=== PATIENT | male | born 1955 | race Caucasian/White ===

== ENCOUNTER 2017-06-27 09:57 | Inpatient (IN) | payer BC ==
[2017-06-27] MEDS ORDERED: Sodium Chloride 0.9% 10 ML Syringe FLUSH PRN (10:20)
[2017-06-27] MEDS ORDERED: methylPREDNISolone Sodium Succinate 125 MG/2 ML SDV IVPUSH ONE (10:21)
[2017-06-27] MEDS ORDERED: Albuterol/Ipratropium 3.0-0.5 MG/3 ML Neb Soln NEB ONE ×2 (10:21→11:40)
--- NOTE | 2017-06-27 10:51 | EDM.PDOC ---
ED HPI GENERAL MEDICAL PROBLEM - General Chief Complaint: Respiratory Problem Stated Complaint: SOB Time Seen by Provider: 06/27/17 10:15 Source of Information: Reports: Patient, Provider History Limitations: Reports: No Limitations - History of Present Illness INITIAL COMMENTS - FREE TEXT/NARRATIVE: The patient presents with a cough, chills and low oxygen saturations. He went to the walk in clinic and his sats were 84%. He was 88% on room air here. This has been going on for a few days. He has a history of asthma. He is on advair. He does not think he has been wheezing. He is coughing up first yellow sputum but now white. He has no measured temp at home. He does not smoke. He has no chest pain. Onset: Gradual Duration: Day(s): Severity: Moderate Improves with: Reports: None Worsens with: Reports: None Associated Symptoms: Reports: Cough, cough w sputum, Fever/Chills, Shortness of Breath. Denies: Chest Pain, Headaches, Nausea/Vomiting - Related Data Allergies Allergy/AdvReac Type Severity Reaction Status Date / Time No Known Allergies Allergy Verified 06/27/17 10:05 Home Meds: Home Meds Diltiazem [Tiazac] 180 mg PO DAILY 06/27/17 [History] FLUoxetine [PROzac] 40 mg PO DAILY 06/27/17 [History] Metoprolol? 1 tab PO DAILY 06/27/17 [History] Omeprazole [priLOSEC OTC] 20 mg PO DAILY 06/27/17 [History] Valsartan-Hctz? 06/27/17 [History] Past Medical History Cardiovascular History: Reports: Hypertension Gastrointestinal History: Reports: GERD Psychiatric History: Reports: Anxiety Social & Family History - Recreational Drug Use Recreational Drug Use: No ED ROS GENERAL - Review of Systems Review Of Systems: See Below Constitutional: Reports: Chills. Denies: Fever HEENT: Reports: No Symptoms Respiratory: Reports: Shortness of Breath, Cough, Sputum Cardiovascular: Reports: No Symptoms Endocrine: Reports: No Symptoms GI/Abdominal: Reports: No Symptoms : Reports: No Symptoms Musculoskeletal: Reports: No Symptoms ED EXAM, GENERAL - Physical Exam Exam: See Below Exam Limited By: No Limitations General Appearance: Alert, No Apparent Distress Ears: Normal External Exam Nose: Normal Inspection Head: Atraumatic, Normocephalic Neck: Normal Inspection Respiratory/Chest: No Respiratory Distress, Decreased Breath Sounds, Rhonchi Cardiovascular: Regular Rate, Rhythm, No Edema, No Murmur GI/Abdominal: Soft, Non-Tender, No Organomegaly, No Mass Back Exam: Normal Inspection Extremities: Normal Inspection Course - Vital Signs Last Recorded V/S: Last Vital Signs Temp 98.8 F 06/27/17 10:06 Pulse 78 06/27/17 10:06 Resp 18 06/27/17 10:06 BP 152/94 H 06/27/17 10:06 Pulse Ox 95 06/27/17 11:40 - Orders/Labs/Meds Orders: Active Orders 24 hr Category Date Time Status Cardiac Monitoring [RC] . DIRECTED Care 06/27/17 10:20 Active Oxygen Therapy [RC] PRN Care 06/27/17 10:20 Active Peripheral IV Care [RC] . DIRECTED Care 06/27/17 10:21 Active RT Aerosol Therapy [RC] ASDIRECTED Care 06/27/17 10:21 Active RT Aerosol Therapy [RC] ASDIRECTED Care 06/27/17 11:40 Active CULTURE BLOOD [BC] Stat Lab 06/27/17 12:10 Received CULTURE BLOOD [BC] Stat Lab 06/27/17 12:15 Received Sodium Chloride 0.9% [Normal Saline] 1,000 ml Med 06/27/17 12:30 Active IV ASDIRECTED cefTRIAXone [Rocephin] 2 gm Med 06/27/17 12:19 Active Sodium Chloride 0.9% [Normal Saline] 100 ml IV ONETIME Blood Culture x2 Reflex Set [OM.PC] Stat Oth 06/27/17 11:51 Ordered Peripheral IV Insertion Adult [OM.PC] Stat Oth 06/27/17 10:20 Ordered Medication Orders Ceftriaxone Sodium 2 gm/ (Sodium Chloride) 100 mls @ 100 mls/hr IV ONETIME ONE Stop: 06/27/17 13:18 Last Admin: 06/27/17 12:38 Dose: 100 mls/hr Sodium Chloride (Normal Saline) 1,000 mls @ 150 mls/hr IV ASDIRECTED THERESA Last Admin: 06/27/17 12:36 Dose: 150 mls/hr Labs: Laboratory Tests 06/27/17 06/27/17 Range/Units 10:24 10:24 WBC 8.88 (4.23-9.07) K/mm3 RBC 4.70 (4.63-6.08) M/mm3 Hgb 15.2 (13.7-17.5) gm/L Hct 44.1 (40.1-51.0) % MCV 93.8 H (79.0-92.2) fl MCH 32.3 H (25.7-32.2) pg MCHC 34.5 (32.2-35.5) g/dl RDW Std Deviation 43.0 (35.1-43.9) fL Plt Count 237 (163-337) K/mm3 MPV 9.4 (9.4-12.3) fl Neut % (Auto) 75.6 H (34.0-67.9) % Lymph % (Auto) 16.3 L (21.8-53.1) % [place] % (Auto) 6.1 (5.3-12.2) % Eos % (Auto) 1.7 (0.8-7.0) Baso % (Auto) 0.1 (0.1-1.2) % Neut # (Auto) 6.71 H (1.78-5.38) K/mm3 Lymph # (Auto) 1.45 (1.32-3.57) K/mm3 [place] # (Auto) 0.54 (0.30-0.82) K/mm3 Eos # (Auto) 0.15 (0.04-0.54) K/mm3 Baso # (Auto) 0.01 (0.01-0.08) K/mm3 Sodium 137 (136-145) mEq/L Potassium 2.9 L (3.5-5.1) mEq/L Chloride 100 (98-107) mEq/L Carbon Dioxide 32 (21-32) mEq/L Anion Gap 7.9 (5-15) BUN 9 (7-18) mg/dL Creatinine 1.1 (0.7-1.3) mg/dL Est Cr Clr Drug Dosing 73.74 mL/min Estimated GFR (MDRD) > 60 (>60) mL/min BUN/Creatinine Ratio 8.2 L (14-18) Glucose 105 (74-106) mg/dL Calcium 8.7 (8.5-10.1) mg/dL Total Bilirubin 0.8 (0.2-1.0) mg/dL AST 17 (15-37) U/L ALT 29 (16-63) U/L Alkaline Phosphatase 92 (46-116) U/L Total Protein 7.0 (6.4-8.2) g/dl Albumin 2.7 L (3.4-5.0) g/dl Globulin 4.3 gm/dL Albumin/Globulin Ratio 0.6 L (1-2) Meds: Medications Generic Name Dose Route Start Last Admin Trade Name Freq PRN Reason Stop Dose Admin Ceftriaxone Sodium 2 gm/ 100 mls @ 100 mls/hr 06/27/17 12:19 06/27/17 12:38 Sodium Chloride IV 06/27/17 13:18 100 mls/hr ONETIME ONE Administration Sodium Chloride 1,000 mls @ 150 mls/hr 06/27/17 12:30 06/27/17 12:36 Normal Saline IV 150 mls/hr ASDIRECTED THERESA Administration Discontinued Medications Generic Name Dose Route Start Last Admin Trade Name Freq PRN Reason Stop Dose Admin Albuterol/Ipratropium 3 ml 06/27/17 10:21 06/27/17 10:32 Duoneb 3.0-0.5 Mg/3 Ml NEB 06/27/17 10:22 3 ml ONETIME ONE Administration Albuterol/Ipratropium 3 ml 06/27/17 11:40 06/27/17 12:09 Duoneb 3.0-0.5 Mg/3 Ml NEB 06/27/17 11:41 3 ml ONETIME ONE Administration Ceftriaxone Sodium 2 gm/ 100 mls @ 100 mls/hr 06/27/17 11:51 Sodium Chloride IV 06/27/17 12:50 ONETIME ONE Methylprednisolone Sodium Succinate 125 mg 06/27/17 10:21 06/27/17 10:28 Solu-Medrol IVPUSH 06/27/17 10:22 125 mg ONETIME ONE Administration Sodium Chloride 10 ml 06/27/17 10:20 06/27/17 10:26 Saline Flush FLUSH 10 ml ASDIRECTED PRN Administration Keep Vein Open - Re-Assessments/Exams Free Text/Narrative Re-Assessment/Exam: 06/27/17 10:51 I ordered an IV saline lock, CXR, oxygen, labs, duoneb, and solu-medrol 125mg IV. 06/27/17 12:40 His CXR shows patchy areas of increased density throughout both lungs most likely representing multifocal pneumonia. Please correlate if patient has infectious symptoms. He does. His CBC looks good though. My nurse tried to get him off of the oxygen but his oxygen saturations went down to 88%. She put the oxygen back on and I ordered a duoneb, blood cultures and rocephin 2 grams IV. After the treatment my nurse turned his oxygen down to 1L from 3L and his oxygen saturations dropped to 88%. I feel he needs to be admitted. I called Dr Hampton and she agreed to the admission. Departure - Departure Time of Disposition: 12:50 Disposition: Admitted As Inpatient 68 Condition: Fair Clinical Impression: Hypoxia Pneumonia Qualifiers: Pneumonia type: due to unspecified organism Laterality: bilateral Lung location : unspecified part of lung Qualified Code(s): J18.9 - Pneumonia, unspecified organism Asthma Qualifiers: Asthma severity: moderate Asthma persistence: unspecified Asthma complication type: with acute exacerbation Qualified Code(s): J45.901 - Unspecified asthma with (acute) exacerbation - Discharge Information Referrals: Juan Tariq MD [Primary Care Provider] - Forms: ED Department Discharge - My Orders Last 24 Hours: My Active Orders 06/27/17 10:20 Cardiac Monitoring [RC] . DIRECTED Oxygen Therapy [RC] PRN Peripheral IV Insertion Adult [OM.PC] Stat 06/27/17 10:21 Peripheral IV Care [RC] . DIRECTED RT Aerosol Therapy [RC] ASDIRECTED 06/27/17 11:40 RT Aerosol Therapy [RC] ASDIRECTED 06/27/17 11:51 Blood Culture x2 Reflex Set [OM.PC] Stat 06/27/17 12:10 CULTURE BLOOD [BC] Stat 06/27/17 12:15 CULTURE BLOOD [BC] Stat 06/27/17 12:19 cefTRIAXone [Rocephin] 2 gm Sodium Chloride 0.9% [Normal Saline] 100 ml IV ONETIME 06/27/17 12:30 Sodium Chloride 0.9% [Normal Saline] 1,000 ml IV ASDIRECTED - Assessment/Plan Last 24 Hours: My Active Orders 06/27/17 10:20 Cardiac Monitoring [RC] . DIRECTED Oxygen Therapy [RC] PRN Peripheral IV Insertion Adult [OM.PC] Stat 06/27/17 10:21 Peripheral IV Care [RC] . DIRECTED RT Aerosol Therapy [RC] ASDIRECTED 06/27/17 11:40 RT Aerosol Therapy [RC] ASDIRECTED 06/27/17 11:51 Blood Culture x2 Reflex Set [OM.PC] Stat 06/27/17 12:10 CULTURE BLOOD [BC] Stat 06/27/17 12:15 CULTURE BLOOD [BC] Stat 06/27/17 12:19 cefTRIAXone [Rocephin] 2 gm Sodium Chloride 0.9% [Normal Saline] 100 ml IV ONETIME 06/27/17 12:30 Sodium Chloride 0.9% [Normal Saline] 1,000 ml IV ASDIRECTED
--- NOTE | 2017-06-27 11:05 | CR ---
Chest: Two views of the chest are obtained. Comparison: Prior chest x-ray of 12/21/08. Patchy areas of increased density are seen throughout both lungs. This is an interval change from prior chest x-ray. Heart size and mediastinum are normal. Small hiatal hernia is seen. Bony structures appear within normal limits for the patient's age. Impression: 1. Patchy areas of increased density throughout both lungs most likely representing multifocal pneumonia. Please correlate if patient has infectious symptoms. 2. Other incidental finding as noted above. Diagnostic code #3
[2017-06-27] MEDS ORDERED: cefTRIAXone 2 GM in Sodium Chloride 0.9% 100 ML IV ONE ×2 (11:51→12:19)
[2017-06-27] MEDS ORDERED: Sodium Chloride 0.9% 1,000 ML IV SCH (12:30)
--- NOTE | 2017-06-27 15:23 | PCM.HP ---
H&P History of Present Illness - General Date of Service: 06/27/17 Admit Problem/Dx: Admission Diagnosis/Problem Admission Diagnosis/Problem Pneumonia Source of Information: Patient, Provider History Limitations: Reports: No Limitations - History of Present Illness Initial Comments - Free Text/Narative: The patient is a 62 year old male who was seen at the [facility] in clinic for cough with associated yellowish sputum. He experienced shortness of breath as well as fever with chills for several days. The patient was sent to the ED after being evaluated by a healthcare provider at the [facility]. Chest X ray shows bilateral infiltrates. He is hypoxic on room air at 88%. Currently he is on NC at 95%. He has a history of asthma, and denies tobacco. He however drinks 6-8 beers nightly. Onset of Symptoms: Reports: Gradual Symptom Onset Date: 06/24/17 Duration of Symptoms: Reports: Day(s):, Getting Worse Location: Reports: Chest, Generalized Severity: Moderate Improves with: Reports: Medication Worsens with: Reports: Breathing Associated Symptoms: Reports: cough w sputum, Loss of Appetite, Malaise, Shortness of Breath - Related Data Allergies/Adverse Reactions: Allergies Allergy/AdvReac Type Severity Reaction Status Date / Time No Known Allergies Allergy Verified 06/27/17 16:10 Home Medications: Home Meds Albuterol [Ventolin HFA] 2 puff INH Q4H PRN 06/27/17 [History] Diltiazem [Tiazac] 180 mg PO BEDTIME 06/27/17 [History] FLUoxetine [PROzac] 80 mg PO DAILY 06/27/17 [History] Fluticasone/Salmeterol [Advair 250-50] 1 puff INH BID 06/27/17 [History] Metoprolol Succinate [Toprol XL 50mg] 50 mg PO DAILY 06/27/17 [History] Omeprazole [priLOSEC OTC] 20 mg PO BEDTIME 06/27/17 [History] Valsartan/Hydrochlorothiazide [Valsartan-Hctz 320-25 mg Tab] 1 tab PO DAILY 06/11 [History] Past Medical History Cardiovascular History: Reports: Hypertension Gastrointestinal History: Reports: GERD Psychiatric History: Reports: Anxiety Social & Family History - Recreational Drug Use Recreational Drug Use: No H&P Review of Systems - Review of Systems: Review Of Systems: See Below General: Reports: Fever, Chills, Malaise, Weakness HEENT: Reports: No Symptoms Pulmonary: Reports: Shortness of Breath, Wheezing, Cough, Sputum Cardiovascular: Reports: No Symptoms Gastrointestinal: Reports: No Symptoms Genitourinary: Reports: No Symptoms Musculoskeletal: Reports: No Symptoms Skin: Reports: No Symptoms Psychiatric: Reports: No Symptoms Neurological: Reports: No Symptoms Hematologic/Lymphatic: Reports: No Symptoms Immunologic: Reports: No Symptoms Exam - Exam Exam: See Below - Vital Signs Vital Signs: Last Vital Signs Temp 36.7 C 06/27/17 14:45 Pulse 88 06/27/17 14:45 Resp 22 H 06/27/17 14:45 BP 141/85 H 06/27/17 14:45 Pulse Ox 92 L 06/27/17 14:45 Weight: 104.326 kg - Exam Quality Assessment: Supplemental Oxygen General: Alert, Oriented, Cooperative HEENT: Conjunctiva Clear, Nares Patent, Normal Nasal Septum, Pupils Equal, Pupils Reactive, PERRLA Neck: Supple, Trachea Midline Lungs: Normal Respiratory Effort, Decreased Breath Sounds, Wheezing Cardiovascular: Regular Rate, Tachycardia GI/Abdominal Exam: Normal Bowel Sounds, Soft, Non-Tender, No Distention (Male) Exam: Deferred Rectal (Males) Exam: Deferred Back Exam: Normal Inspection Extremities: Normal Inspection, Non-Tender Skin: Warm Neurological: Cranial Nerves Intact, Normal Speech Neuro Extensive - Mental Status: Alert, Oriented x3, Normal Mood/Affect, Normal Cognition, Memory Intact Neuro Extensive - Motor, Sensory, Reflexes: CN II-XII Intact Psychiatric: Alert, Normal Affect, Normal Mood - Patient Data Lab Results Last 24 hrs: Laboratory Results - last 24 hr 06/27/17 06/27/17 Range/Units 10:24 10:24 WBC 8.88 (4.23-9.07) K/mm3 RBC 4.70 (4.63-6.08) M/mm3 Hgb 15.2 (13.7-17.5) gm/L Hct 44.1 (40.1-51.0) % MCV 93.8 H (79.0-92.2) fl MCH 32.3 H (25.7-32.2) pg MCHC 34.5 (32.2-35.5) g/dl RDW Std Deviation 43.0 (35.1-43.9) fL Plt Count 237 (163-337) K/mm3 MPV 9.4 (9.4-12.3) fl Neut % (Auto) 75.6 H (34.0-67.9) % Lymph % (Auto) 16.3 L (21.8-53.1) % [place] % (Auto) 6.1 (5.3-12.2) % Eos % (Auto) 1.7 (0.8-7.0) Baso % (Auto) 0.1 (0.1-1.2) % Neut # (Auto) 6.71 H (1.78-5.38) K/mm3 Lymph # (Auto) 1.45 (1.32-3.57) K/mm3 [place] # (Auto) 0.54 (0.30-0.82) K/mm3 Eos # (Auto) 0.15 (0.04-0.54) K/mm3 Baso # (Auto) 0.01 (0.01-0.08) K/mm3 Sodium 137 (136-145) mEq/L Potassium 2.9 L (3.5-5.1) mEq/L Chloride 100 (98-107) mEq/L Carbon Dioxide 32 (21-32) mEq/L Anion Gap 7.9 (5-15) BUN 9 (7-18) mg/dL Creatinine 1.1 (0.7-1.3) mg/dL Est Cr Clr Drug Dosing 73.74 mL/min Estimated GFR (MDRD) > 60 (>60) mL/min BUN/Creatinine Ratio 8.2 L (14-18) Glucose 105 (74-106) mg/dL Calcium 8.7 (8.5-10.1) mg/dL Total Bilirubin 0.8 (0.2-1.0) mg/dL AST 17 (15-37) U/L ALT 29 (16-63) U/L Alkaline Phosphatase 92 (46-116) U/L Total Protein 7.0 (6.4-8.2) g/dl Albumin 2.7 L (3.4-5.0) g/dl Globulin 4.3 gm/dL Albumin/Globulin Ratio 0.6 L (1-2) Result Diagrams: 06/27/17 10:24 06/27/17 10:24 - Problem List (1) Anxiety SNOMED Code(s): 62025657 ICD Code: F41.9 - ANXIETY DISORDER, UNSPECIFIED Status: Acute Current Visit: Yes (2) Alcohol abuse SNOMED Code(s): 36748820 ICD Code: F10.10 - ALCOHOL ABUSE, UNCOMPLICATED Status: Acute Current Visit: Yes (3) Hypertension SNOMED Code(s): 43186744 ICD Code: I10 - ESSENTIAL (PRIMARY) HYPERTENSION Status: Acute Current Visit: Yes (4) GERD (gastroesophageal reflux disease) SNOMED Code(s): 259348566 ICD Code: K21.9 - GASTRO-ESOPHAGEAL REFLUX DISEASE WITHOUT ESOPHAGITIS Status: Acute Current Visit: Yes (5) Asthma SNOMED Code(s): 083032634 ICD Code: J45.909 - UNSPECIFIED ASTHMA, UNCOMPLICATED Status: Acute Current Visit: No Qualifiers: Asthma severity: moderate Asthma persistence: unspecified Asthma complication type: with acute exacerbation Qualified Code(s): J45.901 - Unspecified asthma with (acute) exacerbation (6) Hypoxia SNOMED Code(s): 844674760 ICD Code: R09.02 - HYPOXEMIA Status: Acute Current Visit: No (7) Pneumonia SNOMED Code(s): 151668499 ICD Code: J18.9 - PNEUMONIA, UNSPECIFIED ORGANISM Status: Acute Current Visit: No Qualifiers: Pneumonia type: due to unspecified organism Laterality: bilateral Lung location: unspecified part of lung Qualified Code(s): J18.9 - Pneumonia, unspecified organism Problem List Initiated/Reviewed/Updated: Yes Orders Last 24hrs: Active Orders 24 hr Category Date Time Status Patient Status [ADT] Routine ADT 06/27/17 14:16 Active Cardiac Monitoring [RC] . DIRECTED Care 06/27/17 10:20 Active Oxygen Therapy [RC] PRN Care 06/27/17 10:20 Active Peripheral IV Care [RC] . DIRECTED Care 06/27/17 10:21 Active RT Aerosol Therapy [RC] ASDIRECTED Care 06/27/17 10:21 Active RT Aerosol Therapy [RC] ASDIRECTED Care 06/27/17 11:40 Active CULTURE BLOOD [BC] Stat Lab 06/27/17 12:10 Received CULTURE BLOOD [BC] Stat Lab 06/27/17 12:15 Received Sodium Chloride 0.9% [Normal Saline] 1,000 ml Med 06/27/17 12:30 Active IV ASDIRECTED Sodium Chloride 0.9% [Saline Flush] Med 06/27/17 10:20 Active 10 ml FLUSH ASDIRECTED PRN Blood Culture x2 Reflex Set [OM.PC] Stat Oth 06/27/17 11:51 Ordered Peripheral IV Insertion Adult [OM.PC] Stat Oth 06/27/17 10:20 Ordered Medication Orders Sodium Chloride (Normal Saline) 1,000 mls @ 150 mls/hr IV ASDIRECTED THERESA Last Admin: 06/27/17 12:36 Dose: 150 mls/hr Sodium Chloride (Saline Flush) 10 ml FLUSH ASDIRECTED PRN PRN Reason: Keep Vein Open Last Admin: 06/27/17 10:26 Dose: 10 ml Assessment/Plan Comment:: Impression: CAP with hypoxia History of Asthma History of chronic ethanol abuse History of anxiety Hypertension Plan: Droplet isolation Infectious work up Empiric ATB for CAP Nebs scheduled/prn CIWA ETOH protocol SZ precaution Aspiration precaution DVT/GI prophylaxis
[2017-06-27] MEDS ORDERED: Pneumococcal Polyvalent-23 Vaccine 0.5 ML SDV IM ONE (15:27)
[2017-06-27] MEDS ORDERED: Albuterol 0.083% 2.5 MG/3 ML Neb Soln NEB PRN (16:34)
[2017-06-27] MEDS ORDERED: Benzonatate 100 MG Cap PO PRN (16:39)
[2017-06-27] MEDS ORDERED: LORazepam 2 MG/ML SDV IVPUSH PRN (16:43)
[2017-06-27] MEDS ORDERED: Albuterol/Ipratropium 3.0-0.5 MG/3 ML Neb Soln ONE (16:48)
[2017-06-27] MEDS: Diltiazem 180 MG Cap.CD PO SCH (16:52)
[2017-06-27] MEDS ORDERED: Omeprazole 20 MG Cap.CR PO SCH (17:00)
[2017-06-27] MEDS ORDERED: Azithromycin 500 MG in Sodium Chloride 0.9% 250 ML IV SCH (17:00)
[2017-06-27] MEDS ORDERED: Magnesium Sulfate/Water 2 GM in Premix Bag 1 BAG IV ONE ×2 (17:24→18:45)
[2017-06-27] MEDS: Pantoprazole 40 MG Tab.CR PO SCH (18:09)
[2017-06-27] MEDS: Azithromycin 500 MG in Sodium Chloride 0.9% 250 ML IV SCH (18:10)
[2017-06-27] MEDS: methylPREDNISolone Sodium Succinate 125 MG/2 ML SDV IVPUSH SCH (18:15)
[2017-06-27] MEDS: Sodium Chloride 0.9% 1,000 ML IV SCH (19:52)
[2017-06-27] MEDS: Formoterol/Mometasone 200-5 MCG 8.8 GM Inhaler IH SCH (20:46)
[2017-06-27] MEDS: Albuterol/Ipratropium 3.0-0.5 MG/3 ML Neb Soln NEB SCH (20:46)
[2017-06-27] MEDS: Potassium Chloride 20 MEQ Tab.ER PO SCH (21:42)
[2017-06-27] MEDS: Temazepam 15 MG Cap PO PRN (21:43)
[2017-06-28] MEDS: Sodium Chloride 0.9% 1,000 ML IV SCH ×2 (03:18→10:10)
[2017-06-28] MEDS: methylPREDNISolone Sodium Succinate 125 MG/2 ML SDV IVPUSH SCH ×3 (03:18→18:01)
[2017-06-28] MEDS: Albuterol/Ipratropium 3.0-0.5 MG/3 ML Neb Soln NEB SCH ×4 (06:19→20:53)
[2017-06-28] MEDS: Potassium Chloride 20 MEQ Tab.ER PO SCH ×2 (08:39→21:07)
[2017-06-28] MEDS: FLUoxetine 20 MG Cap PO SCH (08:40)
[2017-06-28] MEDS: Metoprolol Succinate 50 MG Tab.ER PO SCH (08:40)
[2017-06-28] MEDS: Saccharomyces Boulardii (Probiotic) 250 MG Cap PO SCH (08:42)
[2017-06-28] MEDS ORDERED: FLUoxetine 20 MG Cap PO SCH (09:00)
[2017-06-28] MEDS: Formoterol/Mometasone 200-5 MCG 8.8 GM Inhaler IH SCH ×2 (09:31→20:52)
[2017-06-28] MEDS ORDERED: Azithromycin 500 MG AdvVial IV SCH (13:00)
--- NOTE | 2017-06-28 15:37 | PCM.PN ---
- General Info Date of Service: 06/28/17 Functional Status: Reports: Pain Controlled, Tolerating Diet, Ambulating, Urinating - Review of Systems General: Reports: No Symptoms HEENT: Reports: No Symptoms Pulmonary: Reports: No Symptoms Cardiovascular: Reports: No Symptoms Gastrointestinal: Reports: No Symptoms Genitourinary: Reports: No Symptoms Musculoskeletal: Reports: No Symptoms Skin: Reports: No Symptoms Neurological: Reports: No Symptoms Psychiatric: Reports: No Symptoms - Patient Data Vitals - Most Recent: Last Vital Signs Temp 36.8 C 06/28/17 03:22 Pulse 97 06/28/17 08:43 Resp 16 06/28/17 08:43 BP 140/74 06/28/17 08:43 Pulse Ox 93 L 06/28/17 15:16 Weight - Most Recent: 105.007 kg I&O - Last 24 Hours: Intake & Output 06/28/17 06/28/17 06/28/17 06:59 14:59 22:59 Intake Total 2881 250 Output Total 850 Balance 2031 250 Lab Results Last 24 Hours: Laboratory Results - last 24 hr 06/27/17 06/28/17 06/28/17 Range/Units 10:24 06:00 06:00 WBC 12.52 H (4.23-9.07) K/mm3 RBC 4.54 L (4.63-6.08) M/mm3 Hgb 14.6 (13.7-17.5) gm/L Hct 42.8 (40.1-51.0) % MCV 94.3 H (79.0-92.2) fl MCH 32.2 (25.7-32.2) pg MCHC 34.1 (32.2-35.5) g/dl RDW Std Deviation 43.6 (35.1-43.9) fL Plt Count 260 (163-337) K/mm3 MPV 9.9 (9.4-12.3) fl Neut % (Auto) 91.6 H (34.0-67.9) % Lymph % (Auto) 5.6 L (21.8-53.1) % [place] % (Auto) 2.6 L (5.3-12.2) % Eos % (Auto) 0 L (0.8-7.0) Baso % (Auto) 0.0 L (0.1-1.2) % Neut # (Auto) 11.46 H (1.78-5.38) K/mm3 Lymph # (Auto) 0.70 L (1.32-3.57) K/mm3 [place] # (Auto) 0.33 (0.30-0.82) K/mm3 Eos # (Auto) 0.00 L (0.04-0.54) K/mm3 Baso # (Auto) 0.00 L (0.01-0.08) K/mm3 Manual Slide Review Abnormal smear Sodium 143 (136-145) mEq/L Potassium 3.1 L (3.5-5.1) mEq/L Chloride 104 (98-107) mEq/L Carbon Dioxide 28 (21-32) mEq/L Anion Gap 14.1 (5-15) BUN 13 (7-18) mg/dL Creatinine 1.1 (0.7-1.3) mg/dL Est Cr Clr Drug Dosing 73.74 mL/min Estimated GFR (MDRD) > 60 (>60) mL/min BUN/Creatinine Ratio 11.8 L (14-18) Glucose 158 H (74-106) mg/dL Lactic Acid (0.4-2.0) mmol/L Calcium 8.6 (8.5-10.1) mg/dL Magnesium 1.7 L 2.1 (1.8-2.4) mg/dl C-Reactive Protein 16.8 H* (<1.0) mg/dL Mycoplasma pneumon IgM Negative (NEGATIVE) 06/28/17 Range/Units 06:00 WBC (4.23-9.07) K/mm3 RBC (4.63-6.08) M/mm3 Hgb (13.7-17.5) gm/L Hct (40.1-51.0) % MCV (79.0-92.2) fl MCH (25.7-32.2) pg MCHC (32.2-35.5) g/dl RDW Std Deviation (35.1-43.9) fL Plt Count (163-337) K/mm3 MPV (9.4-12.3) fl Neut % (Auto) (34.0-67.9) % Lymph % (Auto) (21.8-53.1) % [place] % (Auto) (5.3-12.2) % Eos % (Auto) (0.8-7.0) Baso % (Auto) (0.1-1.2) % Neut # (Auto) (1.78-5.38) K/mm3 Lymph # (Auto) (1.32-3.57) K/mm3 [place] # (Auto) (0.30-0.82) K/mm3 Eos # (Auto) (0.04-0.54) K/mm3 Baso # (Auto) (0.01-0.08) K/mm3 Manual Slide Review Sodium (136-145) mEq/L Potassium (3.5-5.1) mEq/L Chloride (98-107) mEq/L Carbon Dioxide (21-32) mEq/L Anion Gap (5-15) BUN (7-18) mg/dL Creatinine (0.7-1.3) mg/dL Est Cr Clr Drug Dosing mL/min Estimated GFR (MDRD) (>60) mL/min BUN/Creatinine Ratio (14-18) Glucose (74-106) mg/dL Lactic Acid 2.1 H (0.4-2.0) mmol/L Calcium (8.5-10.1) mg/dL Magnesium (1.8-2.4) mg/dl C-Reactive Protein (<1.0) mg/dL Mycoplasma pneumon IgM (NEGATIVE) Rex Results Last 24 Hours: Microbiology 06/27/17 12:15 Aerobic Blood Culture - Preliminary Blood - Venous - Lab Draw NO GROWTH AFTER 1 DAY Anaerobic Blood Culture - Preliminary NO GROWTH AFTER 1 DAY 06/27/17 12:10 Aerobic Blood Culture - Preliminary Blood - Venous NO GROWTH AFTER 1 DAY Anaerobic Blood Culture - Preliminary NO GROWTH AFTER 1 DAY 06/28/17 06:36 Gram Stain - Final Sputum - Expectorated Med Orders - Current: Current Medications Albuterol (Proventil Neb Soln) 2.5 mg NEB Q4HRRT PRN PRN Reason: sob Last Admin: 06/27/17 16:54 Dose: 2.5 mg Albuterol/Ipratropium (Duoneb 3.0-0.5 Mg/3 Ml) 3 ml NEB QIDRT [facility] Last Admin: 06/28/17 15:16 Dose: 3 ml Benzonatate (Tessalon Perles) 200 mg PO TID PRN PRN Reason: Cough Diltiazem HCl (Cardizem Cd) 180 mg PO DAILY@1700 [facility] Last Admin: 06/27/17 16:52 Dose: 180 mg Fluoxetine HCl (Prozac) 80 mg PO DAILY [facility] Last Admin: 06/28/17 08:40 Dose: 80 mg Ceftriaxone Sodium 2 gm/ (Dextrose/Water) 100 mls @ 100 mls/hr IV Q24H [facility] Last Admin: 06/28/17 11:28 Dose: 100 mls/hr Azithromycin 500 mg/ Sodium (Chloride) 250 mls @ 250 mls/hr IV Q24H [facility] Last Admin: 06/27/17 18:10 Dose: 250 mls/hr Sodium Chloride (Normal Saline) 1,000 mls @ 150 mls/hr IV ASDIRECTED [facility] Last Admin: 06/28/17 10:10 Dose: 150 mls/hr Lorazepam (Ativan) 1 mg IVPUSH Q4H PRN PRN Reason: Anxiety Methylprednisolone Sodium Succinate (Solu-Medrol) 125 mg IVPUSH Q8H [facility] Last Admin: 06/28/17 10:08 Dose: 125 mg Metoprolol Succinate (Toprol Xl) 50 mg PO DAILY [facility] Last Admin: 06/28/17 08:40 Dose: 50 mg Mometasone Furoate/Formoterol Fumar (Dulera 200-5 Mcg) 2 puff IH BID [facility] Last Admin: 06/28/17 09:31 Dose: 2 puff Pantoprazole Sodium (Protonix) 40 mg PO DAILY@1700 [facility] Last Admin: 06/27/17 18:09 Dose: 40 mg Potassium Chloride (Klor-Con M20) 40 meq PO BID [facility] Stop: 06/29/17 09:01 Last Admin: 06/28/17 08:39 Dose: 40 meq Saccharomyces Boulardii (Florastor) 250 mg PO DAILY [facility] Last Admin: 06/28/17 08:42 Dose: 250 mg Sodium Chloride (Saline Flush) 10 ml FLUSH ASDIRECTED PRN PRN Reason: Keep Vein Open Last Admin: 06/27/17 10:26 Dose: 10 ml Temazepam (Restoril) 15 mg PO BEDTIME PRN PRN Reason: Insomnia Last Admin: 06/27/17 21:43 Dose: 15 mg Discontinued Medications Albuterol/Ipratropium (Duoneb 3.0-0.5 Mg/3 Ml) 3 ml NEB ONETIME ONE Stop: 06/27/17 10:22 Last Admin: 06/27/17 10:32 Dose: 3 ml Albuterol/Ipratropium (Duoneb 3.0-0.5 Mg/3 Ml) 3 ml NEB ONETIME ONE Stop: 06/27/17 11:41 Last Admin: 06/27/17 12:09 Dose: 3 ml Albuterol/Ipratropium (Duoneb 3.0-0.5 Mg/3 Ml) Confirm Administered Dose 3 ml .ROUTE .STK-MED ONE Stop: 06/27/17 16:49 Last Admin: 06/27/17 17:01 Dose: Not Given Azithromycin (Zithromax) 500 mg IV Q24H [facility] Fluoxetine HCl (Prozac) 40 mg PO DAILY [facility] Ceftriaxone Sodium 2 gm/ (Sodium Chloride) 100 mls @ 100 mls/hr IV ONETIME ONE Stop: 06/27/17 12:50 Last Admin: 06/27/17 15:26 Dose: Not Given Ceftriaxone Sodium 2 gm/ (Sodium Chloride) 100 mls @ 100 mls/hr IV ONETIME ONE Stop: 06/27/17 13:18 Last Admin: 06/27/17 12:38 Dose: 100 mls/hr Sodium Chloride (Normal Saline) 1,000 mls @ 150 mls/hr IV ASDIRECTED [facility] Last Admin: 06/27/17 12:36 Dose: 150 mls/hr Azithromycin 500 mg/ Sodium (Chloride) 250 mls @ 250 mls/hr IV Q24H [facility] Magnesium Sulfate 2 gm/ Premix 50 mls @ 25 mls/hr IV ONETIME ONE Stop: 06/27/17 19:23 Last Admin: 06/27/17 18:35 Dose: Not Given Magnesium Sulfate 2 gm/ Premix 50 mls @ 25 mls/hr IV ONETIME ONE Stop: 06/27/17 20:44 Last Admin: 06/27/17 19:54 Dose: 25 mls/hr Methylprednisolone Sodium Succinate (Solu-Medrol) 125 mg IVPUSH ONETIME ONE Stop: 06/27/17 10:22 Last Admin: 06/27/17 10:28 Dose: 125 mg Omeprazole (Omeprazole) 20 mg PO DAILY@1700 [facility] Pneumococcal Polyvalent Vaccine (Pneumovax 23) 0.5 ml IM .ONCE ONE Stop: 06/27/17 15:28 - Exam Quality Assessment: Supplemental Oxygen, DVT Prophylaxis General: Alert, Oriented, Cooperative, No Acute Distress HEENT: Pupils Equal, Pupils Reactive, EOMI Neck: Trachea Midline, No JVD Lungs: Normal Respiratory Effort Cardiovascular: Regular Rate, Regular Rhythm GI/Abdominal Exam: Normal Bowel Sounds, Soft, Non-Tender, No Organomegaly, No Distention (Male) Exam: Deferred Back Exam: Normal Inspection Extremities: Normal Inspection, Normal Capillary Refill Skin: Warm Neurological: No New Focal Deficit Psy/Mental Status: Alert, Normal Affect, Normal Mood - Problem List & Annotations (1) Anxiety SNOMED Code(s): 50820549 Code(s): F41.9 - ANXIETY DISORDER, UNSPECIFIED Status: Acute Current Visit: Yes (2) Alcohol abuse SNOMED Code(s): 98148994 Code(s): F10.10 - ALCOHOL ABUSE, UNCOMPLICATED Status: Acute Current Visit: Yes (3) Hypertension SNOMED Code(s): 95721524 Code(s): I10 - ESSENTIAL (PRIMARY) HYPERTENSION Status: Acute Current Visit: Yes (4) GERD (gastroesophageal reflux disease) SNOMED Code(s): 513227105 Code(s): K21.9 - GASTRO-ESOPHAGEAL REFLUX DISEASE WITHOUT ESOPHAGITIS Status: Acute Current Visit: Yes (5) Asthma SNOMED Code(s): 845399241 Code(s): J45.909 - UNSPECIFIED ASTHMA, UNCOMPLICATED Status: Acute Current Visit: No Qualifiers: Asthma severity: moderate Asthma persistence: unspecified Asthma complication type: with acute exacerbation Qualified Code(s): J45.901 - Unspecified asthma with (acute) exacerbation (6) Hypoxia SNOMED Code(s): 284187964 Code(s): R09.02 - HYPOXEMIA Status: Acute Current Visit: No (7) Pneumonia SNOMED Code(s): 871040494 Code(s): J18.9 - PNEUMONIA, UNSPECIFIED ORGANISM Status: Acute Current Visit: No Qualifiers: Pneumonia type: due to unspecified organism Laterality: bilateral Lung location: unspecified part of lung Qualified Code(s): J18.9 - Pneumonia, unspecified organism - Problem List Review Problem List Initiated/Reviewed/Updated: Yes - My Orders Last 24 Hours: My Active Orders 06/27/17 15:31 CIWAA Assessment [RC] Q4HR Vital Signs [RC] 03,09,15,21 06/27/17 16:33 RT Aerosol Therapy [RC] ASDIRECTED 06/27/17 16:34 Albuterol [Proventil Neb Soln] 2.5 mg NEB Q4HRRT PRN 06/27/17 16:39 Benzonatate [Tessalon Perles] 200 mg PO TID PRN 06/27/17 16:43 LORazepam [Ativan] 1 mg IVPUSH Q4H PRN 06/27/17 16:45 Temazepam [Restoril] 15 mg PO BEDTIME PRN 06/27/17 17:00 Azithromycin [Zithromax] 500 mg Sodium Chloride 0.9% [Normal Saline] 250 ml IV Q24H Diltiazem [Cardizem CD] 180 mg PO DAILY@1700 Pantoprazole [ProTONIX] 40 mg PO DAILY@1700 06/27/17 18:20 RESPIRATORY PANEL BY PCR [MREF] Routine STREP PNEUMONIAE ANTIGEN [MREF] Routine 06/27/17 18:30 methylPREDNISolone Sod Succ [Solu-MEDROL] 125 mg IVPUSH Q8H 06/27/17 19:56 Code Status [Resuscitation Status] Routine 06/27/17 21:00 Albuterol/Ipratropium [DuoNeb 3.0-0.5 MG/3 ML] 3 ml NEB QIDRT Mometasone/Formoterol [Dulera 200-5 MCG] 2 puff IH BID Potassium Chloride [Klor-Con M20] 40 meq PO BID 06/28/17 06:36 CULTURE SPUTUM + SMEAR [RM] Routine 06/28/17 09:00 FLUoxetine [PROzac] 80 mg PO DAILY Metoprolol Succinate [Toprol XL] 50 mg PO DAILY Saccharomyces Boulardii [Florastor] 250 mg PO DAILY 06/28/17 12:00 cefTRIAXone [Rocephin] 2 gm Dextrose 5% in Water 100 ml IV Q24H 06/28/17 13:56 CARLOS Hose [Antiembolic Hose] [OM.PC] Routine 06/28/17 Breakfast Heart Healthy Diet [DIET] 06/29/17 05:00 BMP [BASIC METABOLIC PANEL,BMP] [CHEM] DAILY CBC WITH AUTO DIFF [HEME] DAILY CRP [C-REACTIVE PROTEIN] [CHEM] DAILY GLYCOSYLATED HEMOGLOBIN,HGBA1C [CHEM] Routine LACTIC ACID [CHEM] DAILY MAGNESIUM [CHEM] DAILY 06/29/17 09:00 CXR [Chest 2V] [CR] Routine 06/30/17 05:00 BMP [BASIC METABOLIC PANEL,BMP] [CHEM] DAILY CBC WITH AUTO DIFF [HEME] DAILY CRP [C-REACTIVE PROTEIN] [CHEM] DAILY LACTIC ACID [CHEM] DAILY MAGNESIUM [CHEM] DAILY 06/30/17 10:00 CXR [Chest 2V] [CR] Routine 07/01/17 05:00 BMP [BASIC METABOLIC PANEL,BMP] [CHEM] DAILY CBC WITH AUTO DIFF [HEME] DAILY CRP [C-REACTIVE PROTEIN] [CHEM] DAILY LACTIC ACID [CHEM] DAILY MAGNESIUM [CHEM] DAILY - Plan Plan:: Impression: CAP with hypoxia History of Asthma History of chronic ethanol abuse History of anxiety Hypertension Plan: Wean O2 as tolerated. Droplet isolation Infectious work up Empiric ATB for CAP Nebs scheduled/prn CIWA ETOH protocol SZ precaution Aspiration precaution DVT/GI prophylaxis
[2017-06-28] MEDS: Diltiazem 180 MG Cap.CD PO SCH (18:01)
[2017-06-28] MEDS: Pantoprazole 40 MG Tab.CR PO SCH (18:01)
[2017-06-28] MEDS: Azithromycin 500 MG in Sodium Chloride 0.9% 250 ML IV SCH (18:01)
[2017-06-28] MEDS: Temazepam 15 MG Cap PO PRN (21:07)
[2017-06-29] MEDS: methylPREDNISolone Sodium Succinate 125 MG/2 ML SDV IVPUSH SCH (03:28)
[2017-06-29] MEDS: Albuterol/Ipratropium 3.0-0.5 MG/3 ML Neb Soln NEB SCH ×4 (06:50→20:34)
[2017-06-29] MEDS ORDERED: Cephalexin 500 MG Cap PO SCH (09:30)
[2017-06-29] MEDS: Formoterol/Mometasone 200-5 MCG 8.8 GM Inhaler IH SCH ×2 (09:55→20:34)
[2017-06-29] MEDS: Potassium Chloride 20 MEQ Tab.ER PO SCH (11:52)
[2017-06-29] MEDS: FLUoxetine 20 MG Cap PO SCH (11:52)
[2017-06-29] MEDS: Metoprolol Succinate 50 MG Tab.ER PO SCH (11:52)
[2017-06-29] MEDS: Saccharomyces Boulardii (Probiotic) 250 MG Cap PO SCH (11:52)
[2017-06-29] MEDS: methylPREDNISolone Sodium Succinate 40 MG/1 ML SDV IVPUSH SCH ×2 (11:53→21:33)
--- NOTE | 2017-06-29 14:43 | PCM.PN ---
- General Info Date of Service: 06/29/17 Subjective Update: Multiple complaints from 2 hour late medications, wrong dose of Prozac and unable to take a shower all occuring yesterday. He had wanted to be transferred but is willing to stay. The patient ambulated and has required 1l/ min of O2, the goal is DC tomorrow. Resp care to check O2 needs, and if needed DC on home O2 for 1 week. Solumedrol has been decreased, he will need prednisone taper at DC. Functional Status: Reports: Tolerating Diet, Ambulating, Urinating - Review of Systems General: Reports: No Symptoms HEENT: Reports: No Symptoms Pulmonary: Reports: No Symptoms Cardiovascular: Reports: No Symptoms Gastrointestinal: Reports: No Symptoms Genitourinary: Reports: No Symptoms Musculoskeletal: Reports: No Symptoms Skin: Reports: No Symptoms Neurological: Reports: No Symptoms Psychiatric: Reports: No Symptoms - Patient Data Vitals - Most Recent: Last Vital Signs Temp 36.7 C 06/29/17 10:50 Pulse 85 06/29/17 12:07 Resp 20 06/29/17 10:50 BP 143/72 H 06/29/17 11:52 Pulse Ox 95 06/29/17 12:07 Weight - Most Recent: 105.007 kg I&O - Last 24 Hours: Intake & Output 06/28/17 06/29/17 06/29/17 22:59 06:59 14:59 Intake Total 2993 400 Output Total 400 850 Balance 2593 -450 Lab Results Last 24 Hours: Laboratory Results - last 24 hr 06/29/17 06/29/17 06/29/17 Range/Units 05:55 05:55 05:55 WBC 14.45 H (4.23-9.07) K/mm3 RBC 4.35 L (4.63-6.08) M/mm3 Hgb 14.1 (13.7-17.5) gm/L Hct 41.7 (40.1-51.0) % MCV 95.9 H (79.0-92.2) fl MCH 32.4 H (25.7-32.2) pg MCHC 33.8 (32.2-35.5) g/dl RDW Std Deviation 44.9 H (35.1-43.9) fL Plt Count 278 (163-337) K/mm3 MPV 9.9 (9.4-12.3) fl Neut % (Auto) 92.7 H (34.0-67.9) % Lymph % (Auto) 4.1 L (21.8-53.1) % [place] % (Auto) 2.8 L (5.3-12.2) % Eos % (Auto) 0 L (0.8-7.0) Baso % (Auto) 0.1 (0.1-1.2) % Neut # (Auto) 13.41 H (1.78-5.38) K/mm3 Lymph # (Auto) 0.59 L (1.32-3.57) K/mm3 [place] # (Auto) 0.40 (0.30-0.82) K/mm3 Eos # (Auto) 0.00 L (0.04-0.54) K/mm3 Baso # (Auto) 0.01 (0.01-0.08) K/mm3 Manual Slide Review Abnormal smear Sodium 141 (136-145) mEq/L Potassium 3.7 (3.5-5.1) mEq/L Chloride 107 (98-107) mEq/L Carbon Dioxide 26 (21-32) mEq/L Anion Gap 11.7 (5-15) BUN 16 (7-18) mg/dL Creatinine 0.9 (0.7-1.3) mg/dL Est Cr Clr Drug Dosing 90.12 mL/min Estimated GFR (MDRD) > 60 (>60) mL/min BUN/Creatinine Ratio 17.8 (14-18) Glucose 165 H (74-106) mg/dL Hemoglobin A1c (4.50-6.20) % Lactic Acid 1.8 (0.4-2.0) mmol/L Calcium 8.5 (8.5-10.1) mg/dL Magnesium 2.2 (1.8-2.4) mg/dl C-Reactive Protein 5.6 H* (<1.0) mg/dL 06/29/17 Range/Units 05:55 WBC (4.23-9.07) K/mm3 RBC (4.63-6.08) M/mm3 Hgb (13.7-17.5) gm/L Hct (40.1-51.0) % MCV (79.0-92.2) fl MCH (25.7-32.2) pg MCHC (32.2-35.5) g/dl RDW Std Deviation (35.1-43.9) fL Plt Count (163-337) K/mm3 MPV (9.4-12.3) fl Neut % (Auto) (34.0-67.9) % Lymph % (Auto) (21.8-53.1) % [place] % (Auto) (5.3-12.2) % Eos % (Auto) (0.8-7.0) Baso % (Auto) (0.1-1.2) % Neut # (Auto) (1.78-5.38) K/mm3 Lymph # (Auto) (1.32-3.57) K/mm3 [place] # (Auto) (0.30-0.82) K/mm3 Eos # (Auto) (0.04-0.54) K/mm3 Baso # (Auto) (0.01-0.08) K/mm3 Manual Slide Review Sodium (136-145) mEq/L Potassium (3.5-5.1) mEq/L Chloride (98-107) mEq/L Carbon Dioxide (21-32) mEq/L Anion Gap (5-15) BUN (7-18) mg/dL Creatinine (0.7-1.3) mg/dL Est Cr Clr Drug Dosing mL/min Estimated GFR (MDRD) (>60) mL/min BUN/Creatinine Ratio (14-18) Glucose (74-106) mg/dL Hemoglobin A1c 5.40 (4.50-6.20) % Lactic Acid (0.4-2.0) mmol/L Calcium (8.5-10.1) mg/dL Magnesium (1.8-2.4) mg/dl C-Reactive Protein (<1.0) mg/dL Rex Results Last 24 Hours: Microbiology 06/28/17 06:36 Gram Stain - Final Sputum - Expectorated Sputum Culture - Preliminary 06/27/17 12:15 Aerobic Blood Culture - Preliminary Blood - Venous - Lab Draw NO GROWTH AFTER 2 DAYS Anaerobic Blood Culture - Preliminary NO GROWTH AFTER 2 DAYS 06/27/17 12:10 Aerobic Blood Culture - Preliminary Blood - Venous NO GROWTH AFTER 2 DAYS Anaerobic Blood Culture - Preliminary NO GROWTH AFTER 2 DAYS Med Orders - Current: Current Medications Albuterol (Proventil Neb Soln) 2.5 mg NEB Q4HRRT PRN PRN Reason: sob Last Admin: 06/27/17 16:54 Dose: 2.5 mg Albuterol/Ipratropium (Duoneb 3.0-0.5 Mg/3 Ml) 3 ml NEB QIDRT [facility] Last Admin: 06/29/17 09:56 Dose: 3 ml Azithromycin (Zithromax) 250 mg PO Q24H [facility] Benzonatate (Tessalon Perles) 200 mg PO TID PRN PRN Reason: Cough Diltiazem HCl (Cardizem Cd) 180 mg PO DAILY@1700 [facility] Last Admin: 06/28/17 18:01 Dose: 180 mg Fluoxetine HCl (Prozac) 80 mg PO DAILY [facility] Last Admin: 06/29/17 11:52 Dose: 40 mg Ceftriaxone Sodium 2 gm/ (Dextrose/Water) 100 mls @ 100 mls/hr IV Q24H [facility] Last Admin: 06/29/17 12:33 Dose: 100 mls/hr Lorazepam (Ativan) 1 mg IVPUSH Q4H PRN PRN Reason: Anxiety Methylprednisolone Sodium Succinate (Solu-Medrol) 80 mg IVPUSH Q12H [facility] Last Admin: 06/29/17 11:53 Dose: 80 mg Metoprolol Succinate (Toprol Xl) 50 mg PO DAILY [facility] Last Admin: 06/29/17 11:52 Dose: 50 mg Mometasone Furoate/Formoterol Fumar (Dulera 200-5 Mcg) 2 puff IH BID [facility] Last Admin: 06/29/17 09:55 Dose: 2 puff Pantoprazole Sodium (Protonix) 40 mg PO DAILY@1700 [facility] Last Admin: 06/28/17 18:01 Dose: 40 mg Saccharomyces Boulardii (Florastor) 250 mg PO DAILY [facility] Last Admin: 06/29/17 11:52 Dose: 250 mg Sodium Chloride (Saline Flush) 10 ml FLUSH ASDIRECTED PRN PRN Reason: Keep Vein Open Last Admin: 06/27/17 10:26 Dose: 10 ml Temazepam (Restoril) 15 mg PO BEDTIME PRN PRN Reason: Insomnia Last Admin: 06/28/17 21:07 Dose: 15 mg Discontinued Medications Albuterol/Ipratropium (Duoneb 3.0-0.5 Mg/3 Ml) 3 ml NEB ONETIME ONE Stop: 06/27/17 10:22 Last Admin: 06/27/17 10:32 Dose: 3 ml Albuterol/Ipratropium (Duoneb 3.0-0.5 Mg/3 Ml) 3 ml NEB ONETIME ONE Stop: 06/27/17 11:41 Last Admin: 06/27/17 12:09 Dose: 3 ml Albuterol/Ipratropium (Duoneb 3.0-0.5 Mg/3 Ml) Confirm Administered Dose 3 ml .ROUTE .STK-MED ONE Stop: 06/27/17 16:49 Last Admin: 06/27/17 17:01 Dose: Not Given Azithromycin (Zithromax) 500 mg IV Q24H [facility] Cephalexin (Keflex) 500 mg PO Q12H [facility] Fluoxetine HCl (Prozac) 40 mg PO DAILY [facility] Ceftriaxone Sodium 2 gm/ (Sodium Chloride) 100 mls @ 100 mls/hr IV ONETIME ONE Stop: 06/27/17 12:50 Last Admin: 06/27/17 15:26 Dose: Not Given Ceftriaxone Sodium 2 gm/ (Sodium Chloride) 100 mls @ 100 mls/hr IV ONETIME ONE Stop: 06/27/17 13:18 Last Admin: 06/27/17 12:38 Dose: 100 mls/hr Sodium Chloride (Normal Saline) 1,000 mls @ 150 mls/hr IV ASDIRECTED [facility] Last Admin: 06/27/17 12:36 Dose: 150 mls/hr Ceftriaxone Sodium 2 gm/ (Dextrose/Water) 100 mls @ 100 mls/hr IV Q24H [facility] Last Admin: 06/28/17 11:28 Dose: 100 mls/hr Azithromycin 500 mg/ Sodium (Chloride) 250 mls @ 250 mls/hr IV Q24H [facility] Azithromycin 500 mg/ Sodium (Chloride) 250 mls @ 250 mls/hr IV Q24H [facility] Last Admin: 06/28/17 18:01 Dose: 250 mls/hr Magnesium Sulfate 2 gm/ Premix 50 mls @ 25 mls/hr IV ONETIME ONE Stop: 06/27/17 19:23 Last Admin: 06/27/17 18:35 Dose: Not Given Magnesium Sulfate 2 gm/ Premix 50 mls @ 25 mls/hr IV ONETIME ONE Stop: 06/27/17 20:44 Last Admin: 06/27/17 19:54 Dose: 25 mls/hr Sodium Chloride (Normal Saline) 1,000 mls @ 150 mls/hr IV ASDIRECTED [facility] Last Admin: 06/28/17 10:10 Dose: 150 mls/hr Methylprednisolone Sodium Succinate (Solu-Medrol) 125 mg IVPUSH ONETIME ONE Stop: 06/27/17 10:22 Last Admin: 06/27/17 10:28 Dose: 125 mg Methylprednisolone Sodium Succinate (Solu-Medrol) 125 mg IVPUSH Q8H [facility] Last Admin: 06/29/17 03:28 Dose: 125 mg Omeprazole (Omeprazole) 20 mg PO DAILY@1700 [facility] Pneumococcal Polyvalent Vaccine (Pneumovax 23) 0.5 ml IM .ONCE ONE Stop: 06/27/17 15:28 Potassium Chloride (Klor-Con M20) 40 meq PO BID [facility] Stop: 06/29/17 09:01 Last Admin: 06/29/17 11:52 Dose: 40 meq - Exam Quality Assessment: Supplemental Oxygen, DVT Prophylaxis General: Alert, Oriented, Cooperative, No Acute Distress HEENT: Pupils Equal, Pupils Reactive, EOMI Neck: Trachea Midline, No JVD Lungs: Normal Respiratory Effort, Decreased Breath Sounds Cardiovascular: Regular Rate, Regular Rhythm GI/Abdominal Exam: Normal Bowel Sounds, Soft, Non-Tender, No Organomegaly, No Distention (Male) Exam: Deferred Extremities: Normal Inspection, Normal Capillary Refill Skin: Warm Neurological: No New Focal Deficit Psy/Mental Status: Alert, Normal Affect, Normal Mood - Problem List & Annotations (1) Anxiety SNOMED Code(s): 97173656 Code(s): F41.9 - ANXIETY DISORDER, UNSPECIFIED Status: Acute Current Visit: Yes (2) Alcohol abuse SNOMED Code(s): 02446605 Code(s): F10.10 - ALCOHOL ABUSE, UNCOMPLICATED Status: Acute Current Visit: Yes (3) Hypertension SNOMED Code(s): 63510670 Code(s): I10 - ESSENTIAL (PRIMARY) HYPERTENSION Status: Acute Current Visit: Yes (4) GERD (gastroesophageal reflux disease) SNOMED Code(s): 648863960 Code(s): K21.9 - GASTRO-ESOPHAGEAL REFLUX DISEASE WITHOUT ESOPHAGITIS Status: Acute Current Visit: Yes (5) Asthma SNOMED Code(s): 215672222 Code(s): J45.909 - UNSPECIFIED ASTHMA, UNCOMPLICATED Status: Acute Current Visit: No Qualifiers: Asthma severity: moderate Asthma persistence: unspecified Asthma complication type: with acute exacerbation Qualified Code(s): J45.901 - Unspecified asthma with (acute) exacerbation (6) Hypoxia SNOMED Code(s): 335213803 Code(s): R09.02 - HYPOXEMIA Status: Acute Current Visit: No (7) Pneumonia SNOMED Code(s): 596822545 Code(s): J18.9 - PNEUMONIA, UNSPECIFIED ORGANISM Status: Acute Current Visit: No Qualifiers: Pneumonia type: due to unspecified organism Laterality: bilateral Lung location: unspecified part of lung Qualified Code(s): J18.9 - Pneumonia, unspecified organism - Problem List Review Problem List Initiated/Reviewed/Updated: Yes - My Orders Last 24 Hours: My Active Orders 06/28/17 13:56 CARLOS Hose [Antiembolic Hose] [OM.PC] Routine 06/29/17 09:00 CXR [Chest 2V] [CR] Routine 06/29/17 10:00 methylPREDNISolone Sod Succ [Solu-MEDROL] 80 mg IVPUSH Q12H 06/29/17 12:00 cefTRIAXone [Rocephin] 2 gm Dextrose 5% in Water 100 ml IV Q24H 06/29/17 17:00 Azithromycin [Zithromax] 250 mg PO Q24H 06/30/17 05:00 BMP [BASIC METABOLIC PANEL,BMP] [CHEM] DAILY CBC WITH AUTO DIFF [HEME] DAILY CRP [C-REACTIVE PROTEIN] [CHEM] DAILY LACTIC ACID [CHEM] DAILY LIPID PANEL [CHEM] Routine MAGNESIUM [CHEM] DAILY 06/30/17 10:00 CXR [Chest 2V] [CR] Routine 07/01/17 05:00 BMP [BASIC METABOLIC PANEL,BMP] [CHEM] DAILY CBC WITH AUTO DIFF [HEME] DAILY CRP [C-REACTIVE PROTEIN] [CHEM] DAILY LACTIC ACID [CHEM] DAILY MAGNESIUM [CHEM] DAILY - Plan Plan:: Impression: CAP with hypoxia History of Asthma History of chronic ethanol abuse History of anxiety Hypertension Plan: Wean O2 as tolerated. Droplet isolation Infectious work up Empiric ATB for CAP Nebs scheduled/prn CIWA ETOH protocol SZ precaution Aspiration precaution DVT/GI prophylaxis DC expected off O2, if needed will provide prescription; will need prednisone taper; anticipated DC 06/30/17. This has been discussed with the patient after the assessment today. he will need a repeat CXR in 2 weeks as well as a PCP appt in 2 weeks.
[2017-06-29] MEDS ORDERED: Azithromycin 250 MG Tab PO SCH (17:00)
[2017-06-29] MEDS: Diltiazem 180 MG Cap.CD PO SCH (17:05)
[2017-06-29] MEDS: Pantoprazole 40 MG Tab.CR PO SCH (17:05)
[2017-06-29] MEDS ORDERED: Codeine/guaiFENesin 100-10 MG/5 ML Syrup 5 ML Cup PO PRN (21:18)
[2017-06-29] MEDS: Temazepam 15 MG Cap PO PRN (21:32)
[2017-06-30] MEDS: Albuterol/Ipratropium 3.0-0.5 MG/3 ML Neb Soln NEB SCH ×2 (06:26→09:00)
--- NOTE | 2017-06-30 06:43 | PCM.DCSUM1 ---
Discharge Summary - Hospital Course HPI Initial Comments: The patient is a 62 year old male who was seen at the walk in clinic for cough with associated yellowish sputum. He experienced shortness of breath as well as fever with chills for several days. The patient was sent to the ED after being evaluated by a healthcare provider at the walk in clinic. Chest X ray shows bilateral infiltrates. He is hypoxic on room air at 88%. Currently he is on NC at 95%. He has a history of asthma, and denies tobacco. He however drinks 6-8 beers nightly. - Discharge Data Discharge Date: 06/30/17 (Admit Date: 06/27/17) Discharge Disposition: Home, Self-Care 01 Condition: Good - Discharge Diagnosis/Problem(s) (1) Alcohol abuse SNOMED Code(s): 33030019 ICD Code: F10.10 - ALCOHOL ABUSE, UNCOMPLICATED Status: Chronic Priority : Medium Current Visit: No (2) Anxiety SNOMED Code(s): 99170514 ICD Code: F41.9 - ANXIETY DISORDER, UNSPECIFIED Status: Chronic Priority : Medium Current Visit: No (3) GERD (gastroesophageal reflux disease) SNOMED Code(s): 268010954 ICD Code: K21.9 - GASTRO-ESOPHAGEAL REFLUX DISEASE WITHOUT ESOPHAGITIS Status: Chronic Priority: Medium Current Visit: No Qualifiers: Esophagitis presence: esophagitis presence not specified Qualified Code(s) : K21.9 - Gastro-esophageal reflux disease without esophagitis (4) Hypertension SNOMED Code(s): 16332950 ICD Code: I10 - ESSENTIAL (PRIMARY) HYPERTENSION Status: Chronic Priority : Medium Current Visit: No Qualifiers: Hypertension type: unspecified Qualified Code(s): I10 - Essential (primary ) hypertension (5) Asthma SNOMED Code(s): 119859212 ICD Code: J45.909 - UNSPECIFIED ASTHMA, UNCOMPLICATED Status: Chronic Priority: Medium Current Visit: No Qualifiers: Asthma severity: moderate Asthma persistence: unspecified Asthma complication type: with acute exacerbation Qualified Code(s): J45.901 - Unspecified asthma with (acute) exacerbation (6) Hypoxia SNOMED Code(s): 709690435 ICD Code: R09.02 - HYPOXEMIA Status: Acute Priority: Medium Current Visit: Yes (7) Pneumonia SNOMED Code(s): 744281816 ICD Code: J18.9 - PNEUMONIA, UNSPECIFIED ORGANISM Status: Acute Priority : High Current Visit: Yes Qualifiers: Pneumonia type: due to unspecified organism Laterality: bilateral Lung location: unspecified part of lung Qualified Code(s): J18.9 - Pneumonia, unspecified organism (8) Hypokalemia SNOMED Code(s): 88112245 ICD Code: E87.6 - HYPOKALEMIA Status: Resolved Priority: High Current Visit: Yes (9) Hypomagnesemia SNOMED Code(s): 171596473 ICD Code: E83.42 - HYPOMAGNESEMIA Status: Resolved Priority: High Current Visit: Yes - Patient Summary/Data Labs Pending at D/C: Viral respiratory panel Strep Pneumo Recommended Follow-up Testing/Procedures: Recommend following up with Primary care provider within 10-14 days. Recommend follow-up chest x-ray at that appointment. May return to light duty work on 07/02/17 Hospital Course: Impression: CAP with hypoxia History of Asthma History of chronic ethanol abuse History of anxiety Hypertension Plan: Wean O2 as tolerated. Droplet isolation Infectious work up Empiric ATB for CAP Nebs scheduled/prn CIWA ETOH protocol SZ precaution Aspiration precaution DVT/GI prophylaxis Overall Hector did quite well. There was no leukocytosis on admission, however his WBC eventually elevated slightly- likely due to steroid. This has been trending downward the last few days. CRP has been trending downward as well. He was weaned off of O2 yesterday. He did receive Rocephin while in our care. Sputum culture was negative. He has been ambulating well. Strep pneumo and viral respiratory panel are still pending. His magnesium and potassium were low and were supplemented. He does reportedly drink daily and CIWAAs have been 0-1 while in our care. We are recommending he follow-up with his PCP in 10-14 days, sooner if needed. We are also recommending a follow-up chest X-ray at that time. He will be discharged home today on medrol dose pack and a 5 day azithromycin course. He already has an albuterol inhaler at home. He was sent home with a note to return to work on 07/02/17 on light duty. - Patient Instructions Diet: Heart Healthy Diet Activity: As Tolerated Driving: Do Not Drive (today) Showering/Bathing: May Shower Notify Provider of: Fever, Increased Pain, Nausea and/or Vomiting (Worsening shortness of breath ) - Discharge Plan Prescriptions/Med Rec: Azithromycin [Zithromax] 250 mg PO DAILY #5 tab methylPREDNISolone [Medrol] 4 mg PO ASDIRECTED #1 dosepk Home Medications: Home Meds Albuterol [Ventolin HFA] 2 puff INH Q4H PRN 06/27/17 [History] Diltiazem [Tiazac] 180 mg PO BEDTIME 06/27/17 [History] FLUoxetine [PROzac] 80 mg PO DAILY 06/27/17 [History] Fluticasone/Salmeterol [Advair 250-50] 1 puff INH BID 06/27/17 [History] Metoprolol Succinate [Toprol XL 50mg] 50 mg PO DAILY 06/27/17 [History] Omeprazole [priLOSEC OTC] 20 mg PO BEDTIME 06/27/17 [History] Valsartan/Hydrochlorothiazide [Valsartan-Hctz 320-25 mg Tab] 1 tab PO DAILY 06/11 [History] Azithromycin [Zithromax] 250 mg PO DAILY #5 tab 06/30/17 [Rx] methylPREDNISolone [Medrol] 4 mg PO ASDIRECTED #1 dosepk 06/30/17 [Rx] Patient Handouts: Hypoxemia Forms: ED Department Discharge Referrals: Juan Tariq MD [Primary Care Provider] - - Discharge Summary/Plan Comment DC Time >30 min.: Yes (45 mins) - General Info Date of Service: 06/30/17 Admission Dx/Problem (Free Text: Admission Diagnosis/Problem Admission Diagnosis/Problem Pneumonia Subjective Update: In to see [place]. He is sitting up in the chair watching TV. He is doing very well. No concerns or complaints currently. Nursing was able to wean him off O2 and he is doing well. Respiratory therapy has no concerns. He will be discharged home today. Functional Status: Reports: Pain Controlled, Tolerating Diet, Ambulating, Urinating. Denies: New Symptoms - Review of Systems General: Reports: No Symptoms. Denies: Fever, Weakness, Fatigue, Malaise HEENT: Reports: No Symptoms Pulmonary: Reports: No Symptoms, Cough (occasional), Sputum (occasional ). Denies: Shortness of Breath, Wheezing Cardiovascular: Reports: No Symptoms. Denies: Chest Pain, Lightheadedness Gastrointestinal: Reports: No Symptoms. Denies: Abdominal Pain, Constipation, Diarrhea, Nausea, Vomiting Genitourinary: Reports: No Symptoms Musculoskeletal: Reports: No Symptoms Skin: Reports: No Symptoms Neurological: Reports: No Symptoms Psychiatric: Reports: No Symptoms - Patient Data Vitals - Most Recent: Last Vital Signs Temp 97.5 F 06/30/17 03:31 Pulse 84 06/30/17 03:31 Resp 24 H 06/30/17 03:31 BP 147/90 H 06/30/17 03:31 Pulse Ox 91 L 06/30/17 06:28 Weight - Most Recent: 241 lb 6.4 oz I&O - Last 24 hours: Intake & Output 06/29/17 06/29/17 06/30/17 14:59 22:59 06:59 Intake Total 600 1420 Output Total 300 Balance 300 1420 Lab Results - Last 24 hrs: Laboratory Results - last 24 hr 06/29/17 06/29/17 06/29/17 Range/Units 05:55 05:55 05:55 WBC (4.23-9.07) K/mm3 RBC (4.63-6.08) M/mm3 Hgb (13.7-17.5) gm/L Hct (40.1-51.0) % MCV (79.0-92.2) fl MCH (25.7-32.2) pg MCHC (32.2-35.5) g/dl RDW Std Deviation (35.1-43.9) fL Plt Count (163-337) K/mm3 MPV (9.4-12.3) fl Neut % (Auto) (34.0-67.9) % Lymph % (Auto) (21.8-53.1) % [place] % (Auto) (5.3-12.2) % Eos % (Auto) (0.8-7.0) Baso % (Auto) (0.1-1.2) % Neut # (Auto) (1.78-5.38) K/mm3 Lymph # (Auto) (1.32-3.57) K/mm3 [place] # (Auto) (0.30-0.82) K/mm3 Eos # (Auto) (0.04-0.54) K/mm3 Baso # (Auto) (0.01-0.08) K/mm3 Manual Slide Review Sodium 141 (136-145) mEq/L Potassium 3.7 (3.5-5.1) mEq/L Chloride 107 (98-107) mEq/L Carbon Dioxide 26 (21-32) mEq/L Anion Gap 11.7 (5-15) BUN 16 (7-18) mg/dL Creatinine 0.9 (0.7-1.3) mg/dL Est Cr Clr Drug Dosing 90.12 mL/min Estimated GFR (MDRD) > 60 (>60) mL/min BUN/Creatinine Ratio 17.8 (14-18) Glucose 165 H (74-106) mg/dL Hemoglobin A1c 5.40 (4.50-6.20) % Lactic Acid 1.8 (0.4-2.0) mmol/L Calcium 8.5 (8.5-10.1) mg/dL Magnesium 2.2 (1.8-2.4) mg/dl C-Reactive Protein 5.6 H* (<1.0) mg/dL Triglycerides (<150) mg/dL Cholesterol (<200) mg/dL LDL Cholesterol Direct (<100) mg/dL HDL Cholesterol (40-59) mg/dL 06/30/1718 06/30/17 Range/Units 05:48 05:48 05:48 WBC 10.70 H (4.23-9.07) K/mm3 RBC 4.52 L (4.63-6.08) M/mm3 Hgb 14.6 (13.7-17.5) gm/L Hct 43.4 (40.1-51.0) % MCV 96.0 H (79.0-92.2) fl MCH 32.3 H (25.7-32.2) pg MCHC 33.6 (32.2-35.5) g/dl RDW Std Deviation 44.8 H (35.1-43.9) fL Plt Count 309 (163-337) K/mm3 MPV 10.0 (9.4-12.3) fl Neut % (Auto) 91.5 H (34.0-67.9) % Lymph % (Auto) 4.9 L (21.8-53.1) % [place] % (Auto) 3.3 L (5.3-12.2) % Eos % (Auto) 0 L (0.8-7.0) Baso % (Auto) 0.0 L (0.1-1.2) % Neut # (Auto) 9.80 H (1.78-5.38) K/mm3 Lymph # (Auto) 0.52 L (1.32-3.57) K/mm3 [place] # (Auto) 0.35 (0.30-0.82) K/mm3 Eos # (Auto) 0.00 L (0.04-0.54) K/mm3 Baso # (Auto) 0.00 L (0.01-0.08) K/mm3 Manual Slide Review Abnormal smear Sodium 142 (136-145) mEq/L Potassium 4.0 (3.5-5.1) mEq/L Chloride 108 H (98-107) mEq/L Carbon Dioxide 26 (21-32) mEq/L Anion Gap 12.0 (5-15) BUN 18 (7-18) mg/dL Creatinine 1.0 (0.7-1.3) mg/dL Est Cr Clr Drug Dosing 81.11 mL/min Estimated GFR (MDRD) > 60 (>60) mL/min BUN/Creatinine Ratio 18.0 (14-18) Glucose 172 H (74-106) mg/dL Hemoglobin A1c (4.50-6.20) % Lactic Acid 1.8 (0.4-2.0) mmol/L Calcium 8.5 (8.5-10.1) mg/dL Magnesium 2.2 (1.8-2.4) mg/dl C-Reactive Protein 2.3 H* (<1.0) mg/dL Triglycerides 65 (<150) mg/dL Cholesterol 147 (<200) mg/dL LDL Cholesterol Direct 78 (<100) mg/dL HDL Cholesterol 47.0 (40-59) mg/dL [facility] Results - Last 24 hrs: Microbiology 06/28/17 06:36 Gram Stain - Final Sputum - Expectorated Sputum Culture - Preliminary 06/27/17 12:15 Aerobic Blood Culture - Preliminary Blood - Venous - Lab Draw NO GROWTH AFTER 2 DAYS Anaerobic Blood Culture - Preliminary NO GROWTH AFTER 2 DAYS 06/27/17 12:10 Aerobic Blood Culture - Preliminary Blood - Venous NO GROWTH AFTER 2 DAYS Anaerobic Blood Culture - Preliminary NO GROWTH AFTER 2 DAYS Med Orders - Current: Current Medications Albuterol (Proventil Neb Soln) 2.5 mg NEB Q4HRRT PRN PRN Reason: sob Last Admin: 06/27/17 16:54 Dose: 2.5 mg Albuterol/Ipratropium (Duoneb 3.0-0.5 Mg/3 Ml) 3 ml NEB QIDRT [facility] Last Admin: 06/30/17 06:26 Dose: 3 ml Azithromycin (Zithromax) 250 mg PO Q24H [facility] Last Admin: 06/29/17 17:05 Dose: 250 mg Benzonatate (Tessalon Perles) 200 mg PO TID PRN PRN Reason: Cough Diltiazem HCl (Cardizem Cd) 180 mg PO DAILY@1700 [facility] Last Admin: 06/29/17 17:05 Dose: 180 mg Fluoxetine HCl (Prozac) 40 mg PO DAILY [facility] Guaifenesin/Codeine Phosphate (Robitussin Ac) 10 ml PO Q6H PRN PRN Reason: Cough Last Admin: 06/29/17 21:34 Dose: 10 ml Ceftriaxone Sodium 2 gm/ (Dextrose/Water) 100 mls @ 100 mls/hr IV Q24H [facility] Last Admin: 06/29/17 12:33 Dose: 100 mls/hr Lorazepam (Ativan) 1 mg IVPUSH Q4H PRN PRN Reason: Anxiety Methylprednisolone Sodium Succinate (Solu-Medrol) 80 mg IVPUSH Q12H [facility] Last Admin: 06/29/17 21:33 Dose: 80 mg Metoprolol Succinate (Toprol Xl) 50 mg PO DAILY [facility] Last Admin: 06/29/17 11:52 Dose: 50 mg Mometasone Furoate/Formoterol Fumar (Dulera 200-5 Mcg) 2 puff IH BID [facility] Last Admin: 06/29/17 20:34 Dose: 2 puff Pantoprazole Sodium (Protonix) 40 mg PO DAILY@1700 [facility] Last Admin: 06/29/17 17:05 Dose: 40 mg Saccharomyces Boulardii (Florastor) 250 mg PO DAILY [facility] Last Admin: 06/29/17 11:52 Dose: 250 mg Sodium Chloride (Saline Flush) 10 ml FLUSH ASDIRECTED PRN PRN Reason: Keep Vein Open Last Admin: 06/27/17 10:26 Dose: 10 ml Temazepam (Restoril) 15 mg PO BEDTIME PRN PRN Reason: Insomnia Last Admin: 06/29/17 21:32 Dose: 15 mg Discontinued Medications Albuterol/Ipratropium (Duoneb 3.0-0.5 Mg/3 Ml) 3 ml NEB ONETIME ONE Stop: 06/27/17 10:22 Last Admin: 06/27/17 10:32 Dose: 3 ml Albuterol/Ipratropium (Duoneb 3.0-0.5 Mg/3 Ml) 3 ml NEB ONETIME ONE Stop: 06/27/17 11:41 Last Admin: 06/27/17 12:09 Dose: 3 ml Albuterol/Ipratropium (Duoneb 3.0-0.5 Mg/3 Ml) Confirm Administered Dose 3 ml .ROUTE .STK-MED ONE Stop: 06/27/17 16:49 Last Admin: 06/27/17 17:01 Dose: Not Given Azithromycin (Zithromax) 500 mg IV Q24H [facility] Cephalexin (Keflex) 500 mg PO Q12H [facility] Fluoxetine HCl (Prozac) 40 mg PO DAILY [facility] Fluoxetine HCl (Prozac) 80 mg PO DAILY [facility] Last Admin: 06/29/17 11:52 Dose: 40 mg Ceftriaxone Sodium 2 gm/ (Sodium Chloride) 100 mls @ 100 mls/hr IV ONETIME ONE Stop: 06/27/17 12:50 Last Admin: 06/27/17 15:26 Dose: Not Given Ceftriaxone Sodium 2 gm/ (Sodium Chloride) 100 mls @ 100 mls/hr IV ONETIME ONE Stop: 06/27/17 13:18 Last Admin: 06/27/17 12:38 Dose: 100 mls/hr Sodium Chloride (Normal Saline) 1,000 mls @ 150 mls/hr IV ASDIRECTED [facility] Last Admin: 06/27/17 12:36 Dose: 150 mls/hr Ceftriaxone Sodium 2 gm/ (Dextrose/Water) 100 mls @ 100 mls/hr IV Q24H [facility] Last Admin: 06/28/17 11:28 Dose: 100 mls/hr Azithromycin 500 mg/ Sodium (Chloride) 250 mls @ 250 mls/hr IV Q24H [facility] Azithromycin 500 mg/ Sodium (Chloride) 250 mls @ 250 mls/hr IV Q24H [facility] Last Admin: 06/28/17 18:01 Dose: 250 mls/hr Magnesium Sulfate 2 gm/ Premix 50 mls @ 25 mls/hr IV ONETIME ONE Stop: 06/27/17 19:23 Last Admin: 06/27/17 18:35 Dose: Not Given Magnesium Sulfate 2 gm/ Premix 50 mls @ 25 mls/hr IV ONETIME ONE Stop: 06/27/17 20:44 Last Admin: 06/27/17 19:54 Dose: 25 mls/hr Sodium Chloride (Normal Saline) 1,000 mls @ 150 mls/hr IV ASDIRECTED [facility] Last Admin: 06/28/17 10:10 Dose: 150 mls/hr Methylprednisolone Sodium Succinate (Solu-Medrol) 125 mg IVPUSH ONETIME ONE Stop: 06/27/17 10:22 Last Admin: 06/27/17 10:28 Dose: 125 mg Methylprednisolone Sodium Succinate (Solu-Medrol) 125 mg IVPUSH Q8H [facility] Last Admin: 06/29/17 03:28 Dose: 125 mg Omeprazole (Omeprazole) 20 mg PO DAILY@1700 [facility] Pneumococcal Polyvalent Vaccine (Pneumovax 23) 0.5 ml IM .ONCE ONE Stop: 06/27/17 15:28 Potassium Chloride (Klor-Con M20) 40 meq PO BID [facility] Stop: 06/29/17 09:01 Last Admin: 06/29/17 11:52 Dose: 40 meq - Exam Quality Assessment: Reports: DVT Prophylaxis General: Reports: Alert, Oriented, Cooperative, No Acute Distress HEENT: Reports: Pupils Equal, Pupils Reactive, EOMI, Mucous Membr. Moist/[place] Lungs: Reports: Clear to Auscultation, Normal Respiratory Effort, Decreased Breath Sounds Cardiovascular: Reports: Regular Rate, Regular Rhythm GI/Abdominal Exam: Normal Bowel Sounds, Soft, Non-Tender, No Organomegaly, No Distention, No Abnormal Bruit, No Mass, Pelvis Stable (Male) Exam: Deferred Rectal (Males) Exam: Deferred Back Exam: Reports: Normal Inspection, Full Range of Motion Extremities: Normal Inspection, Normal Range of Motion, Non-Tender, No Pedal Edema, Normal Capillary Refill Skin: Reports: Warm, Dry, Intact Wound/Incisions: Reports: Healing Well Neurological: Reports: No New Focal Deficit Psy/Mental Status: Reports: Alert, Normal Affect, Normal Mood
--- NOTE | 2017-06-30 08:18 | CR ---
Chest: Frontal view of the chest was obtained. Comparison: No prior chest x-ray. Increased lung markings are noted. Heart size at the upper limits of normal. Tortuous thoracic aorta is seen. Bony structures are unremarkable for the patient's age. Diaphragms are flattened on the lateral view compatible with emphysematous change. Impression: 1. Patchy increased lung markings on both sides of the chest. Please correlate if patient has symptoms of bronchitis. 2. Emphysematous change. Diagnostic code #3 I agree with preliminary report from [facility], finalized at 06/29/17, 11:02 AM Central Time
[2017-06-30] MEDS: Formoterol/Mometasone 200-5 MCG 8.8 GM Inhaler IH SCH (09:00)
[2017-06-30] MEDS ORDERED: FLUoxetine 20 MG Cap PO SCH (09:00)
[2017-06-30] MEDS: Saccharomyces Boulardii (Probiotic) 250 MG Cap PO SCH (09:11)
[2017-06-30] MEDS: Metoprolol Succinate 50 MG Tab.ER PO SCH (09:12)
[2017-06-30] MEDS: methylPREDNISolone Sodium Succinate 40 MG/1 ML SDV IVPUSH SCH (09:13)
== END 2017-06-30 10:45 | disposition home or self-care (01) | DRG 139 ==
LOC: JD.ED 09:57 → MERGE 09:57 → JD.ED 11:00 → JD.MS 14:16
PROVIDERS: ADMIT Internal Medicine Cardiovascular Disease; ATTEND Internal Medicine Cardiovascular Disease
PROC: 3E0234Z Introduction of Serum, Toxoid and Vaccine into Muscle, Percutaneous Approach (ICD-10-PCS; principal; 2017-06-27)
DX: J18.9 Pneumonia, unspecified organism (principal); E83.42 Hypomagnesemia; J45.901 Unspecified asthma with (acute) exacerbation; R09.02 Hypoxemia; F10.10 Alcohol abuse, uncomplicated; F41.9 Anxiety disorder, unspecified; K21.9 Gastro-esophageal reflux disease without esophagitis; I10 Essential (primary) hypertension; E87.6 Hypokalemia; D72.829 Elevated white blood cell count, unspecified; Z79.899 Other long term (current) drug therapy; Z23 Encounter for immunization; T38.0X5A Adverse effect of glucocorticoids and synthetic analogues, initial encounter
CPT/HCPCS: 36415; 71046; 71046-26; 80048; 80053; 80061; 83036; 83605; 83735; 85025; 86140; 86738; 87040; 87070; 87077; 87205; 87486; 87581; 87633; 87798; 87899; 90732; 94640; 94664; 94761; 96361; 96365; 96375; 99284; 99285-25; A9270-GY; G0009; J0456; J0696; J2920; J2930; J3475; J7030; J7040; J7050; J7060

== ENCOUNTER 2017-07-14 05:25 | Inpatient (IN) | payer BC ==
[2017-07-14] MEDS ORDERED: Albuterol/Ipratropium 3.0-0.5 MG/3 ML Neb Soln NEB ONE (05:49)
[2017-07-14] MEDS ORDERED: Levofloxacin/Dextrose 5%-Water 750 MG in Premix Bag 1 BAG IV ONE (05:50)
[2017-07-14] MEDS ORDERED: Acetaminophen 325 MG Tab PO ONE (05:51)
--- NOTE | 2017-07-14 05:55 | EDM.PDOC ---
ED HPI GENERAL MEDICAL PROBLEM - General Chief Complaint: Respiratory Problem Stated Complaint: SOB Time Seen by Provider: 07/14/17 05:45 Source of Information: Reports: Patient History Limitations: Reports: No Limitations - History of Present Illness INITIAL COMMENTS - FREE TEXT/NARRATIVE: The patient presents with a cough, shortness of breath, fever, chills and low oxygen saturations. The patient was just discharged here on June 30 with pneumonia. He had been doing okay until a couple days ago when he started coughing. He has no chest pain. He has a history of asthma. He does not smoke. He had a pulse oximeter at home and it was around 78%. When he arrived here, his oxygen saturations were 80%. Onset: Gradual Duration: Day(s): (2) Severity: Moderate Improves with: Reports: None Worsens with: Reports: None Associated Symptoms: Reports: Cough, cough w sputum, Fever/Chills, Shortness of Breath. Denies: Chest Pain, Headaches, Nausea/Vomiting - Related Data Allergies Allergy/AdvReac Type Severity Reaction Status Date / Time No Known Allergies Allergy Verified 07/14/17 05:37 Home Meds: Home Meds Albuterol [Ventolin HFA] 2 puff INH Q4H PRN 06/27/17 [History] Diltiazem [Tiazac] 180 mg PO BEDTIME 06/27/17 [History] FLUoxetine [PROzac] 40 mg PO DAILY 06/27/17 [History] Fluticasone/Salmeterol [Advair 250-50] 1 puff INH BID 06/27/17 [History] Metoprolol Succinate [Toprol XL 50mg] 50 mg PO DAILY 06/27/17 [History] Omeprazole [priLOSEC OTC] 20 mg PO BEDTIME 06/27/17 [History] Valsartan/Hydrochlorothiazide [Valsartan-Hctz 320-25 mg Tab] 1 tab PO DAILY 06/11 [History] Past Medical History HEENT History: Reports: Hard of Hearing, Other (See Below) Other HEENT History: c/o ringing in ears and hearing loss bilaterally Cardiovascular History: Reports: Hypertension Gastrointestinal History: Reports: GERD Musculoskeletal History: Reports: None Psychiatric History: Reports: Anxiety - Past Surgical History HEENT Surgical History: Reports: None Musculoskeletal Surgical History: Reports: Other (See Below) Other Musculoskeletal Surgeries/Procedures:: right thumb amputation Social & Family History - Family History Family Medical History: Noncontributory - Tobacco Use Smoking Status *Q: Never Smoker - Caffeine Use Caffeine Use: Reports: Coffee Other Caffeine Use: drinks diet coke - Alcohol Use Days Per Week of Alcohol Use: 7 Number of Drinks Per Day: 5 Total Drinks Per Week: 35 - Recreational Drug Use Recreational Drug Use: No ED ROS GENERAL - Review of Systems Review Of Systems: See Below Constitutional: Reports: Fever, Chills, Malaise, Weakness, Fatigue HEENT: Reports: No Symptoms Respiratory: Reports: Shortness of Breath, Cough, Sputum Cardiovascular: Reports: No Symptoms Endocrine: Reports: No Symptoms GI/Abdominal: Reports: No Symptoms : Reports: No Symptoms Musculoskeletal: Reports: No Symptoms ED EXAM, GENERAL - Physical Exam Exam: See Below Exam Limited By: No Limitations General Appearance: Alert, No Apparent Distress Ears: Normal External Exam Nose: Normal Inspection Head: Atraumatic, Normocephalic Neck: Normal Inspection Respiratory/Chest: No Respiratory Distress, Decreased Breath Sounds Cardiovascular: Regular Rate, Rhythm, No Edema, No Murmur GI/Abdominal: Soft, Non-Tender, No Organomegaly, No Mass Back Exam: Normal Inspection Extremities: Normal Inspection Course - Vital Signs Last Recorded V/S: Last Vital Signs Temp 100.5 F 07/14/17 05:32 Pulse 114 H 07/14/17 06:37 Resp 26 H 07/14/17 06:37 BP 161/93 H 07/14/17 05:32 Pulse Ox 91 L 07/14/17 06:37 - Orders/Labs/Meds Orders: Active Orders 24 hr Category Date Time Status Cardiac Monitoring [RC] . DIRECTED Care 07/14/17 05:48 Active Oxygen Therapy [RC] PRN Care 07/14/17 05:48 Active Peripheral IV Care [RC] . DIRECTED Care 07/14/17 05:49 Active RT Aerosol Therapy [RC] ASDIRECTED Care 07/14/17 05:49 Active Ang Chest [CT] Stat Exams 07/14/17 06:38 Ordered Chest 2V [CR] Stat Exams 07/14/17 05:49 Taken CULTURE BLOOD [BC] Stat Lab 07/14/17 06:15 Received CULTURE BLOOD [BC] Stat Lab 07/14/17 06:25 Received Sodium Chloride 0.9% [Normal Saline] 1,000 ml Med 07/14/17 06:00 Active IV ASDIRECTED Sodium Chloride 0.9% [Saline Flush] Med 07/14/17 05:48 Active 10 ml FLUSH ASDIRECTED PRN Blood Culture x2 Reflex Set [OM.PC] Stat Ot 07/14/17 05:49 Ordered Peripheral IV Insertion Adult [OM.PC] Stat Ot 07/14/17 05:48 Ordered Medication Orders Sodium Chloride (Normal Saline) 1,000 mls @ 125 mls/hr IV ASDIRECTED THERESA Last Admin: 07/14/17 06:11 Dose: 125 mls/hr Sodium Chloride (Saline Flush) 10 ml FLUSH ASDIRECTED PRN PRN Reason: Keep Vein Open Last Admin: 07/14/17 06:11 Dose: 10 ml Labs: Laboratory Tests 07/14/17 07/14/17 07/14/17 Range/Units 05:39 05:39 05:39 WBC 15.70 H (4.23-9.07) K/mm3 RBC 4.98 (4.63-6.08) M/mm3 Hgb 16.0 (13.7-17.5) gm/L Hct 45.7 (40.1-51.0) % MCV 91.8 (79.0-92.2) fl MCH 32.1 (25.7-32.2) pg MCHC 35.0 (32.2-35.5) g/dl RDW Std Deviation 41.9 (35.1-43.9) fL Plt Count 332 (163-337) K/mm3 MPV 9.9 (9.4-12.3) fl Neut % (Auto) 81.1 H (34.0-67.9) % Lymph % (Auto) 12.2 L (21.8-53.1) % [place] % (Auto) 5.9 (5.3-12.2) % Eos % (Auto) 0.4 L (0.8-7.0) Baso % (Auto) 0.1 (0.1-1.2) % Neut # (Auto) 12.74 H (1.78-5.38) K/mm3 Lymph # (Auto) 1.92 (1.32-3.57) K/mm3 [place] # (Auto) 0.93 H (0.30-0.82) K/mm3 Eos # (Auto) 0.06 (0.04-0.54) K/mm3 Baso # (Auto) 0.01 (0.01-0.08) K/mm3 Sodium 136 (136-145) mEq/L Potassium 3.7 (3.5-5.1) mEq/L Chloride 98 (98-107) mEq/L Carbon Dioxide 27 (21-32) mEq/L Anion Gap 14.7 (5-15) BUN 16 (7-18) mg/dL Creatinine 1.3 (0.7-1.3) mg/dL Est Cr Clr Drug Dosing 62.39 mL/min Estimated GFR (MDRD) 56 (>60) mL/min BUN/Creatinine Ratio 12.3 L (14-18) Glucose 112 H (74-106) mg/dL Lactic Acid 1.4 (0.4-2.0) mmol/L Calcium 8.5 (8.5-10.1) mg/dL Total Bilirubin 0.8 (0.2-1.0) mg/dL AST 22 (15-37) U/L ALT 36 (16-63) U/L Alkaline Phosphatase 101 (46-116) U/L Total Protein 6.8 (6.4-8.2) g/dl Albumin 2.9 L (3.4-5.0) g/dl Globulin 3.9 gm/dL Albumin/Globulin Ratio 0.7 L (1-2) Meds: Medications Generic Name Dose Route Start Last Admin Trade Name Freq PRN Reason Stop Dose Admin Sodium Chloride 1,000 mls @ 125 mls/hr 07/14/17 06:00 07/14/17 06:11 Normal Saline IV 125 mls/hr ASDIRECTED THERESA Administration Sodium Chloride 10 ml 07/14/17 05:48 07/14/17 06:11 Saline Flush FLUSH 10 ml ASDIRECTED PRN Administration Keep Vein Open Discontinued Medications Generic Name Dose Route Start Last Admin Trade Name Freq PRN Reason Stop Dose Admin Acetaminophen 975 mg 07/14/17 05:51 07/14/17 06:11 Tylenol PO 07/14/17 05:52 975 mg NOW ONE Administration Albuterol/Ipratropium 3 ml 07/14/17 05:49 07/14/17 06:03 Duoneb 3.0-0.5 Mg/3 Ml NEB 07/14/17 05:50 3 ml ONETIME ONE Administration Levofloxacin/Dextrose 750 mg/ 150 mls @ 100 mls/hr 07/14/17 05:50 07/14/17 06 :33 Premix IV 07/14/17 07:19 100 mls/hr ONETIME ONE Administration - Re-Assessments/Exams Free Text/Narrative Re-Assessment/Exam: 07/14/17 05:54 I ordered oxygen, IV NS 125mL/hr, labs, CXR, blood cultures, duoneb and levaquin 750mg IV. 07/14/17 07:05 His WBC is elevated at 15.7. His CMP looks good. His lactic acid was normal at 1.4. His CXR looks like the last time when he was admitted. I will get a CT of his chest. 07/14/17 07:25 CT is delayed. I feel he needs to be admitted. I called Dr Styles and he agreed to the admission. Departure - Departure Time of Disposition: 07:25 Disposition: Admitted As Inpatient 68 Condition: Fair Clinical Impression: Hypoxia Pneumonia Qualifiers: Pneumonia type: due to unspecified organism Laterality: bilateral Lung location : unspecified part of lung Qualified Code(s): J18.9 - Pneumonia, unspecified organism Asthma Qualifiers: Asthma severity: moderate Asthma persistence: unspecified Asthma complication type: with acute exacerbation Qualified Code(s): J45.901 - Unspecified asthma with (acute) exacerbation - Discharge Information Referrals: Cr Campos Jr, MD [Primary Care Provider] - Forms: ED Department Discharge - My Orders Last 24 Hours: My Active Orders 07/14/17 05:48 Cardiac Monitoring [RC] . DIRECTED Oxygen Therapy [RC] PRN Sodium Chloride 0.9% [Saline Flush] 10 ml FLUSH ASDIRECTED PRN Peripheral IV Insertion Adult [OM.PC] Stat 07/14/17 05:49 Peripheral IV Care [RC] . DIRECTED RT Aerosol Therapy [RC] ASDIRECTED Chest 2V [CR] Stat Blood Culture x2 Reflex Set [OM.PC] Stat 07/14/17 06:00 Sodium Chloride 0.9% [Normal Saline] 1,000 ml IV ASDIRECTED 07/14/17 06:15 CULTURE BLOOD [BC] Stat 07/14/17 06:25 CULTURE BLOOD [BC] Stat 07/14/17 06:38 Ang Chest [CT] Stat - Assessment/Plan Last 24 Hours: My Active Orders 07/14/17 05:48 Cardiac Monitoring [RC] . DIRECTED Oxygen Therapy [RC] PRN Sodium Chloride 0.9% [Saline Flush] 10 ml FLUSH ASDIRECTED PRN Peripheral IV Insertion Adult [OM.PC] Stat 07/14/17 05:49 Peripheral IV Care [RC] . DIRECTED RT Aerosol Therapy [RC] ASDIRECTED Chest 2V [CR] Stat Blood Culture x2 Reflex Set [OM.PC] Stat 07/14/17 06:00 Sodium Chloride 0.9% [Normal Saline] 1,000 ml IV ASDIRECTED 07/14/17 06:15 CULTURE BLOOD [BC] Stat 07/14/17 06:25 CULTURE BLOOD [BC] Stat 07/14/17 06:38 Ang Chest [CT] Stat
[2017-07-14] MEDS ORDERED: Sodium Chloride 0.9% 1,000 ML IV SCH ×2 (06:00→11:45)
[2017-07-14] MEDS: Sodium Chloride 0.9% 10 ML Syringe FLUSH PRN ×2 (06:11→08:02)
[2017-07-14] MEDS ORDERED: Iopamidol 755 Mg/ML 100 ML Bottle IVPUSH ONE (07:39)
[2017-07-14] MEDS ORDERED: Iopamidol 755 MG/ML 50 ML Bottle IVPUSH ONE (07:39)
[2017-07-14] MEDS ORDERED: Sodium Chloride 0.9% 250 ML IV SCH (07:45)
--- NOTE | 2017-07-14 07:52 | PCM.HP ---
H&P History of Present Illness - General Date of Service: 07/14/17 Admit Problem/Dx: pneumonia Source of Information: Patient, Old Records, Provider, RN, RN Notes Reviewed History Limitations: Reports: No Limitations - History of Present Illness Initial Comments - Free Text/Narative: Hector Leslie is a 62 yo male who presents to our ED today (07/14/17) with cough, fever, SOB, chills, and low oxygen saturations. He was recently hospitalized 06/27-06/30 with pneumonia. At that time he was treated with Rocephin, azithromycin, and IV steroids. His sputum culture was negative and he was sent home with a medrol Dosepak and 5 day azithromycin course. He had been doing ok and the began to cough a few days prior. He does have a history of asthma. Denies chest pain and does not smoke. Oxygen saturations at home were around 78 % and upon arrival they were 80%. He does report he did follow-up with his PCP after his last discharge and a CRX was obtained however nothing was changed with his plan of care. In the ED temperature 100.5. Pulse 114. Respirations 26. Blood pressure 161/ 93. Pulse ox 91%. Labs are obtained: CBC is elevated at 15.7. Hemoglobin 16.0. Hematocrit 45.7. He is normocytic. Platelets 332,000. Neutrophils are elevated at 81.1%. Sodium 136. Potassium 3.7. Chloride 98. Carbon dioxide 27. Anion gap is on the high end of normal at 14.7. BUN is 16. Creatinine 1.3. EGFR is 56. Glucose 112. Lactic acid 1.4. Calcium 8.5. Bilirubin 0.8. Liver enzymes looked good with AST at 22, ALT at 36. Alkaline phosphatase 101. Total protein 6.8. Albumin is low at 2.9. He was started onIV [id number] mg and Levaquin. He was also given 975 mg Tylenol and a DuoNeb. Blood cultures were obtained. His chest x-ray was obtained and looked very similar to last time he was admitted. This is pending radiologist read. ChestCTA was obtained and interpreted by Dr. Gil as "1. Patchy areas of parenchymal density throughout both sides of the chest. Findings most likely represent multifocal pneumonia. 2. No findings of pulmonary embolism. 3. Moderately large hiatal hernia." Sputum culture is ordered. He carries a history of: HTN, GERD, Anxiety. He was never a smoker. He is subsequently admitted to the medical floor on telemetry. He is a full code. His PCP is Dr. Campos. Lower Back Pain Score (Numeric/FACES): 2 - Related Data Allergies/Adverse Reactions: Allergies Allergy/AdvReac Type Severity Reaction Status Date / Time No Known Allergies Allergy Verified 07/14/17 09:02 Home Medications: Home Meds Albuterol [Ventolin HFA] 2 puff INH Q4H PRN 06/27/17 [History] Diltiazem [Tiazac] 180 mg PO BEDTIME 06/27/17 [History] FLUoxetine [PROzac] 80 mg PO DAILY 06/27/17 [History] Fluticasone/Salmeterol [Advair 250-50] 1 puff INH BID 06/27/17 [History] Metoprolol Succinate [Toprol XL 50mg] 50 mg PO DAILY 06/27/17 [History] Omeprazole [priLOSEC OTC] 20 mg PO BEDTIME 06/27/17 [History] Valsartan/Hydrochlorothiazide [Valsartan-Hctz 320-25 mg Tab] 1 tab PO DAILY 06/11 [History] Past Medical History HEENT History: Reports: Hard of Hearing, Other (See Below) Other HEENT History: c/o ringing in ears and hearing loss bilaterally Cardiovascular History: Reports: Hypertension Gastrointestinal History: Reports: GERD Musculoskeletal History: Reports: None Psychiatric History: Reports: Anxiety - Past Surgical History HEENT Surgical History: Reports: None Musculoskeletal Surgical History: Reports: Other (See Below) Other Musculoskeletal Surgeries/Procedures:: right thumb amputation Social & Family History - Family History Family Medical History: Noncontributory - Tobacco Use Smoking Status *Q: Never Smoker - Caffeine Use Caffeine Use: Reports: Coffee Other Caffeine Use: drinks diet coke - Alcohol Use Days Per Week of Alcohol Use: 7 Number of Drinks Per Day: 5 Total Drinks Per Week: 35 - Recreational Drug Use Recreational Drug Use: No H&P Review of Systems - Review of Systems: Review Of Systems: See Below General: Reports: Fever, Chills, Malaise, Weakness, Fatigue. Denies: Decreased Appetite HEENT: Reports: No Symptoms. Denies: Ear Pain, Eye Pain, Post Nasal Drip, Visual Changes Pulmonary: Reports: Shortness of Breath, Cough, Sputum. Denies: Wheezing, Pleuritic Chest Pain Cardiovascular: Reports: Dyspnea on Exertion. Denies: Chest Pain, Palpitations , Orthopnea, Edema, Lightheadedness Gastrointestinal: Reports: No Symptoms. Denies: Abdominal Pain, Constipation, Diarrhea, Nausea, Vomiting Genitourinary: Reports: No Symptoms Musculoskeletal: Reports: Back Pain (from coughing ). Denies: Joint Pain Skin: Reports: No Symptoms Psychiatric: Reports: No Symptoms Neurological: Reports: No Symptoms Hematologic/Lymphatic: Reports: No Symptoms Immunologic: Reports: No Symptoms Exam - Exam Exam: See Below - Vital Signs Vital Signs: Last Vital Signs Temp 100.5 F 07/14/17 05:32 Pulse 114 H 07/14/17 06:37 Resp 26 H 07/14/17 06:37 BP 161/93 H 07/14/17 05:32 Pulse Ox 91 L 07/14/17 06:37 Weight: 231 lb - Exam Quality Assessment: Supplemental Oxygen General: Alert, Oriented, Cooperative. No: Mild Distress HEENT: Conjunctiva Clear, EACs Clear, EOMI, Hearing Intact, Mucosa Moist & [place] , Nares Patent, Posterior Pharynx Clear, PERRLA Neck: Supple, Trachea Midline, Full Range of Motion. No: JVD Lungs: Clear to Auscultation, Normal Respiratory Effort, Decreased Breath Sounds. No: Crackles, Rhonchi, Wheezing Cardiovascular: Regular Rate, Regular Rhythm GI/Abdominal Exam: Normal Bowel Sounds, Soft, Non-Tender, No Organomegaly, No Distention, No Abnormal Bruit, No Mass, Pelvis Stable (Male) Exam: Deferred Rectal (Males) Exam: Deferred Back Exam: Normal Inspection, Full Range of Motion Extremities: Normal Inspection, Normal Range of Motion, Non-Tender, Normal Capillary Refill, Pedal Edema (1+) Peripheral Pulses: 1+: Posterior Tibial (L), Posterior Tibial (R), Dorsalis Pedis (L), Dorsalis Pedis (R), 2+: Radial (L), Radial (R) Skin: Warm, Dry, Intact Neurological: Cranial Nerves Intact (grossly ) Neuro Extensive - Mental Status: Alert, Oriented x3, Normal Mood/Affect, Normal Cognition, Memory Intact Neuro Extensive - Motor, Sensory, Reflexes: CN II-XII Intact (Grossly ) Psychiatric: Alert, Normal Affect, Normal Mood - Patient Data Lab Results Last 24 hrs: Laboratory Results - last 24 hr 07/14/17 07/14/17 07/14/17 Range/Units 05:39 05:39 05:39 WBC 15.70 H (4.23-9.07) K/mm3 RBC 4.98 (4.63-6.08) M/mm3 Hgb 16.0 (13.7-17.5) gm/L Hct 45.7 (40.1-51.0) % MCV 91.8 (79.0-92.2) fl MCH 32.1 (25.7-32.2) pg MCHC 35.0 (32.2-35.5) g/dl RDW Std Deviation 41.9 (35.1-43.9) fL Plt Count 332 (163-337) K/mm3 MPV 9.9 (9.4-12.3) fl Neut % (Auto) 81.1 H (34.0-67.9) % Lymph % (Auto) 12.2 L (21.8-53.1) % [place] % (Auto) 5.9 (5.3-12.2) % Eos % (Auto) 0.4 L (0.8-7.0) Baso % (Auto) 0.1 (0.1-1.2) % Neut # (Auto) 12.74 H (1.78-5.38) K/mm3 Lymph # (Auto) 1.92 (1.32-3.57) K/mm3 [place] # (Auto) 0.93 H (0.30-0.82) K/mm3 Eos # (Auto) 0.06 (0.04-0.54) K/mm3 Baso # (Auto) 0.01 (0.01-0.08) K/mm3 Sodium 136 (136-145) mEq/L Potassium 3.7 (3.5-5.1) mEq/L Chloride 98 (98-107) mEq/L Carbon Dioxide 27 (21-32) mEq/L Anion Gap 14.7 (5-15) BUN 16 (7-18) mg/dL Creatinine 1.3 (0.7-1.3) mg/dL Est Cr Clr Drug Dosing 62.39 mL/min Estimated GFR (MDRD) 56 (>60) mL/min BUN/Creatinine Ratio 12.3 L (14-18) Glucose 112 H (74-106) mg/dL Lactic Acid 1.4 (0.4-2.0) mmol/L Calcium 8.5 (8.5-10.1) mg/dL Total Bilirubin 0.8 (0.2-1.0) mg/dL AST 22 (15-37) U/L ALT 36 (16-63) U/L Alkaline Phosphatase 101 (46-116) U/L Total Protein 6.8 (6.4-8.2) g/dl Albumin 2.9 L (3.4-5.0) g/dl Globulin 3.9 gm/dL Albumin/Globulin Ratio 0.7 L (1-2) Result Diagrams: 07/14/17 05:39 07/14/17 05:39 - Problem List (1) Hypoxia SNOMED Code(s): 433950949 ICD Code: R09.02 - HYPOXEMIA Status: Acute Priority: High Current Visit : Yes (2) Pneumonia SNOMED Code(s): 823992295 ICD Code: J18.9 - PNEUMONIA, UNSPECIFIED ORGANISM Status: Acute Priority : High Current Visit: Yes Qualifiers: Pneumonia type: due to unspecified organism Laterality: bilateral Lung location: unspecified part of lung Qualified Code(s): J18.9 - Pneumonia, unspecified organism (3) Asthma SNOMED Code(s): 830344679 ICD Code: J45.909 - UNSPECIFIED ASTHMA, UNCOMPLICATED Status: Chronic Priority: High Current Visit: Yes Qualifiers: Asthma severity: moderate Asthma persistence: unspecified Asthma complication type: with acute exacerbation Qualified Code(s): J45.901 - Unspecified asthma with (acute) exacerbation (4) Alcohol abuse SNOMED Code(s): 56687765 ICD Code: F10.10 - ALCOHOL ABUSE, UNCOMPLICATED Status: Chronic Priority : Medium Current Visit: No (5) Anxiety SNOMED Code(s): 58375908 ICD Code: F41.9 - ANXIETY DISORDER, UNSPECIFIED Status: Chronic Priority : Medium Current Visit: No (6) GERD (gastroesophageal reflux disease) SNOMED Code(s): 573250352 ICD Code: K21.9 - GASTRO-ESOPHAGEAL REFLUX DISEASE WITHOUT ESOPHAGITIS Status: Chronic Priority: Medium Current Visit: No Qualifiers: Esophagitis presence: esophagitis presence not specified Qualified Code(s) : K21.9 - Gastro-esophageal reflux disease without esophagitis (7) Hypertension SNOMED Code(s): 83410823 ICD Code: I10 - ESSENTIAL (PRIMARY) HYPERTENSION Status: Chronic Priority : Medium Current Visit: No Qualifiers: Hypertension type: unspecified Qualified Code(s): I10 - Essential (primary ) hypertension Problem List Initiated/Reviewed/Updated: Yes Orders Last 24hrs: Active Orders 24 hr Category Date Time Status Cardiac Monitoring [RC] . DIRECTED Care 07/14/17 05:48 Active Oxygen Therapy [RC] PRN Care 07/14/17 05:48 Active Peripheral IV Care [RC] . DIRECTED Care 07/14/17 05:49 Active RT Aerosol Therapy [RC] ASDIRECTED Care 07/14/17 05:49 Active Ang Chest [CT] Stat Exams 07/14/17 06:38 Ordered Chest 2V [CR] Stat Exams 07/14/17 05:49 Taken CULTURE BLOOD [BC] Stat Lab 07/14/17 06:15 Received CULTURE BLOOD [BC] Stat Lab 07/14/17 06:25 Received CULTURE SPUTUM + SMEAR [RM] Stat Lab 07/14/17 07:30 Ordered Sodium Chloride 0.9% [Normal Saline] 1,000 ml Med 07/14/17 06:00 Active IV ASDIRECTED Sodium Chloride 0.9% [Normal Saline] 250 ml Med 07/14/17 07:45 Active IV ASDIRECTED Sodium Chloride 0.9% [Saline Flush] Med 07/14/17 05:48 Active 10 ml FLUSH ASDIRECTED PRN Blood Culture x2 Reflex Set [OM.PC] Stat Oth 07/14/17 05:49 Ordered Peripheral IV Insertion Adult [OM.PC] Stat Oth 07/14/17 05:48 Ordered Medication Orders Sodium Chloride (Normal Saline) 1,000 mls @ 125 mls/hr IV ASDIRECTED THERESA Last Admin: 07/14/17 06:11 Dose: 125 mls/hr Sodium Chloride (Normal Saline) 250 mls @ 80 mls/hr IV ASDIRECTED THERESA Sodium Chloride (Saline Flush) 10 ml FLUSH ASDIRECTED PRN PRN Reason: Keep Vein Open Last Admin: 07/14/17 06:11 Dose: 10 ml Assessment/Plan Comment:: I/P: Acute: PNA -Hospitalized 06/28-06/30 for pneumonia -Sputum culture negative at that time, Negative respiratory viral panel -Discharged home on medrol dosepak and 5 day course of azithrmoycin -Reports fever, weakness, productive cough, SOB, low oxygen saturations -Oxygen saturations 78% at home and 80% in ED -CXR shows bilateral diffuse parenchymal densities -CTA on 07/14/17: 1. Patchy areas of rectal density throughout both sides of the chest. Findings most likely epresent multifocal pneumonia. 2. No findings of pulmonary embolism. 3. Moderately large hiatal hernia -Sputum culture -Strep pneumo and viral respiratory panel pending -Mycoplasma negative -CRP ordered -WBC 15.7 -Lactic acid 1.4 -Levaquin 750 mg IV given in ED - continue Q24 -Start azithromycin -IS/Acapella/RT/Duonebs -Ambulate -O2 as needed -Repeat CXR in 24-48 hours -Blood cultures pending [place] exacerbation -Acute on chronic -2/2 above -See orders above -Not wheezing - will hold off steroid for now Chronic: ETOH use -Reports 5 drinks per day 7 days a week -CIWA protocol -Ativan for seizures and seizure precautions -Last visit CIWAs were 0-1 throughout stay -Liver enzymes WNL -No need for SW/CM/Psych/LAC at this time HTN GERD Anxiety Plan: Admit to medical floor on telemetry Home medications as ordered Other orders as above Routine AM labs DVT prophylaxis: Lovenox GI prophylaxis: Home PPI PT/OT Code status: Full code; PCP: Dr. Campos
--- NOTE | 2017-07-14 08:28 | CT ---
CT chest Technique: Multiple axial sections were obtained from above the lung apices inferiorly through the lung bases. Intravenous contrast was utilized. Study has been performed as a pulmonary angiogram protocol. Comparison: No prior chest CT exam, previous chest x-ray performed earlier on same day (5:44 AM). Pulmonary arteries are fairly well-opacified. No filling defects are seen to indicate pulmonary embolism. Mediastinum and shows scattered lymph nodes which are felt to be within normal limits. No pericardial thickening is seen. Moderately large hiatal hernia is seen. Patchy areas of increased density are seen within the left upper lung as well as within both lung bases and within the lingula and right middle lobe. Bone window settings were reviewed which shows no discrete osseous abnormality. Impression: 1. Patchy areas of parenchymal density throughout both sides of the chest. Findings most likely represent multifocal pneumonia. 2. No findings of pulmonary embolism. 3. Moderately large hiatal hernia. Diagnostic code #3
[2017-07-14] MEDS ORDERED: Acetaminophen 325 MG Tab PO PRN (10:13)
[2017-07-14] MEDS ORDERED: Bisacodyl 5 MG Tab PO PRN (10:13)
[2017-07-14] MEDS ORDERED: Ondansetron 4 MG Tab.DIS PO PRN (10:13)
[2017-07-14] MEDS ORDERED: Ondansetron 4 MG/2 ML SDV IV PRN (10:13)
[2017-07-14] MEDS ORDERED: Acetaminophen/HYDROcodone 325-5 MG Tab PO PRN (10:13)
[2017-07-14] MEDS ORDERED: Docusate Sodium 100 MG Cap PO PRN (10:13)
[2017-07-14] MEDS ORDERED: Albuterol 0.083% 2.5 MG/3 ML Neb Soln NEB PRN (10:13)
[2017-07-14] MEDS ORDERED: Polyethylene Glycol 3350 Powder 17 GM Packet PO PRN (10:13)
[2017-07-14] MEDS ORDERED: Azithromycin 500 MG AdvVial IV SCH (10:15)
[2017-07-14] MEDS ORDERED: hydrALAZINE 20 MG/ML SDV IVPUSH PRN (10:18)
[2017-07-14] MEDS ORDERED: guaiFENesin/Dextromethorphan 100-10 MG/5 ML Soln 5 ML Cup PO PRN (10:18)
[2017-07-14] MEDS ORDERED: Metoprolol Tartrate 5 MG/5 ML SDV IVPUSH PRN (10:18)
[2017-07-14] MEDS ORDERED: LORazepam 2 MG/ML SDV IVPUSH PRN ×3 (10:23→10:27)
[2017-07-14] MEDS: Azithromycin 500 MG in Sodium Chloride 0.9% 250 ML IV SCH (11:49)
--- NOTE | 2017-07-14 12:06 | CR ---
Chest: Two views of the chest are obtained. Comparison: Prior chest x-ray 06/29/17. Patchy areas of increased densities are scattered within both lungs. Findings have slightly worsened from previous exam. Hiatal hernia is noted. Heart size is normal. Upper mediastinum is normal. Bony structures are unremarkable. Diaphragms are slightly flattened on the lateral view raising the possibility of emphysematous change. Impression: 1. Increased density of both sides of the chest which has worsened from previous chest x-ray. Findings presumably due to multifocal pneumonia. 2. Other incidental findings as noted above. Diagnostic code #3
[2017-07-14] MEDS: Albuterol/Ipratropium 3.0-0.5 MG/3 ML Neb Soln NEB SCH ×2 (14:51→20:51)
[2017-07-14] MEDS: Formoterol/Mometasone 200-5 MCG 8.8 GM Inhaler IH SCH (20:51)
[2017-07-14] MEDS: Temazepam 15 MG Cap PO PRN (21:27)
[2017-07-14] MEDS: Diltiazem 180 MG Cap.CD PO SCH (21:27)
[2017-07-14] MEDS: Pantoprazole 40 MG Tab.CR PO SCH (21:27)
[2017-07-15] MEDS: Albuterol/Ipratropium 3.0-0.5 MG/3 ML Neb Soln NEB SCH ×4 (05:01→20:25)
[2017-07-15] MEDS: Levofloxacin/Dextrose 5%-Water 750 MG in Premix Bag 1 BAG IV SCH (06:48)
--- NOTE | 2017-07-15 07:49 | PCM.PN ---
- General Info Date of Service: 07/15/17 Admission Dx/Problem (Free Text): pneumonia Subjective Update: In to see Hector. He is still on 1L via [place]. Attempted to remove oxygen while he showered and saturations dropped into the 80's. Sputum culture is pending. He has been ambulating. No concerns from him. Nursing has no concerns. Hopeful for discharge . Functional Status: Reports: Pain Controlled, Tolerating Diet, Ambulating, Urinating, Incentive Spirometry, Other (acapella ). Denies: New Symptoms - Review of Systems General: Reports: Weakness (improving ), Malaise (improving ). Denies: Fever, Fatigue HEENT: Reports: No Symptoms. Denies: Ear Pain, Eye Pain, Headaches, Sore Throat Pulmonary: Reports: No Symptoms. Denies: Shortness of Breath, Cough, Sputum, Wheezing Cardiovascular: Reports: Dyspnea on Exertion. Denies: Chest Pain, Palpitations , Edema, Lightheadedness Gastrointestinal: Reports: No Symptoms. Denies: Abdominal Pain, Constipation, Diarrhea, Nausea, Vomiting Genitourinary: Reports: No Symptoms Musculoskeletal: Reports: No Symptoms Skin: Reports: No Symptoms Neurological: Reports: No Symptoms Psychiatric: Reports: No Symptoms - Patient Data Vitals - Most Recent: Last Vital Signs Temp 98.2 F 07/15/17 03:15 Pulse 69 07/15/17 03:15 Resp 20 07/15/17 03:15 BP 107/70 07/15/17 03:15 Pulse Ox 95 07/15/17 04:15 Weight - Most Recent: 231 lb 4.8 oz I&O - Last 24 Hours: Intake & Output 07/14/17 07/15/17 07/15/17 22:59 06:59 14:59 Intake Total 1483 Output Total 350 Balance 1133 Lab Results Last 24 Hours: Laboratory Results - last 24 hr 07/14/17 07/14/17 07/15/17 Range/Units 05:39 06:15 05:55 WBC 6.39 (4.23-9.07) K/mm3 RBC 4.44 L (4.63-6.08) M/mm3 Hgb 14.1 (13.7-17.5) gm/L Hct 41.8 (40.1-51.0) % MCV 94.1 H (79.0-92.2) fl MCH 31.8 (25.7-32.2) pg MCHC 33.7 (32.2-35.5) g/dl RDW Std Deviation 43.4 (35.1-43.9) fL Plt Count 251 (163-337) K/mm3 MPV 9.7 (9.4-12.3) fl Neut % (Auto) 70.8 H (34.0-67.9) % Lymph % (Auto) 19.9 L (21.8-53.1) % [place] % (Auto) 7.7 (5.3-12.2) % Eos % (Auto) 1.1 (0.8-7.0) Baso % (Auto) 0.2 (0.1-1.2) % Neut # (Auto) 4.53 (1.78-5.38) K/mm3 Lymph # (Auto) 1.27 L (1.32-3.57) K/mm3 [place] # (Auto) 0.49 (0.30-0.82) K/mm3 Eos # (Auto) 0.07 (0.04-0.54) K/mm3 Baso # (Auto) 0.01 (0.01-0.08) K/mm3 Sodium (136-145) mEq/L Potassium (3.5-5.1) mEq/L Chloride (98-107) mEq/L Carbon Dioxide (21-32) mEq/L Anion Gap (5-15) BUN (7-18) mg/dL Creatinine (0.7-1.3) mg/dL Est Cr Clr Drug Dosing mL/min Estimated GFR (MDRD) (>60) mL/min BUN/Creatinine Ratio (14-18) Glucose (74-106) mg/dL Calcium (8.5-10.1) mg/dL Magnesium (1.8-2.4) mg/dl C-Reactive Protein 3.8 H* (<1.0) mg/dL Mycoplasma pneumon IgM Negative (NEGATIVE) 07/15/17 Range/Units 05:55 WBC (4.23-9.07) K/mm3 RBC (4.63-6.08) M/mm3 Hgb (13.7-17.5) gm/L Hct (40.1-51.0) % MCV (79.0-92.2) fl MCH (25.7-32.2) pg MCHC (32.2-35.5) g/dl RDW Std Deviation (35.1-43.9) fL Plt Count (163-337) K/mm3 MPV (9.4-12.3) fl Neut % (Auto) (34.0-67.9) % Lymph % (Auto) (21.8-53.1) % [place] % (Auto) (5.3-12.2) % Eos % (Auto) (0.8-7.0) Baso % (Auto) (0.1-1.2) % Neut # (Auto) (1.78-5.38) K/mm3 Lymph # (Auto) (1.32-3.57) K/mm3 [place] # (Auto) (0.30-0.82) K/mm3 Eos # (Auto) (0.04-0.54) K/mm3 Baso # (Auto) (0.01-0.08) K/mm3 Sodium 139 (136-145) mEq/L Potassium 3.0 L (3.5-5.1) mEq/L Chloride 104 (98-107) mEq/L Carbon Dioxide 27 (21-32) mEq/L Anion Gap 11.0 (5-15) BUN 10 (7-18) mg/dL Creatinine 1.0 (0.7-1.3) mg/dL Est Cr Clr Drug Dosing 81.11 mL/min Estimated GFR (MDRD) > 60 (>60) mL/min BUN/Creatinine Ratio 10.0 L (14-18) Glucose 148 H (74-106) mg/dL Calcium 8.2 L (8.5-10.1) mg/dL Magnesium 1.7 L (1.8-2.4) mg/dl C-Reactive Protein 14.3 H* (<1.0) mg/dL Mycoplasma pneumon IgM (NEGATIVE) Rex Results Last 24 Hours: Microbiology 07/14/17 06:25 Aerobic Blood Culture - Preliminary Blood - Venous - Lab Draw NO GROWTH AFTER 1 DAY Anaerobic Blood Culture - Preliminary NO GROWTH AFTER 1 DAY 07/14/17 06:15 Aerobic Blood Culture - Preliminary Blood - Venous NO GROWTH AFTER 1 DAY Anaerobic Blood Culture - Preliminary NO GROWTH AFTER 1 DAY 07/14/17 12:40 Respiratory Virus Panel (PCR) - Final Nasopharyngeal Swab - Nare, Unspecified 07/14/17 12:42 Gram Stain - Final Sputum - Expectorated 07/14/17 08:50 Gram Stain - Final Sputum - Expectorated Sputum Culture - Final Med Orders - Current: Current Medications Acetaminophen (Tylenol) 650 mg PO Q4H PRN PRN Reason: Pain (Mild 1-3)/fever Hydrocodone Bitart/Acetaminophen ([place] 325-5 Mg) 1 tab PO Q4H PRN PRN Reason: Pain (moderate 4-6) Albuterol (Proventil Neb Soln) 2.5 mg NEB Q2H PRN PRN Reason: Shortness Of Breath/wheezing Albuterol/Ipratropium (Duoneb 3.0-0.5 Mg/3 Ml) 3 ml NEB Q6HRRT [facility] Last Admin: 07/15/17 05:01 Dose: Not Given Bisacodyl (Dulcolax) 5 mg PO DAILY PRN PRN Reason: Constipation Diltiazem HCl (Cardizem Cd) 180 mg PO BEDTIME [facility] Last Admin: 07/14/17 21:27 Dose: 180 mg Docusate Sodium (Colace) 100 mg PO BID PRN PRN Reason: Constipation Enoxaparin Sodium (Lovenox) 40 mg SUBCUT DAILY [facility] Fluoxetine HCl (Prozac) 80 mg PO DAILY [facility] Guaifenesin/Phenylephrine HCl (Robitussin Dm) 10 ml PO QID PRN PRN Reason: cough Hydralazine HCl (Apresoline) 10 mg IVPUSH Q6H PRN PRN Reason: Hypertension Hydrochlorothiazide (Hydrochlorothiazide) 25 mg PO DAILY [facility] Levofloxacin/Dextrose 750 mg/ (Premix) 150 mls @ 100 mls/hr IV Q24H [facility] Last Admin: 07/15/17 06:48 Dose: 100 mls/hr Azithromycin 500 mg/ Sodium (Chloride) 250 mls @ 250 mls/hr IV Q24H [facility] Last Admin: 07/14/17 11:49 Dose: 250 mls/hr Lorazepam (Ativan) 0 mg IVPUSH Q4H PRN; Protocol PRN Reason: withdrawl Lorazepam (Ativan) 2 mg IVPUSH Q4H PRN PRN Reason: Seizures Losartan Potassium (Cozaar) 100 mg PO DAILY [facility] Losartan Potassium (Cozaar) 50 mg PO DAILY [facility] Magnesium Sulfate (Pharmacy To Dose - Magnesium Replacement) 0 dose .XX ASDIRECTED PRN PRN Reason: RX TO WATCH MAG LEVELS Metoprolol Succinate (Toprol Xl) 50 mg PO DAILY [facility] Metoprolol Tartrate (Lopressor) 5 mg IVPUSH Q4H PRN PRN Reason: Tachycardia Mometasone Furoate/Formoterol Fumar (Dulera 200-5 Mcg) 2 puff IH BID [facility] Last Admin: 07/14/17 20:51 Dose: 2 puff Ondansetron HCl (Zofran) 4 mg IV Q6H PRN PRN Reason: Nausea/Vomiting Ondansetron HCl (Zofran Odt) 4 mg PO Q6H PRN PRN Reason: nausea, able to take PO Pantoprazole Sodium (Protonix) 40 mg PO BEDTIME [facility] Last Admin: 07/14/17 21:27 Dose: 40 mg Polyethylene Glycol (Miralax) 17 gm PO DAILY PRN PRN Reason: Constipation Potassium Chloride (Pharmacy To Dose - Potassium Replacement) 0 dose .XX ASDIRECTED PRN PRN Reason: RX TO WATCH K LEVELS Saccharomyces Boulardii (Florastor) 250 mg PO DAILY [facility] Senna/Docusate Sodium (Senna Plus) 1 tab PO BID PRN PRN Reason: Constipation Sodium Chloride (Saline Flush) 10 ml FLUSH ASDIRECTED PRN PRN Reason: Keep Vein Open Last Admin: 07/14/17 08:02 Dose: 10 ml Temazepam (Restoril) 15 mg PO BEDTIME PRN PRN Reason: Sleep Last Admin: 07/14/17 21:27 Dose: 15 mg Discontinued Medications Acetaminophen (Tylenol) 975 mg PO NOW ONE Stop: 07/14/17 05:52 Last Admin: 07/14/17 06:11 Dose: 975 mg Albuterol/Ipratropium (Duoneb 3.0-0.5 Mg/3 Ml) 3 ml NEB ONETIME ONE Stop: 07/14/17 05:50 Last Admin: 07/14/17 06:03 Dose: 3 ml Azithromycin (Zithromax) 500 mg IV Q24H [facility] Levofloxacin/Dextrose 750 mg/ (Premix) 150 mls @ 100 mls/hr IV ONETIME ONE Stop: 07/14/17 07:19 Last Admin: 07/14/17 06:33 Dose: 100 mls/hr Sodium Chloride (Normal Saline) 1,000 mls @ 125 mls/hr IV ASDIRECTED [facility] Last Admin: 07/14/17 06:11 Dose: 125 mls/hr Sodium Chloride (Normal Saline) 250 mls @ 80 mls/hr IV ASDIRECTED [facility] Last Admin: 07/14/17 08:02 Dose: 80 mls/hr Sodium Chloride (Normal Saline) 1,000 mls @ 100 mls/hr IV ASDIRECTED [facility] Stop: 07/14/17 21:44 Last Admin: 07/14/17 17:03 Dose: 100 mls/hr Iopamidol (Isovue-370 (76%)) 100 ml IVPUSH ONETIME ONE Stop: 07/14/17 07:40 Last Admin: 07/14/17 08:02 Dose: 100 ml Iopamidol (Isovue-370 (76%)) 50 ml IVPUSH ONETIME ONE Stop: 07/14/17 07:40 Last Admin: 07/14/17 08:02 Dose: 50 ml Lorazepam (Ativan) 0 mg IVPUSH Q4H PRN; Protocol PRN Reason: withdrawl - Exam Quality Assessment: Supplemental Oxygen, DVT Prophylaxis General: Alert, Oriented, Cooperative, No Acute Distress HEENT: Pupils Equal, Pupils Reactive, EOMI, Mucous Membr. Moist/[place] Neck: Supple, Trachea Midline, No JVD Lungs: Clear to Auscultation, Normal Respiratory Effort, Decreased Breath Sounds. No: Crackles, Rales, Rhonchi, Wheezing Cardiovascular: Regular Rate, Regular Rhythm GI/Abdominal Exam: Normal Bowel Sounds, Soft, Non-Tender, No Organomegaly, No Distention, No Abnormal Bruit, No Mass, Pelvis Stable (Male) Exam: Deferred Back Exam: Normal Inspection, Full Range of Motion Extremities: Normal Inspection, Normal Range of Motion, Non-Tender, No Pedal Edema, Normal Capillary Refill Peripheral Pulses: 2+: Radial (L), Radial (R), Posterior Tibial (L), Posterior Tibial (R), Dorsalis Pedis (L), Dorsalis Pedis (R) Skin: Warm, Dry, Intact Neurological: No New Focal Deficit Psy/Mental Status: Alert, Normal Affect, Normal Mood - Problem List & Annotations (1) Hypoxia SNOMED Code(s): 290167427 Code(s): R09.02 - HYPOXEMIA Status: Acute Priority: High Current Visit : Yes (2) Pneumonia SNOMED Code(s): 495854657 Code(s): J18.9 - PNEUMONIA, UNSPECIFIED ORGANISM Status: Acute Priority: High Current Visit: Yes Qualifiers: Pneumonia type: due to unspecified organism Laterality: bilateral Lung location: unspecified part of lung Qualified Code(s): J18.9 - Pneumonia, unspecified organism (3) Asthma SNOMED Code(s): 869485130 Code(s): J45.909 - UNSPECIFIED ASTHMA, UNCOMPLICATED Status: Chronic Priority: High Current Visit: Yes Qualifiers: Asthma severity: moderate Asthma persistence: unspecified Asthma complication type: with acute exacerbation Qualified Code(s): J45.901 - Unspecified asthma with (acute) exacerbation (4) Alcohol abuse SNOMED Code(s): 26896987 Code(s): F10.10 - ALCOHOL ABUSE, UNCOMPLICATED Status: Chronic Priority: Medium Current Visit: No (5) Anxiety SNOMED Code(s): 91763465 Code(s): F41.9 - ANXIETY DISORDER, UNSPECIFIED Status: Chronic Priority: Medium Current Visit: No (6) GERD (gastroesophageal reflux disease) SNOMED Code(s): 433198053 Code(s): K21.9 - GASTRO-ESOPHAGEAL REFLUX DISEASE WITHOUT ESOPHAGITIS Status: Chronic Priority: Medium Current Visit: No Qualifiers: Esophagitis presence: esophagitis presence not specified Qualified Code(s) : K21.9 - Gastro-esophageal reflux disease without esophagitis (7) Hypertension SNOMED Code(s): 17315634 Code(s): I10 - ESSENTIAL (PRIMARY) HYPERTENSION Status: Chronic Priority : Medium Current Visit: No Qualifiers: Hypertension type: unspecified Qualified Code(s): I10 - Essential (primary ) hypertension (8) Hypokalemia SNOMED Code(s): 13113273 Code(s): E87.6 - HYPOKALEMIA Status: Acute Priority: High Current Visit : Yes (9) Hypomagnesemia SNOMED Code(s): 496916016 Code(s): E83.42 - HYPOMAGNESEMIA Status: Acute Priority: High Current Visit: Yes - Problem List Review Problem List Initiated/Reviewed/Updated: Yes - My Orders Last 24 Hours: My Active Orders 07/14/17 10:13 Cardiac Monitoring [RC] CONTINUOUS Height and Weight [RC] 04 Intake and Output [RC] 04,16 Pulse Oximetry [RC] PRN Up With Assistance [RC] ASDIRECTED VTE/DVT Education [RC] BID Vital Signs [RC] Q4HR OT Evaluation and Treatment [CONS] Routine PT Evaluation and Treatment [CONS] Routine Respiratory Care Assess and Treatment [CONS] Routine Acetaminophen [Tylenol] 650 mg PO Q4H PRN Acetaminophen/HYDROcodone [[place] 325-5 MG] 1 tab PO Q4H PRN Albuterol [Proventil Neb Soln] 2.5 mg NEB Q2H PRN Bisacodyl [Dulcolax] 5 mg PO DAILY PRN Docusate Sodium [Colace] 100 mg PO BID PRN Docusate Sodium/Sennosides [Senna Plus] 1 tab PO BID PRN Ondansetron [Zofran ODT] 4 mg PO Q6H PRN Ondansetron [Zofran] 4 mg IV Q6H PRN Polyethylene Glycol 3350 [MiraLAX] 17 gm PO DAILY PRN Resuscitation Status Routine 07/14/17 10:18 Dextromethorphan/guaiFENesin [Robitussin DM] 10 ml PO QID PRN Metoprolol Tartrate [Lopressor] 5 mg IVPUSH Q4H PRN hydrALAZINE [Apresoline] 10 mg IVPUSH Q6H PRN 07/14/17 10:20 CIWAA Assessment [RC] Q4HR RT Incentive Spirometry [RC] ASDIRECTED 07/14/17 10:21 Acapella [RT Chest Physiotherapy] [RC] ASDIRECTED 07/14/17 10:23 LORazepam [Ativan] See Protocol IVPUSH Q4H PRN Precautions [COMM] Routine 07/14/17 10:27 LORazepam [Ativan] 2 mg IVPUSH Q4H PRN 07/14/17 10:30 Magnesium Rep Pharmacy to Dose [Pharmacy to Dose - Magnesium Replacement] 0 dose .XX ASDIRECTED PRN Potassium Rep Pharmacy to Dose [Pharmacy to Dose - Potassium Replacement] 0 dose .XX ASDIRECTED PRN 07/14/17 11:00 Azithromycin [Zithromax] 500 mg Sodium Chloride 0.9% [Normal Saline] 250 ml IV Q24H 07/14/17 11:22 Isolation [COMM] Routine 07/14/17 11:38 Ambulate [RC] ASDIRECTED 07/14/17 12:13 Patient Status [ADT] Routine 07/14/17 12:42 CULTURE SPUTUM + SMEAR [RM] Routine 07/14/17 15:00 Albuterol/Ipratropium [DuoNeb 3.0-0.5 MG/3 ML] 3 ml NEB Q6HRRT 07/14/17 16:02 STREP PNEUMONIAE ANTIGEN [MREF] Routine 07/14/17 21:00 Diltiazem [Cardizem CD] 180 mg PO BEDTIME Mometasone/Formoterol [Dulera 200-5 MCG] 2 puff IH BID Pantoprazole [ProTONIX] 40 mg PO BEDTIME 07/14/17 Lunch Heart Healthy Diet [DIET] 07/15/17 06:00 Levofloxacin/Dextrose 5%-Water [Levaquin in D5W 750 MG/150 ML] 750 mg Premix Bag 1 bag IV Q24H 07/15/17 09:00 Enoxaparin [Lovenox] 40 mg SUBCUT DAILY FLUoxetine [PROzac] 80 mg PO DAILY Hydrochlorothiazide 25 mg PO DAILY Losartan [Cozaar] 100 mg PO DAILY Losartan [Cozaar] 50 mg PO DAILY Metoprolol Succinate [Toprol XL] 50 mg PO DAILY Saccharomyces Boulardii [Florastor] 250 mg PO DAILY 07/16/17 05:11 BASIC METABOLIC PANEL,BMP [CHEM] AM CBC WITH AUTO DIFF [HEME] AM CRP [C-REACTIVE PROTEIN] [CHEM] AM MAGNESIUM [CHEM] AM 07/16/17 08:00 Chest 2V [CR] Routine 07/17/17 05:11 BASIC METABOLIC PANEL,BMP [CHEM] AM CBC WITH AUTO DIFF [HEME] AM CRP [C-REACTIVE PROTEIN] [CHEM] AM MAGNESIUM [CHEM] AM 07/18/17 05:11 BASIC METABOLIC PANEL,BMP [CHEM] AM CBC WITH AUTO DIFF [HEME] AM CRP [C-REACTIVE PROTEIN] [CHEM] AM MAGNESIUM [CHEM] AM - Plan Plan:: I/P: Acute: PNA -Hospitalized 06/28-06/30 for pneumonia -Sputum culture negative at that time, Negative respiratory viral panel -Discharged home on medrol dosepak and 5 day course of azithrmoycin -Reports fever, weakness, productive cough, SOB, low oxygen saturations -Oxygen saturations 78% at home and 80% in ED -CXR shows bilateral diffuse parenchymal densities -CTA on 07/14/17: 1. Patchy areas of rectal density throughout both sides of the chest. Findings most likely represent multifocal pneumonia. 2. No findings of pulmonary embolism. 3. Moderately large hiatal hernia -Sputum culture - pending -Strep pneumo - pending -Mycoplasma and viral respiratory panel negative -CRP 3.8-->14.3 -WBC 15.7-->6.39 -Lactic acid 1.4 -Levaquin 750 mg IV given in ED - continue Q24 -Start azithromycin -IS/Acapella/RT/Duonebs -Ambulate -O2 as needed -Repeat CXR tomorrow -Blood cultures negative after day 1 [place] exacerbation -Acute on chronic -2/2 above -See orders above -Not wheezing - will hold off steroid for now Chronic: ETOH use -Reports 5 drinks per day 7 days a week -CIWA protocol - have been 0-1 thus far -Ativan for seizures and seizure precautions -Last visit CIWAs were 0-1 throughout stay -Liver enzymes WNL -No need for SW/CM/Psych/LAC at this time HTN GERD Anxiety Plan: Admit to medical floor on telemetry Home medications as ordered Other orders as above Routine AM labs DVT prophylaxis: Lovenox GI prophylaxis: Home PPI PT/OT Code status: Full code; PCP: Dr. Campos
[2017-07-15] MEDS: Formoterol/Mometasone 200-5 MCG 8.8 GM Inhaler IH SCH ×2 (08:11→20:24)
--- NOTE | 2017-07-15 08:15 | PCM.PN ---
- General Info Date of Service: 07/15/17 Admission Dx/Problem (Free Text): pneumonia - Patient Data Vitals - Most Recent: Last Vital Signs Temp 97.7 F 07/15/17 08:07 Pulse 80 07/15/17 08:07 Resp 16 07/15/17 08:07 BP 145/88 H 07/15/17 08:07 Pulse Ox 93 L 07/15/17 08:11 Weight - Most Recent: 231 lb 4.8 oz I&O - Last 24 Hours: Intake & Output 07/14/17 07/15/17 07/15/17 22:59 06:59 14:59 Intake Total 1483 Output Total 350 Balance 1133 Lab Results Last 24 Hours: Laboratory Results - last 24 hr 07/14/17 07/14/17 07/15/17 Range/Units 05:39 06:15 05:55 WBC 6.39 (4.23-9.07) K/mm3 RBC 4.44 L (4.63-6.08) M/mm3 Hgb 14.1 (13.7-17.5) gm/L Hct 41.8 (40.1-51.0) % MCV 94.1 H (79.0-92.2) fl MCH 31.8 (25.7-32.2) pg MCHC 33.7 (32.2-35.5) g/dl RDW Std Deviation 43.4 (35.1-43.9) fL Plt Count 251 (163-337) K/mm3 MPV 9.7 (9.4-12.3) fl Neut % (Auto) 70.8 H (34.0-67.9) % Lymph % (Auto) 19.9 L (21.8-53.1) % [place] % (Auto) 7.7 (5.3-12.2) % Eos % (Auto) 1.1 (0.8-7.0) Baso % (Auto) 0.2 (0.1-1.2) % Neut # (Auto) 4.53 (1.78-5.38) K/mm3 Lymph # (Auto) 1.27 L (1.32-3.57) K/mm3 [place] # (Auto) 0.49 (0.30-0.82) K/mm3 Eos # (Auto) 0.07 (0.04-0.54) K/mm3 Baso # (Auto) 0.01 (0.01-0.08) K/mm3 Sodium (136-145) mEq/L Potassium (3.5-5.1) mEq/L Chloride (98-107) mEq/L Carbon Dioxide (21-32) mEq/L Anion Gap (5-15) BUN (7-18) mg/dL Creatinine (0.7-1.3) mg/dL Est Cr Clr Drug Dosing mL/min Estimated GFR (MDRD) (>60) mL/min BUN/Creatinine Ratio (14-18) Glucose (74-106) mg/dL Calcium (8.5-10.1) mg/dL Magnesium (1.8-2.4) mg/dl C-Reactive Protein 3.8 H* (<1.0) mg/dL Mycoplasma pneumon IgM Negative (NEGATIVE) 07/15/17 Range/Units 05:55 WBC (4.23-9.07) K/mm3 RBC (4.63-6.08) M/mm3 Hgb (13.7-17.5) gm/L Hct (40.1-51.0) % MCV (79.0-92.2) fl MCH (25.7-32.2) pg MCHC (32.2-35.5) g/dl RDW Std Deviation (35.1-43.9) fL Plt Count (163-337) K/mm3 MPV (9.4-12.3) fl Neut % (Auto) (34.0-67.9) % Lymph % (Auto) (21.8-53.1) % [place] % (Auto) (5.3-12.2) % Eos % (Auto) (0.8-7.0) Baso % (Auto) (0.1-1.2) % Neut # (Auto) (1.78-5.38) K/mm3 Lymph # (Auto) (1.32-3.57) K/mm3 [place] # (Auto) (0.30-0.82) K/mm3 Eos # (Auto) (0.04-0.54) K/mm3 Baso # (Auto) (0.01-0.08) K/mm3 Sodium 139 (136-145) mEq/L Potassium 3.0 L (3.5-5.1) mEq/L Chloride 104 (98-107) mEq/L Carbon Dioxide 27 (21-32) mEq/L Anion Gap 11.0 (5-15) BUN 10 (7-18) mg/dL Creatinine 1.0 (0.7-1.3) mg/dL Est Cr Clr Drug Dosing 81.11 mL/min Estimated GFR (MDRD) > 60 (>60) mL/min BUN/Creatinine Ratio 10.0 L (14-18) Glucose 148 H (74-106) mg/dL Calcium 8.2 L (8.5-10.1) mg/dL Magnesium 1.7 L (1.8-2.4) mg/dl C-Reactive Protein 14.3 H* (<1.0) mg/dL Mycoplasma pneumon IgM (NEGATIVE) Rex Results Last 24 Hours: Microbiology 07/14/17 06:25 Aerobic Blood Culture - Preliminary Blood - Venous - Lab Draw NO GROWTH AFTER 1 DAY Anaerobic Blood Culture - Preliminary NO GROWTH AFTER 1 DAY 07/14/17 06:15 Aerobic Blood Culture - Preliminary Blood - Venous NO GROWTH AFTER 1 DAY Anaerobic Blood Culture - Preliminary NO GROWTH AFTER 1 DAY 07/14/17 12:40 Respiratory Virus Panel (PCR) - Final Nasopharyngeal Swab - Nare, Unspecified 07/14/17 12:42 Gram Stain - Final Sputum - Expectorated 07/14/17 08:50 Gram Stain - Final Sputum - Expectorated Sputum Culture - Final Med Orders - Current: Current Medications Acetaminophen (Tylenol) 650 mg PO Q4H PRN PRN Reason: Pain (Mild 1-3)/fever Hydrocodone Bitart/Acetaminophen ([place] 325-5 Mg) 1 tab PO Q4H PRN PRN Reason: Pain (moderate 4-6) Albuterol (Proventil Neb Soln) 2.5 mg NEB Q2H PRN PRN Reason: Shortness Of Breath/wheezing Albuterol/Ipratropium (Duoneb 3.0-0.5 Mg/3 Ml) 3 ml NEB Q6HRRT [facility] Last Admin: 07/15/17 08:11 Dose: 3 ml Bisacodyl (Dulcolax) 5 mg PO DAILY PRN PRN Reason: Constipation Diltiazem HCl (Cardizem Cd) 180 mg PO BEDTIME [facility] Last Admin: 07/14/17 21:27 Dose: 180 mg Docusate Sodium (Colace) 100 mg PO BID PRN PRN Reason: Constipation Enoxaparin Sodium (Lovenox) 40 mg SUBCUT DAILY [facility] Fluoxetine HCl (Prozac) 80 mg PO DAILY [facility] Guaifenesin/Phenylephrine HCl (Robitussin Dm) 10 ml PO QID PRN PRN Reason: cough Hydralazine HCl (Apresoline) 10 mg IVPUSH Q6H PRN PRN Reason: Hypertension Hydrochlorothiazide (Hydrochlorothiazide) 25 mg PO DAILY [facility] Levofloxacin/Dextrose 750 mg/ (Premix) 150 mls @ 100 mls/hr IV Q24H [facility] Last Admin: 07/15/17 06:48 Dose: 100 mls/hr Azithromycin 500 mg/ Sodium (Chloride) 250 mls @ 250 mls/hr IV Q24H [facility] Last Admin: 07/14/17 11:49 Dose: 250 mls/hr Lorazepam (Ativan) 0 mg IVPUSH Q4H PRN; Protocol PRN Reason: withdrawl Lorazepam (Ativan) 2 mg IVPUSH Q4H PRN PRN Reason: Seizures Losartan Potassium (Cozaar) 100 mg PO DAILY [facility] Losartan Potassium (Cozaar) 50 mg PO DAILY [facility] Magnesium Sulfate (Pharmacy To Dose - Magnesium Replacement) 0 dose .XX ASDIRECTED PRN PRN Reason: RX TO WATCH MAG LEVELS Metoprolol Succinate (Toprol Xl) 50 mg PO DAILY [facility] Metoprolol Tartrate (Lopressor) 5 mg IVPUSH Q4H PRN PRN Reason: Tachycardia Mometasone Furoate/Formoterol Fumar (Dulera 200-5 Mcg) 2 puff IH BID [facility] Last Admin: 07/15/17 08:11 Dose: 2 puff Ondansetron HCl (Zofran) 4 mg IV Q6H PRN PRN Reason: Nausea/Vomiting Ondansetron HCl (Zofran Odt) 4 mg PO Q6H PRN PRN Reason: nausea, able to take PO Pantoprazole Sodium (Protonix) 40 mg PO BEDTIME [facility] Last Admin: 07/14/17 21:27 Dose: 40 mg Polyethylene Glycol (Miralax) 17 gm PO DAILY PRN PRN Reason: Constipation Potassium Chloride (Pharmacy To Dose - Potassium Replacement) 0 dose .XX ASDIRECTED PRN PRN Reason: RX TO WATCH K LEVELS Saccharomyces Boulardii (Florastor) 250 mg PO DAILY [facility] Senna/Docusate Sodium (Senna Plus) 1 tab PO BID PRN PRN Reason: Constipation Sodium Chloride (Saline Flush) 10 ml FLUSH ASDIRECTED PRN PRN Reason: Keep Vein Open Last Admin: 07/14/17 08:02 Dose: 10 ml Temazepam (Restoril) 15 mg PO BEDTIME PRN PRN Reason: Sleep Last Admin: 07/14/17 21:27 Dose: 15 mg Discontinued Medications Acetaminophen (Tylenol) 975 mg PO NOW ONE Stop: 07/14/17 05:52 Last Admin: 07/14/17 06:11 Dose: 975 mg Albuterol/Ipratropium (Duoneb 3.0-0.5 Mg/3 Ml) 3 ml NEB ONETIME ONE Stop: 07/14/17 05:50 Last Admin: 07/14/17 06:03 Dose: 3 ml Azithromycin (Zithromax) 500 mg IV Q24H [facility] Levofloxacin/Dextrose 750 mg/ (Premix) 150 mls @ 100 mls/hr IV ONETIME ONE Stop: 07/14/17 07:19 Last Admin: 07/14/17 06:33 Dose: 100 mls/hr Sodium Chloride (Normal Saline) 1,000 mls @ 125 mls/hr IV ASDIRECTED [facility] Last Admin: 07/14/17 06:11 Dose: 125 mls/hr Sodium Chloride (Normal Saline) 250 mls @ 80 mls/hr IV ASDIRECTED [facility] Last Admin: 07/14/17 08:02 Dose: 80 mls/hr Sodium Chloride (Normal Saline) 1,000 mls @ 100 mls/hr IV ASDIRECTED [facility] Stop: 07/14/17 21:44 Last Admin: 07/14/17 17:03 Dose: 100 mls/hr Iopamidol (Isovue-370 (76%)) 100 ml IVPUSH ONETIME ONE Stop: 07/14/17 07:40 Last Admin: 07/14/17 08:02 Dose: 100 ml Iopamidol (Isovue-370 (76%)) 50 ml IVPUSH ONETIME ONE Stop: 07/14/17 07:40 Last Admin: 07/14/17 08:02 Dose: 50 ml Lorazepam (Ativan) 0 mg IVPUSH Q4H PRN; Protocol PRN Reason: withdrawl - Problem List & Annotations (1) Hypoxia SNOMED Code(s): 406096574 Code(s): R09.02 - HYPOXEMIA Status: Acute Priority: High Current Visit : Yes (2) Pneumonia SNOMED Code(s): 950898137 Code(s): J18.9 - PNEUMONIA, UNSPECIFIED ORGANISM Status: Acute Priority: High Current Visit: Yes Qualifiers: Pneumonia type: due to unspecified organism Laterality: bilateral Lung location: unspecified part of lung Qualified Code(s): J18.9 - Pneumonia, unspecified organism (3) Asthma SNOMED Code(s): 296443761 Code(s): J45.909 - UNSPECIFIED ASTHMA, UNCOMPLICATED Status: Chronic Priority: High Current Visit: Yes Qualifiers: Asthma severity: moderate Asthma persistence: unspecified Asthma complication type: with acute exacerbation Qualified Code(s): J45.901 - Unspecified asthma with (acute) exacerbation (4) Alcohol abuse SNOMED Code(s): 58280953 Code(s): F10.10 - ALCOHOL ABUSE, UNCOMPLICATED Status: Chronic Priority: Medium Current Visit: No (5) Anxiety SNOMED Code(s): 75591566 Code(s): F41.9 - ANXIETY DISORDER, UNSPECIFIED Status: Chronic Priority: Medium Current Visit: No (6) GERD (gastroesophageal reflux disease) SNOMED Code(s): 226114522 Code(s): K21.9 - GASTRO-ESOPHAGEAL REFLUX DISEASE WITHOUT ESOPHAGITIS Status: Chronic Priority: Medium Current Visit: No Qualifiers: Esophagitis presence: esophagitis presence not specified Qualified Code(s) : K21.9 - Gastro-esophageal reflux disease without esophagitis (7) Hypertension SNOMED Code(s): 06776909 Code(s): I10 - ESSENTIAL (PRIMARY) HYPERTENSION Status: Chronic Priority : Medium Current Visit: No Qualifiers: Hypertension type: unspecified Qualified Code(s): I10 - Essential (primary ) hypertension (8) Hypokalemia SNOMED Code(s): 31570833 Code(s): E87.6 - HYPOKALEMIA Status: Acute Priority: High Current Visit : Yes (9) Hypomagnesemia SNOMED Code(s): 466196093 Code(s): E83.42 - HYPOMAGNESEMIA Status: Acute Priority: High Current Visit: Yes - My Orders Last 24 Hours: My Active Orders 07/14/17 10:13 Cardiac Monitoring [RC] CONTINUOUS Height and Weight [RC] 04 Intake and Output [RC] 04,16 Pulse Oximetry [RC] PRN Up With Assistance [RC] ASDIRECTED VTE/DVT Education [RC] BID Vital Signs [RC] Q4HR OT Evaluation and Treatment [CONS] Routine PT Evaluation and Treatment [CONS] Routine Respiratory Care Assess and Treatment [CONS] Routine Acetaminophen [Tylenol] 650 mg PO Q4H PRN Acetaminophen/HYDROcodone [[place] 325-5 MG] 1 tab PO Q4H PRN Albuterol [Proventil Neb Soln] 2.5 mg NEB Q2H PRN Bisacodyl [Dulcolax] 5 mg PO DAILY PRN Docusate Sodium [Colace] 100 mg PO BID PRN Docusate Sodium/Sennosides [Senna Plus] 1 tab PO BID PRN Ondansetron [Zofran ODT] 4 mg PO Q6H PRN Ondansetron [Zofran] 4 mg IV Q6H PRN Polyethylene Glycol 3350 [MiraLAX] 17 gm PO DAILY PRN Resuscitation Status Routine 07/14/17 10:18 Dextromethorphan/guaiFENesin [Robitussin DM] 10 ml PO QID PRN Metoprolol Tartrate [Lopressor] 5 mg IVPUSH Q4H PRN hydrALAZINE [Apresoline] 10 mg IVPUSH Q6H PRN 07/14/17 10:20 CIWAA Assessment [RC] Q4HR RT Incentive Spirometry [RC] ASDIRECTED 07/14/17 10:21 Acapella [RT Chest Physiotherapy] [RC] ASDIRECTED 07/14/17 10:23 LORazepam [Ativan] See Protocol IVPUSH Q4H PRN Precautions [COMM] Routine 07/14/17 10:27 LORazepam [Ativan] 2 mg IVPUSH Q4H PRN 07/14/17 10:30 Magnesium Rep Pharmacy to Dose [Pharmacy to Dose - Magnesium Replacement] 0 dose .XX ASDIRECTED PRN Potassium Rep Pharmacy to Dose [Pharmacy to Dose - Potassium Replacement] 0 dose .XX ASDIRECTED PRN 07/14/17 11:00 Azithromycin [Zithromax] 500 mg Sodium Chloride 0.9% [Normal Saline] 250 ml IV Q24H 07/14/17 11:22 Isolation [COMM] Routine 07/14/17 11:38 Ambulate [RC] ASDIRECTED 07/14/17 12:13 Patient Status [ADT] Routine 07/14/17 12:42 CULTURE SPUTUM + SMEAR [RM] Routine 07/14/17 15:00 Albuterol/Ipratropium [DuoNeb 3.0-0.5 MG/3 ML] 3 ml NEB Q6HRRT 07/14/17 16:02 STREP PNEUMONIAE ANTIGEN [MREF] Routine 07/14/17 21:00 Diltiazem [Cardizem CD] 180 mg PO BEDTIME Mometasone/Formoterol [Dulera 200-5 MCG] 2 puff IH BID Pantoprazole [ProTONIX] 40 mg PO BEDTIME 07/14/17 Lunch Heart Healthy Diet [DIET] 07/15/17 06:00 Levofloxacin/Dextrose 5%-Water [Levaquin in D5W 750 MG/150 ML] 750 mg Premix Bag 1 bag IV Q24H 07/15/17 09:00 Enoxaparin [Lovenox] 40 mg SUBCUT DAILY FLUoxetine [PROzac] 80 mg PO DAILY Hydrochlorothiazide 25 mg PO DAILY Losartan [Cozaar] 100 mg PO DAILY Losartan [Cozaar] 50 mg PO DAILY Metoprolol Succinate [Toprol XL] 50 mg PO DAILY Saccharomyces Boulardii [Florastor] 250 mg PO DAILY 07/16/17 05:11 BASIC METABOLIC PANEL,BMP [CHEM] AM CBC WITH AUTO DIFF [HEME] AM CRP [C-REACTIVE PROTEIN] [CHEM] AM MAGNESIUM [CHEM] AM 07/16/17 08:00 Chest 2V [CR] Routine 07/17/17 05:11 BASIC METABOLIC PANEL,BMP [CHEM] AM CBC WITH AUTO DIFF [HEME] AM CRP [C-REACTIVE PROTEIN] [CHEM] AM MAGNESIUM [CHEM] AM 07/18/17 05:11 BASIC METABOLIC PANEL,BMP [CHEM] AM CBC WITH AUTO DIFF [HEME] AM CRP [C-REACTIVE PROTEIN] [CHEM] AM MAGNESIUM [CHEM] AM - Plan Plan:: I/P: Acute: PNA -Hospitalized 06/28-06/30 for pneumonia -Sputum culture negative at that time, Negative respiratory viral panel -Discharged home on medrol dosepak and 5 day course of azithrmoycin -Reports fever, weakness, productive cough, SOB, low oxygen saturations -Oxygen saturations 78% at home and 80% in ED -CXR shows bilateral diffuse parenchymal densities -CTA on 07/14/17: 1. Patchy areas of rectal density throughout both sides of the chest. Findings most likely epresent multifocal pneumonia. 2. No findings of pulmonary embolism. 3. Moderately large hiatal hernia -Sputum culture -Strep pneumo and viral respiratory panel pending -Mycoplasma negative -CRP ordered -WBC 15.7 -Lactic acid 1.4 -Levaquin 750 mg IV given in ED - continue Q24 -Start azithromycin -IS/Acapella/RT/Duonebs -Ambulate -O2 as needed -Repeat CXR in 24-48 hours -Blood cultures pending [place] exacerbation -Acute on chronic -2/ above -See orders above -Not wheezing - will hold off steroid for now Chronic: ETOH use -Reports 5 drinks per day 7 days a week -CIWA protocol -Ativan for seizures and seizure precautions -Last visit CIWAs were 0-1 throughout stay -Liver enzymes WNL -No need for SW/CM/Psych/LAC at this time HTN GERD Anxiety Plan: Admit to medical floor on telemetry Home medications as ordered Other orders as above Routine AM labs DVT prophylaxis: Lovenox GI prophylaxis: Home PPI PT/OT Code status: Full code; PCP: Dr. Campos
[2017-07-15] MEDS ORDERED: Magnesium Oxide 400 MG Tab PO ONE (09:00)
[2017-07-15] MEDS: Losartan 25 MG Tab PO SCH (09:22)
[2017-07-15] MEDS: Saccharomyces Boulardii (Probiotic) 250 MG Cap PO SCH (09:22)
[2017-07-15] MEDS: Potassium Chloride 20 MEQ Tab.ER PO SCH ×2 (09:23→13:55)
[2017-07-15] MEDS: FLUoxetine 20 MG Cap PO SCH (09:23)
[2017-07-15] MEDS: Metoprolol Succinate 50 MG Tab.ER PO SCH (09:23)
[2017-07-15] MEDS: Hydrochlorothiazide 25 MG Tab PO SCH (09:24)
[2017-07-15] MEDS: Enoxaparin 40 MG/0.4 ML Syringe SUBCUT SCH (09:24)
[2017-07-15] MEDS: Losartan 100 MG Tab PO SCH (09:24)
[2017-07-15] MEDS: Azithromycin 500 MG in Sodium Chloride 0.9% 250 ML IV SCH (11:50)
[2017-07-15] MEDS: Pantoprazole 40 MG Tab.CR PO SCH (21:56)
[2017-07-15] MEDS: Diltiazem 180 MG Cap.CD PO SCH (21:56)
[2017-07-15] MEDS: Temazepam 15 MG Cap PO PRN (21:59)
[2017-07-16] MEDS: Albuterol/Ipratropium 3.0-0.5 MG/3 ML Neb Soln NEB SCH ×4 (03:10→20:01)
[2017-07-16] MEDS: Levofloxacin/Dextrose 5%-Water 750 MG in Premix Bag 1 BAG IV SCH (05:10)
--- NOTE | 2017-07-16 07:40 | PCM.PN ---
- General Info Date of Service: 07/16/17 Admission Dx/Problem (Free Text): pneumonia Subjective Update: In to see [place]. He is getting ready to eat. He has no complaints or concerns. He reports he feels about the same. His CXR was stable this AM. Nursing has been attempting to wean him off O2. No sputum culture results back yet. Functional Status: Reports: Pain Controlled, Tolerating Diet, Ambulating, Urinating, New Symptoms, Incentive Spirometry, Other (acapella ) - Review of Systems General: Reports: Weakness (improving ). Denies: Fever, Fatigue, Malaise, Chills HEENT: Reports: No Symptoms Pulmonary: Reports: Shortness of Breath (improving ), Cough. Denies: Pleuritic Chest Pain, Sputum, Wheezing Cardiovascular: Reports: Dyspnea on Exertion. Denies: Chest Pain, Palpitations , Edema, Lightheadedness Gastrointestinal: Denies: Abdominal Pain, Constipation, Diarrhea, Nausea, Vomiting Genitourinary: Reports: No Symptoms Musculoskeletal: Reports: No Symptoms Skin: Reports: No Symptoms Neurological: Reports: No Symptoms Psychiatric: Reports: No Symptoms - Patient Data Vitals - Most Recent: Last Vital Signs Temp 98.6 F 07/16/17 00:23 Pulse 86 07/16/17 00:23 Resp 19 07/16/17 00:23 BP 137/94 H 07/16/17 00:23 Pulse Ox 93 L 07/16/17 03:10 Weight - Most Recent: 231 lb 4.8 oz I&O - Last 24 Hours: Intake & Output 07/15/17 07/16/17 07/16/17 22:59 06:59 14:59 Intake Total 1320 Output Total 2000 Balance -680 Lab Results Last 24 Hours: Laboratory Results - last 24 hr 07/16/17 07/16/17 Range/Units 05:25 05:25 WBC 5.27 (4.23-9.07) K/mm3 RBC 4.26 L (4.63-6.08) M/mm3 Hgb 13.6 L (13.7-17.5) gm/L Hct 40.6 (40.1-51.0) % MCV 95.3 H (79.0-92.2) fl MCH 31.9 (25.7-32.2) pg MCHC 33.5 (32.2-35.5) g/dl RDW Std Deviation 43.4 (35.1-43.9) fL Plt Count 258 (163-337) K/mm3 MPV 10.0 (9.4-12.3) fl Neut % (Auto) 68.1 H (34.0-67.9) % Lymph % (Auto) 20.3 L (21.8-53.1) % [place] % (Auto) 10.1 (5.3-12.2) % Eos % (Auto) 1.3 (0.8-7.0) Baso % (Auto) 0.2 (0.1-1.2) % Neut # (Auto) 3.59 (1.78-5.38) K/mm3 Lymph # (Auto) 1.07 L (1.32-3.57) K/mm3 [place] # (Auto) 0.53 (0.30-0.82) K/mm3 Eos # (Auto) 0.07 (0.04-0.54) K/mm3 Baso # (Auto) 0.01 (0.01-0.08) K/mm3 Sodium 139 (136-145) mEq/L Potassium 3.2 L (3.5-5.1) mEq/L Chloride 104 (98-107) mEq/L Carbon Dioxide 27 (21-32) mEq/L Anion Gap 11.2 (5-15) BUN 7 (7-18) mg/dL Creatinine 0.9 (0.7-1.3) mg/dL Est Cr Clr Drug Dosing 90.12 mL/min Estimated GFR (MDRD) > 60 (>60) mL/min BUN/Creatinine Ratio 7.8 L (14-18) Glucose 107 H (74-106) mg/dL Calcium 8.6 (8.5-10.1) mg/dL Magnesium 1.6 L (1.8-2.4) mg/dl C-Reactive Protein 7.2 H* (<1.0) mg/dL Rex Results Last 24 Hours: Microbiology 07/14/17 06:25 Aerobic Blood Culture - Preliminary Blood - Venous - Lab Draw NO GROWTH AFTER 2 DAYS Anaerobic Blood Culture - Preliminary NO GROWTH AFTER 2 DAYS 07/14/17 06:15 Aerobic Blood Culture - Preliminary Blood - Venous NO GROWTH AFTER 2 DAYS Anaerobic Blood Culture - Preliminary NO GROWTH AFTER 2 DAYS 07/14/17 16:02 Streptococcus pneumoniae Antigen (M - Final Urine 07/14/17 12:42 Gram Stain - Final Sputum - Expectorated Sputum Culture - Preliminary 07/14/17 12:40 Respiratory Virus Panel (PCR) - Final Nasopharyngeal Swab - Nare, Unspecified Med Orders - Current: Current Medications Acetaminophen (Tylenol) 650 mg PO Q4H PRN PRN Reason: Pain (Mild 1-3)/fever Hydrocodone Bitart/Acetaminophen ([place] 325-5 Mg) 1 tab PO Q4H PRN PRN Reason: Pain (moderate 4-6) Albuterol (Proventil Neb Soln) 2.5 mg NEB Q2H PRN PRN Reason: Shortness Of Breath/wheezing Albuterol/Ipratropium (Duoneb 3.0-0.5 Mg/3 Ml) 3 ml NEB Q6HRRT [facility] [place] Last Admin: 07/16/17 03:10 Dose: 3 ml Bisacodyl (Dulcolax) 5 mg PO DAILY PRN PRN Reason: Constipation Diltiazem HCl (Cardizem Cd) 180 mg PO BEDTIME [facility] [place] Last Admin: 07/15/17 21:56 Dose: 180 mg Docusate Sodium (Colace) 100 mg PO BID PRN PRN Reason: Constipation Enoxaparin Sodium (Lovenox) 40 mg SUBCUT DAILY [facility] [place] Last Admin: 07/15/17 09:24 Dose: 40 mg Fluoxetine HCl (Prozac) 80 mg PO DAILY [facility] [place] Last Admin: 07/15/17 09:23 Dose: 80 mg Guaifenesin/Phenylephrine HCl (Robitussin Dm) 10 ml PO QID PRN PRN Reason: cough Hydralazine HCl (Apresoline) 10 mg IVPUSH Q6H PRN PRN Reason: Hypertension Hydrochlorothiazide (Hydrochlorothiazide) 25 mg PO DAILY [facility] [place] Last Admin: 07/15/17 09:24 Dose: 25 mg Levofloxacin/Dextrose 750 mg/ (Premix) 150 mls @ 100 mls/hr IV Q24H [facility] [place] Last Admin: 07/16/17 05:10 Dose: 100 mls/hr Azithromycin 500 mg/ Sodium (Chloride) 250 mls @ 250 mls/hr IV Q24H [facility] [place] Last Admin: 07/15/17 11:50 Dose: 250 mls/hr Lorazepam (Ativan) 0 mg IVPUSH Q4H PRN; Protocol PRN Reason: withdrawl Lorazepam (Ativan) 2 mg IVPUSH Q4H PRN PRN Reason: Seizures Losartan Potassium (Cozaar) 100 mg PO DAILY [facility] [place] Last Admin: 07/15/17 09:24 Dose: 100 mg Losartan Potassium (Cozaar) 50 mg PO DAILY [facility] [place] Last Admin: 07/15/17 09:22 Dose: 50 mg Magnesium Sulfate (Pharmacy To Dose - Magnesium Replacement) 0 dose .XX ASDIRECTED PRN PRN Reason: RX TO WATCH MAG LEVELS Metoprolol Succinate (Toprol Xl) 50 mg PO DAILY [facility] [place] Last Admin: 07/15/17 09:23 Dose: 50 mg Metoprolol Tartrate (Lopressor) 5 mg IVPUSH Q4H PRN PRN Reason: Tachycardia Mometasone Furoate/Formoterol Fumar (Dulera 200-5 Mcg) 2 puff IH BID [facility] [place] Last Admin: 07/15/17 20:24 Dose: 2 puff Ondansetron HCl (Zofran) 4 mg IV Q6H PRN PRN Reason: Nausea/Vomiting Ondansetron HCl (Zofran Odt) 4 mg PO Q6H PRN PRN Reason: nausea, able to take PO Pantoprazole Sodium (Protonix) 40 mg PO BEDTIME [facility] [place] Last Admin: 07/15/17 21:56 Dose: 40 mg Polyethylene Glycol (Miralax) 17 gm PO DAILY PRN PRN Reason: Constipation Potassium Chloride (Pharmacy To Dose - Potassium Replacement) 0 dose .XX ASDIRECTED PRN PRN Reason: RX TO WATCH K LEVELS Saccharomyces Boulardii (Florastor) 250 mg PO DAILY [facility] [place] Last Admin: 07/15/17 09:22 Dose: 250 mg Senna/Docusate Sodium (Senna Plus) 1 tab PO BID PRN PRN Reason: Constipation Sodium Chloride (Saline Flush) 10 ml FLUSH ASDIRECTED PRN PRN Reason: Keep Vein Open Last Admin: 07/14/17 08:02 Dose: 10 ml Temazepam (Restoril) 15 mg PO BEDTIME PRN PRN Reason: Sleep Last Admin: 07/15/17 21:59 Dose: 15 mg Discontinued Medications Acetaminophen (Tylenol) 975 mg PO NOW ONE Stop: 07/14/17 05:52 Last Admin: 07/14/17 06:11 Dose: 975 mg Albuterol/Ipratropium (Duoneb 3.0-0.5 Mg/3 Ml) 3 ml NEB ONETIME ONE Stop: 07/14/17 05:50 Last Admin: 07/14/17 06:03 Dose: 3 ml Azithromycin (Zithromax) 500 mg IV Q24H [facility] [place] Levofloxacin/Dextrose 750 mg/ (Premix) 150 mls @ 100 mls/hr IV ONETIME ONE Stop: 07/14/17 07:19 Last Admin: 07/14/17 06:33 Dose: 100 mls/hr Sodium Chloride (Normal Saline) 1,000 mls @ 125 mls/hr IV ASDIRECTED [place] Last Admin: 07/14/17 06:11 Dose: 125 mls/hr Sodium Chloride (Normal Saline) 250 mls @ 80 mls/hr IV ASDIRECTED [place] Last Admin: 07/14/17 08:02 Dose: 80 mls/hr Sodium Chloride (Normal Saline) 1,000 mls @ 100 mls/hr IV ASDIRECTED [facility] [place] Stop: 07/14/17 21:44 Last Admin: 07/14/17 17:03 Dose: 100 mls/hr Iopamidol (Isovue-370 (76%)) 100 ml IVPUSH ONETIME ONE Stop: 07/14/17 07:40 Last Admin: 07/14/17 08:02 Dose: 100 ml Iopamidol (Isovue-370 (76%)) 50 ml IVPUSH ONETIME ONE Stop: 07/14/17 07:40 Last Admin: 07/14/17 08:02 Dose: 50 ml Lorazepam (Ativan) 0 mg IVPUSH Q4H PRN; Protocol PRN Reason: withdrawl Magnesium Oxide (Magnesium Oxide) 800 mg PO ONETIME ONE Stop: 07/15/17 09:01 Last Admin: 07/15/17 09:22 Dose: 800 mg Potassium Chloride (Klor-Con M20) 40 meq PO Q4H [facility] [place] Stop: 07/15/17 13:01 Last Admin: 07/15/17 13:55 Dose: 40 meq - Exam Quality Assessment: DVT Prophylaxis General: Alert, Oriented, Cooperative, No Acute Distress HEENT: Pupils Equal, Pupils Reactive, EOMI, Mucous Membr. Moist/[place] Neck: Supple Lungs: Clear to Auscultation, Normal Respiratory Effort, Decreased Breath Sounds Cardiovascular: Regular Rate, Regular Rhythm GI/Abdominal Exam: Normal Bowel Sounds, Soft, Non-Tender, No Organomegaly, No Distention (Male) Exam: Deferred Back Exam: Normal Inspection, Full Range of Motion Extremities: Normal Inspection, Normal Range of Motion, Non-Tender, No Pedal Edema, Normal Capillary Refill Peripheral Pulses: 2+: Radial (L), Radial (R), Posterior Tibial (L), Posterior Tibial (R), Dorsalis Pedis (L), Dorsalis Pedis (R) Skin: Warm, Dry, Intact Neurological: No New Focal Deficit Psy/Mental Status: Alert, Normal Affect, Normal Mood - Problem List & Annotations (1) Hypoxia SNOMED Code(s): 094856581 Code(s): R09.02 - HYPOXEMIA Status: Acute Priority: High Current Visit : Yes (2) Pneumonia SNOMED Code(s): 743218296 Code(s): J18.9 - PNEUMONIA, UNSPECIFIED ORGANISM Status: Acute Priority: High Current Visit: Yes Qualifiers: Pneumonia type: due to unspecified organism Laterality: bilateral Lung location: unspecified part of lung Qualified Code(s): J18.9 - Pneumonia, unspecified organism (3) Asthma SNOMED Code(s): 910727115 Code(s): J45.909 - UNSPECIFIED ASTHMA, UNCOMPLICATED Status: Chronic Priority: High Current Visit: Yes Qualifiers: Asthma severity: moderate Asthma persistence: unspecified Asthma complication type: with acute exacerbation Qualified Code(s): J45.901 - Unspecified asthma with (acute) exacerbation (4) Alcohol abuse SNOMED Code(s): 58161237 Code(s): F10.10 - ALCOHOL ABUSE, UNCOMPLICATED Status: Chronic Priority: Medium Current Visit: No (5) Anxiety SNOMED Code(s): 03013832 Code(s): F41.9 - ANXIETY DISORDER, UNSPECIFIED Status: Chronic Priority: Medium Current Visit: No (6) GERD (gastroesophageal reflux disease) SNOMED Code(s): 721744738 Code(s): K21.9 - GASTRO-ESOPHAGEAL REFLUX DISEASE WITHOUT ESOPHAGITIS Status: Chronic Priority: Medium Current Visit: No Qualifiers: Esophagitis presence: esophagitis presence not specified Qualified Code(s) : K21.9 - Gastro-esophageal reflux disease without esophagitis (7) Hypertension SNOMED Code(s): 59030100 Code(s): I10 - ESSENTIAL (PRIMARY) HYPERTENSION Status: Chronic Priority : Medium Current Visit: No Qualifiers: Hypertension type: unspecified Qualified Code(s): I10 - Essential (primary ) hypertension (8) Hypokalemia SNOMED Code(s): 98112125 Code(s): E87.6 - HYPOKALEMIA Status: Acute Priority: High Current Visit : Yes (9) Hypomagnesemia SNOMED Code(s): 244132317 Code(s): E83.42 - HYPOMAGNESEMIA Status: Acute Priority: High Current Visit: Yes - Problem List Review Problem List Initiated/Reviewed/Updated: Yes - My Orders Last 24 Hours: My Active Orders 07/15/17 09:00 Enoxaparin [Lovenox] 40 mg SUBCUT DAILY FLUoxetine [PROzac] 80 mg PO DAILY Hydrochlorothiazide 25 mg PO DAILY Losartan [Cozaar] 100 mg PO DAILY Losartan [Cozaar] 50 mg PO DAILY Metoprolol Succinate [Toprol XL] 50 mg PO DAILY Saccharomyces Boulardii [Florastor] 250 mg PO DAILY 07/15/17 13:46 Up ad Joanne [RC] ASDIRECTED 07/16/17 08:00 Chest 2V [CR] Routine 07/17/17 05:11 BASIC METABOLIC PANEL,BMP [CHEM] AM CBC WITH AUTO DIFF [HEME] AM CRP [C-REACTIVE PROTEIN] [CHEM] AM MAGNESIUM [CHEM] AM 07/18/17 05:11 BASIC METABOLIC PANEL,BMP [CHEM] AM CBC WITH AUTO DIFF [HEME] AM CRP [C-REACTIVE PROTEIN] [CHEM] AM MAGNESIUM [CHEM] AM - Plan Plan:: I/P: Acute: PNA -Hospitalized 06/28-06/30 for pneumonia -Sputum culture negative at that time, Negative respiratory viral panel -Discharged home on medrol dosepak and 5 day course of azithrmoycin -Reports fever, weakness, productive cough, SOB, low oxygen saturations -Oxygen saturations 78% at home and 80% in ED -CXR shows bilateral diffuse parenchymal densities -CTA on 07/14/17: 1. Patchy areas of rectal density throughout both sides of the chest. Findings most likely represent multifocal pneumonia. 2. No findings of pulmonary embolism. 3. Moderately large hiatal hernia -Sputum culture - pending, initial shows Moderate gram positive diplococci -Mycoplasma, strep pneumo and viral respiratory panel negative -CRP 3.8-->14.3-->7.2 -WBC 15.7-->6.39-->5.27 -Lactic acid 1.4 -Levaquin 750 mg IV given in ED - continue Q24 -Start azithromycin -IS/Acapella/RT/Duonebs -Ambulate -O2 as needed -Repeat CXR 07/16/17 - stable -Blood cultures negative after day 2 [place] exacerbation -Acute on chronic -03/28 above -See orders above -Not wheezing - will hold off steroid for now Hypokalemia -Potassium 3.7-->3.0-->3.2 -Pharmacy to monitor and supplement Hypomagnesesmia -Magnesium 1.7-->1.6 -Pharmacy to monitor and supplement Chronic: ETOH use -Reports 5 drinks per day 7 days a week -CIWA protocol - have been 0-1 thus far -Ativan for seizures and seizure precautions -Last visit CIWAs were 0-1 throughout stay -Liver enzymes WNL -No need for SW/CM/Psych/LAC at this time HTN GERD Anxiety Plan: Admit to medical floor on telemetry Home medications as ordered Other orders as above Routine AM labs DVT prophylaxis: Lovenox GI prophylaxis: Home PPI PT/OT - discontinue, ambulating without difficulty Code status: Full code; PCP: Dr. Campos
[2017-07-16] MEDS: Formoterol/Mometasone 200-5 MCG 8.8 GM Inhaler IH SCH ×2 (08:10→20:01)
[2017-07-16] MEDS: Enoxaparin 40 MG/0.4 ML Syringe SUBCUT SCH (08:42)
[2017-07-16] MEDS: Losartan 25 MG Tab PO SCH (08:43)
[2017-07-16] MEDS: Potassium Chloride 20 MEQ Tab.ER PO SCH ×2 (08:43→11:55)
[2017-07-16] MEDS: FLUoxetine 20 MG Cap PO SCH (08:43)
[2017-07-16] MEDS: Losartan 100 MG Tab PO SCH (08:44)
[2017-07-16] MEDS: Metoprolol Succinate 50 MG Tab.ER PO SCH (08:44)
[2017-07-16] MEDS: Hydrochlorothiazide 25 MG Tab PO SCH (08:44)
[2017-07-16] MEDS: Saccharomyces Boulardii (Probiotic) 250 MG Cap PO SCH (08:44)
[2017-07-16] MEDS ORDERED: Magnesium Sulfate/Water 2 GM in Premix Bag 1 BAG IV ONE (09:00)
--- NOTE | 2017-07-16 09:21 | CR ---
Chest: Two views of the chest were obtained. Comparison: Prior chest x-ray of 07/14/[address] of 07/14/17. Patchy areas of increased density are seen on both sides of the chest believed to be stable from prior imaging studies. No new pulmonary densities are seen. Heart size and mediastinum appear within normal limits. Moderately large hiatal hernia is seen. Impression: 1. Patchy areas of increased density on both sides of the chest believed to be fairly stable. No worsening is seen from prior exam. 2. Stable hiatal hernia. Diagnostic code #3
[2017-07-16] MEDS: Azithromycin 500 MG in Sodium Chloride 0.9% 250 ML IV SCH (11:54)
[2017-07-16] MEDS: Pantoprazole 40 MG Tab.CR PO SCH (21:03)
[2017-07-16] MEDS: Diltiazem 180 MG Cap.CD PO SCH (21:03)
[2017-07-16] MEDS: Temazepam 15 MG Cap PO PRN (21:07)
[2017-07-17] MEDS: Albuterol/Ipratropium 3.0-0.5 MG/3 ML Neb Soln NEB SCH ×2 (02:58→09:22)
[2017-07-17] MEDS: Levofloxacin/Dextrose 5%-Water 750 MG in Premix Bag 1 BAG IV SCH (06:21)
--- NOTE | 2017-07-17 08:00 | PCM.DCSUM1 ---
Discharge Summary - Hospital Course HPI Initial Comments: Hector Leslie is a 62 yo male who presents to our ED today (07/14/17) with cough, fever, SOB, chills, and low oxygen saturations. He was recently hospitalized 06/27-06/30 with pneumonia. At that time he was treated with Rocephin, azithromycin, and IV steroids. His sputum culture was negative and he was sent home with a medrol Dosepak and 5 day azithromycin course. He had been doing ok and the began to cough a few days prior. He does have a history of asthma. Denies chest pain and does not smoke. Oxygen saturations at home were around 78 % and upon arrival they were 80%. He does report he did follow-up with his PCP after his last discharge and a CRX was obtained however nothing was changed with his plan of care. In the ED temperature 100.5. Pulse 114. Respirations 26. Blood pressure 161/ 93. Pulse ox 91%. Labs are obtained: CBC is elevated at 15.7. Hemoglobin 16.0. Hematocrit 45.7. He is normocytic. Platelets 332,000. Neutrophils are elevated at 81.1%. Sodium 136. Potassium 3.7. Chloride 98. Carbon dioxide 27. Anion gap is on the high end of normal at 14.7. BUN is 16. Creatinine 1.3. EGFR is 56. Glucose 112. Lactic acid 1.4. Calcium 8.5. Bilirubin 0.8. Liver enzymes looked good with AST at 22, ALT at 36. Alkaline phosphatase 101. Total protein 6.8. Albumin is low at 2.9. He was started onIV [id number] mg and Levaquin. He was also given 975 mg Tylenol and a DuoNeb. Blood cultures were obtained. His chest x-ray was obtained and looked very similar to last time he was admitted. This is pending radiologist read. ChestCTA was obtained and interpreted by Dr. Gil as "1. Patchy areas of parenchymal density throughout both sides of the chest. Findings most likely represent multifocal pneumonia. 2. No findings of pulmonary embolism. 3. Moderately large hiatal hernia." Sputum culture is ordered. He carries a history of: HTN, GERD, Anxiety. He was never a smoker. He is subsequently admitted to the medical floor on telemetry. He is a full code. His PCP is Dr. Campos. - Discharge Data Discharge Date: 07/17/17 (Admit date:07/14/17) Discharge Disposition: Home, Self-Care 01 Condition: Good - Discharge Diagnosis/Problem(s) (1) Hypoxia SNOMED Code(s): 389895273 ICD Code: R09.02 - HYPOXEMIA Status: Resolved Priority: High Current Visit: Yes (2) Pneumonia SNOMED Code(s): 549364909 ICD Code: J18.9 - PNEUMONIA, UNSPECIFIED ORGANISM Status: Acute Priority : High Current Visit: Yes Qualifiers: Pneumonia type: due to unspecified organism Laterality: bilateral Lung location: unspecified part of lung Qualified Code(s): J18.9 - Pneumonia, unspecified organism (3) Asthma SNOMED Code(s): 803956819 ICD Code: J45.909 - UNSPECIFIED ASTHMA, UNCOMPLICATED Status: Chronic Priority: High Current Visit: Yes Qualifiers: Asthma severity: moderate Asthma persistence: unspecified Asthma complication type: with acute exacerbation Qualified Code(s): J45.901 - Unspecified asthma with (acute) exacerbation (4) Alcohol abuse SNOMED Code(s): 71901311 ICD Code: F10.10 - ALCOHOL ABUSE, UNCOMPLICATED Status: Chronic Priority : Medium Current Visit: No (5) Anxiety SNOMED Code(s): 32707809 ICD Code: F41.9 - ANXIETY DISORDER, UNSPECIFIED Status: Chronic Priority : Medium Current Visit: No (6) GERD (gastroesophageal reflux disease) SNOMED Code(s): 879330609 ICD Code: K21.9 - GASTRO-ESOPHAGEAL REFLUX DISEASE WITHOUT ESOPHAGITIS Status: Chronic Priority: Medium Current Visit: No Qualifiers: Esophagitis presence: esophagitis presence not specified Qualified Code(s) : K21.9 - Gastro-esophageal reflux disease without esophagitis (7) Hypertension SNOMED Code(s): 73100952 ICD Code: I10 - ESSENTIAL (PRIMARY) HYPERTENSION Status: Chronic Priority : Medium Current Visit: No Qualifiers: Hypertension type: unspecified Qualified Code(s): I10 - Essential (primary ) hypertension (8) Hypokalemia SNOMED Code(s): 71405726 ICD Code: E87.6 - HYPOKALEMIA Status: Acute Priority: High Current Visit: Yes (9) Hypomagnesemia SNOMED Code(s): 796021959 ICD Code: E83.42 - HYPOMAGNESEMIA Status: Acute Priority: High Current Visit: Yes - Patient Summary/Data Consults: Consultations 07/14/17 10:13 Respiratory Care Assess and Treatment [CONS] Routine Labs Pending at D/C: None Recommended Follow-up Testing/Procedures: Follow-up with PCP within 7-10 days Hospital Course: I/P: Acute: PNA -Hospitalized 06/28-06/30 for pneumonia -Sputum culture negative at that time, Negative respiratory viral panel -Discharged home on medrol dosepak and 5 day course of azithrmoycin -Reports fever, weakness, productive cough, SOB, low oxygen saturations -Oxygen saturations 78% at home and 80% in ED -CXR shows bilateral diffuse parenchymal densities -CTA on 07/14/17: 1. Patchy areas of rectal density throughout both sides of the chest. Findings most likely represent multifocal pneumonia. 2. No findings of pulmonary embolism. 3. Moderately large hiatal hernia -Sputum culture - normal respiratory alena -Mycoplasma, strep pneumo and viral respiratory panel negative -CRP 3.8-->14.3-->7.2-->4.7 -WBC 15.7-->6.39-->5.27-->4.39 -Lactic acid 1.4 -Levaquin 750 mg IV given in ED - continue Q24 -Start azithromycin --> stop at discharge -IS/Acapella/RT/Duonebs -Ambulate -O2 as needed -Repeat CXR 07/16/17 - stable -Blood cultures negative after day 3 [place] exacerbation -Acute on chronic -2/2 above -See orders above -Not wheezing - will hold off steroid for now Hypomagnesesmia -Magnesium 1.7-->1.6-->1.7 -Pharmacy to monitor and supplement Hypokalemia, resolved -Potassium 3.7-->3.0-->3.2-->3.5 -Pharmacy to monitor and supplement Chronic: ETOH use -Reports 5 drinks per day 7 days a week -CIWA protocol - have been 0-1 thus far -Ativan for seizures and seizure precautions -Last visit CIWAs were 0-1 throughout stay -Liver enzymes WNL -No need for SW/CM/Psych/LAC at this time HTN GERD Anxiety Plan: Admit to medical floor on telemetry Home medications as ordered Other orders as above Routine AM labs DVT prophylaxis: Lovenox GI prophylaxis: Home PPI PT/OT - discontinue, ambulating without difficulty Code status: Full code; PCP: Dr. Andres Mendoza Hector did well. His WBC trended downward. His CRP had a quick spike and then began to trend downward. He was able to be weaned off O2. His magnesium and potassium were supplemented here. His magenesium remains low and he will be sent home with supplementation. This should be followed -up on by PCP to see if he needs continued supplementation. His pneumonia workup was essentially negative. We did have some difficulty getting a good sputum culture as he has had some difficulty coughing up anything. We were finally able to obtain a good sample which contained nothing more than normal respiratory alena. He will be sent home today on a 3 day Levaquin course and magnesium supplementation. He should follow-up with his PCP within 10-14 days of discharge , sooner if needed. Recommend a follow-up CXR at that time. He should continue to use his IS and acapella as well. We are also recommending an outpatient PFT after all symptoms resolve. Of note: his BP has been a bit high here however he has been quite anxious and under a lot of stress. His PCP can investigate this further. - Patient Instructions Diet: Heart Healthy Diet Activity: As Tolerated Notify Provider of: Fever, Increased Pain, Nausea and/or Vomiting (worsening shortness of breath ) - Discharge Plan Prescriptions/Med Rec: Albuterol Sulfate [Proair Hfa] 8.5 gm IH QID PRN #1 hfa.[id number].ad PRN Reason: Shortness Of Breath Levofloxacin [Levaquin] 750 mg PO DAILY #3 tab Magnesium Oxide [Magnesium] 400 mg PO DAILY #5 capsule Saccharomyces Boulardii [Florastor] 250 mg PO DAILY #30 cap Home Medications: Home Meds Albuterol [Ventolin HFA] 2 puff INH Q4H PRN 06/27/17 [History] Diltiazem [Tiazac] 180 mg PO BEDTIME 06/27/17 [History] FLUoxetine [PROzac] 80 mg PO DAILY 06/27/17 [History] Fluticasone/Salmeterol [Advair 250-50] 1 puff INH BID 06/27/17 [History] Metoprolol Succinate [Toprol XL 50mg] 50 mg PO DAILY 06/27/17 [History] Omeprazole [priLOSEC OTC] 20 mg PO BEDTIME 06/27/17 [History] Valsartan/Hydrochlorothiazide [Valsartan-Hctz 320-25 mg Tab] 1 tab PO DAILY 06/11 [History] Albuterol Sulfate [Proair Hfa] 8.5 gm IH QID PRN #1 hfa.aer.ad 07/17/17 [Rx] Levofloxacin [Levaquin] 750 mg PO DAILY #3 tab 07/17/17 [Rx] Magnesium Oxide [Magnesium] 400 mg PO DAILY #5 capsule 07/17/17 [Rx] Saccharomyces Boulardii [Florastor] 250 mg PO DAILY #30 cap 07/17/17 [Rx] Patient Handouts: Hypomagnesemia, How to Use a Metered Dose Inhaler, Potassium Content of Foods, Community-Acquired Pneumonia, Adult, [id number] Referrals: Cr Campos Jr, MD [Primary Care Provider] - - Discharge Summary/Plan Comment DC Time >30 min.: Yes (45 mins ) - General Info Date of Service: 07/17/17 Admission Dx/Problem (Free Text: pneumonia Subjective Update: In to see [place]. He is doing well. He has been up walking around his room. He feels good. He has been weaned off oxygen. No patient or nursing concerns. He will be discharged home today. Functional Status: Reports: Pain Controlled, Tolerating Diet, Ambulating, Urinating, Incentive Spirometry, Other (acapella ). Denies: New Symptoms - Review of Systems General: Reports: No Symptoms. Denies: Fever, Weakness, Fatigue, Malaise HEENT: Reports: No Symptoms. Denies: Eye Pain, Sinus Congestion, Sore Throat Pulmonary: Reports: No Symptoms. Denies: Shortness of Breath, Cough, Sputum, Wheezing Cardiovascular: Reports: No Symptoms. Denies: Chest Pain, Palpitations, Dyspnea on Exertion, Lightheadedness Gastrointestinal: Reports: No Symptoms. Denies: Abdominal Pain, Constipation, Diarrhea, Nausea, Vomiting Genitourinary: Reports: No Symptoms. Denies: Dysuria, Frequency, Burning, Pain Musculoskeletal: Reports: No Symptoms Skin: Reports: No Symptoms Neurological: Reports: No Symptoms Psychiatric: Reports: No Symptoms - Patient Data Vitals - Most Recent: Last Vital Signs Temp 97.9 F 07/17/17 03:10 Pulse 75 07/17/17 03:10 Resp 22 H 07/17/17 03:10 BP 140/85 07/17/17 03:10 Pulse Ox 96 07/17/17 03:10 Weight - Most Recent: 226 lb 4.8 oz I&O - Last 24 hours: Intake & Output 07/16/17 07/17/17 07/17/17 22:59 06:59 14:59 Intake Total 2520 500 Output Total 1100 1500 Balance 1420 -1000 Lab Results - Last 24 hrs: Laboratory Results - last 24 hr 07/17/17 07/17/17 Range/Units 05:38 05:38 WBC 4.39 (4.23-9.07) K/mm3 RBC 4.44 L (4.63-6.08) M/mm3 Hgb 13.9 (13.7-17.5) gm/L Hct 42.2 (40.1-51.0) % MCV 95.0 H (79.0-92.2) fl MCH 31.3 (25.7-32.2) pg MCHC 32.9 (32.2-35.5) g/dl RDW Std Deviation 43.4 (35.1-43.9) fL Plt Count 276 (163-337) K/mm3 MPV 9.5 (9.4-12.3) fl Neut % (Auto) 61.9 (34.0-67.9) % Lymph % (Auto) 28.5 (21.8-53.1) % [place] % (Auto) 7.1 (5.3-12.2) % Eos % (Auto) 2.1 (0.8-7.0) Baso % (Auto) 0.2 (0.1-1.2) % Neut # (Auto) 2.72 (1.78-5.38) K/mm3 Lymph # (Auto) 1.25 L (1.32-3.57) K/mm3 [place] # (Auto) 0.31 (0.30-0.82) K/mm3 Eos # (Auto) 0.09 (0.04-0.54) K/mm3 Baso # (Auto) 0.01 (0.01-0.08) K/mm3 Sodium 139 (136-145) mEq/L Potassium 3.5 (3.5-5.1) mEq/L Chloride 106 (98-107) mEq/L Carbon Dioxide 26 (21-32) mEq/L Anion Gap 10.5 (5-15) BUN 9 (7-18) mg/dL Creatinine 1.0 (0.7-1.3) mg/dL Est Cr Clr Drug Dosing 81.11 mL/min Estimated GFR (MDRD) > 60 (>60) mL/min BUN/Creatinine Ratio 9.0 L (14-18) Glucose 101 (74-106) mg/dL Calcium 8.8 (8.5-10.1) mg/dL Magnesium 1.7 L (1.8-2.4) mg/dl C-Reactive Protein 4.7 H* (<1.0) mg/dL CODIE Results - Last 24 hrs: Microbiology 07/14/17 06:25 Aerobic Blood Culture - Preliminary Blood - Venous - Lab Draw NO GROWTH AFTER 3 DAYS Anaerobic Blood Culture - Preliminary NO GROWTH AFTER 3 DAYS 07/14/17 06:15 Aerobic Blood Culture - Preliminary Blood - Venous NO GROWTH AFTER 3 DAYS Anaerobic Blood Culture - Preliminary NO GROWTH AFTER 3 DAYS 07/14/17 12:42 Gram Stain - Final Sputum - Expectorated Sputum Culture - Final NORMAL RESPIRATORY ALENA 2 DAYS Med Orders - Current: Current Medications Acetaminophen (Tylenol) 650 mg PO Q4H PRN PRN Reason: Pain (Mild 1-3)/fever Last Admin: 07/16/17 21:06 Dose: 650 mg Hydrocodone Bitart/Acetaminophen ([place] 325-5 Mg) 1 tab PO Q4H PRN PRN Reason: Pain (moderate 4-6) Albuterol (Proventil Neb Soln) 2.5 mg NEB Q2H PRN PRN Reason: Shortness Of Breath/wheezing Albuterol/Ipratropium (Duoneb 3.0-0.5 Mg/3 Ml) 3 ml NEB Q6HRRT [facility] Last Admin: 07/17/17 02:58 Dose: 3 ml Bisacodyl (Dulcolax) 5 mg PO DAILY PRN PRN Reason: Constipation Diltiazem HCl (Cardizem Cd) 180 mg PO BEDTIME [facility] Last Admin: 07/16/17 21:03 Dose: 180 mg Docusate Sodium (Colace) 100 mg PO BID PRN PRN Reason: Constipation Enoxaparin Sodium (Lovenox) 40 mg SUBCUT DAILY [facility] Last Admin: 07/16/17 08:42 Dose: 40 mg Fluoxetine HCl (Prozac) 80 mg PO DAILY [facility] Last Admin: 07/16/17 08:43 Dose: 80 mg Guaifenesin/Phenylephrine HCl (Robitussin Dm) 10 ml PO QID PRN PRN Reason: cough Hydralazine HCl (Apresoline) 10 mg IVPUSH Q6H PRN PRN Reason: Hypertension Hydrochlorothiazide (Hydrochlorothiazide) 25 mg PO DAILY [facility] Last Admin: 07/16/17 08:44 Dose: 25 mg Levofloxacin/Dextrose 750 mg/ (Premix) 150 mls @ 100 mls/hr IV Q24H [facility] Last Admin: 07/17/17 06:21 Dose: 100 mls/hr Azithromycin 500 mg/ Sodium (Chloride) 250 mls @ 250 mls/hr IV Q24H [facility] Last Admin: 07/16/17 11:54 Dose: 250 mls/hr Lorazepam (Ativan) 0 mg IVPUSH Q4H PRN; Protocol PRN Reason: withdrawl Lorazepam (Ativan) 2 mg IVPUSH Q4H PRN PRN Reason: Seizures Losartan Potassium (Cozaar) 100 mg PO DAILY [facility] Last Admin: 07/16/17 08:44 Dose: 100 mg Losartan Potassium (Cozaar) 50 mg PO DAILY [facility] Last Admin: 07/16/17 08:43 Dose: 50 mg Magnesium Sulfate (Pharmacy To Dose - Magnesium Replacement) 0 dose .XX ASDIRECTED PRN PRN Reason: RX TO WATCH MAG LEVELS Metoprolol Succinate (Toprol Xl) 50 mg PO DAILY [facility] Last Admin: 07/16/17 08:44 Dose: 50 mg Metoprolol Tartrate (Lopressor) 5 mg IVPUSH Q4H PRN PRN Reason: Tachycardia Mometasone Furoate/Formoterol Fumar (Dulera 200-5 Mcg) 2 puff IH BID [facility] Last Admin: 07/16/17 20:01 Dose: 2 puff Ondansetron HCl (Zofran) 4 mg IV Q6H PRN PRN Reason: Nausea/Vomiting Ondansetron HCl (Zofran Odt) 4 mg PO Q6H PRN PRN Reason: nausea, able to take PO Pantoprazole Sodium (Protonix) 40 mg PO BEDTIME [facility] Last Admin: 07/16/17 21:03 Dose: 40 mg Polyethylene Glycol (Miralax) 17 gm PO DAILY PRN PRN Reason: Constipation Potassium Chloride (Pharmacy To Dose - Potassium Replacement) 0 dose .XX ASDIRECTED PRN PRN Reason: RX TO WATCH K LEVELS Saccharomyces Boulardii (Florastor) 250 mg PO DAILY [facility] Last Admin: 07/16/17 08:44 Dose: 250 mg Senna/Docusate Sodium (Senna Plus) 1 tab PO BID PRN PRN Reason: Constipation Sodium Chloride (Saline Flush) 10 ml FLUSH ASDIRECTED PRN PRN Reason: Keep Vein Open Last Admin: 07/14/17 08:02 Dose: 10 ml Temazepam (Restoril) 15 mg PO BEDTIME PRN PRN Reason: Sleep Last Admin: 07/16/17 21:07 Dose: 15 mg Discontinued Medications Acetaminophen (Tylenol) 975 mg PO NOW ONE Stop: 07/14/17 05:52 Last Admin: 07/14/17 06:11 Dose: 975 mg Albuterol/Ipratropium (Duoneb 3.0-0.5 Mg/3 Ml) 3 ml NEB ONETIME ONE Stop: 07/14/17 05:50 Last Admin: 07/14/17 06:03 Dose: 3 ml Azithromycin (Zithromax) 500 mg IV Q24H [facility] Levofloxacin/Dextrose 750 mg/ (Premix) 150 mls @ 100 mls/hr IV ONETIME ONE Stop: 07/14/17 07:19 Last Admin: 07/14/17 06:33 Dose: 100 mls/hr Sodium Chloride (Normal Saline) 1,000 mls @ 125 mls/hr IV ASDIRECTED [facility] Last Admin: 07/14/17 06:11 Dose: 125 mls/hr Sodium Chloride (Normal Saline) 250 mls @ 80 mls/hr IV ASDIRECTED [facility] Last Admin: 07/14/17 08:02 Dose: 80 mls/hr Sodium Chloride (Normal Saline) 1,000 mls @ 100 mls/hr IV ASDIRECTED [facility] Stop: 07/14/17 21:44 Last Admin: 07/14/17 17:03 Dose: 100 mls/hr Magnesium Sulfate 2 gm/ Premix 50 mls @ 25 mls/hr IV ONETIME ONE Stop: 07/16/17 10:59 Last Admin: 07/16/17 08:42 Dose: 25 mls/hr Iopamidol (Isovue-370 (76%)) 100 ml IVPUSH ONETIME ONE Stop: 07/14/17 07:40 Last Admin: 07/14/17 08:02 Dose: 100 ml Iopamidol (Isovue-370 (76%)) 50 ml IVPUSH ONETIME ONE Stop: 07/14/17 07:40 Last Admin: 07/14/17 08:02 Dose: 50 ml Lorazepam (Ativan) 0 mg IVPUSH Q4H PRN; Protocol PRN Reason: withdrawl Magnesium Oxide (Magnesium Oxide) 800 mg PO ONETIME ONE Stop: 07/15/17 09:01 Last Admin: 07/15/17 09:22 Dose: 800 mg Potassium Chloride (Klor-Con M20) 40 meq PO Q4H [facility] Stop: 07/15/17 13:01 Last Admin: 07/15/17 13:55 Dose: 40 meq Potassium Chloride (Klor-Con M20) 40 meq PO Q4H [facility] Stop: 07/16/17 12:31 Last Admin: 07/16/17 11:55 Dose: 40 meq - Exam Quality Assessment: Reports: DVT Prophylaxis General: Reports: Alert, Oriented, Cooperative, No Acute Distress HEENT: Reports: Pupils Equal, Pupils Reactive, Mucous Membr. Moist/Gravity Neck: Reports: Supple, Trachea Midline, No JVD Lungs: Reports: Clear to Auscultation, Normal Respiratory Effort, Decreased Breath Sounds. Denies: Crackles, Rales, Rhonchi, Rub, Stridor, Wheezing Cardiovascular: Reports: Regular Rate, Regular Rhythm GI/Abdominal Exam: Normal Bowel Sounds, Soft, Non-Tender, No Organomegaly, No Distention (Male) Exam: Deferred Rectal (Males) Exam: Deferred Back Exam: Reports: Normal Inspection, Full Range of Motion Extremities: Normal Inspection, Normal Range of Motion, Non-Tender, No Pedal Edema, Normal Capillary Refill Skin: Reports: Warm, Dry, Intact Neurological: Reports: No New Focal Deficit Psy/Mental Status: Reports: Alert, Normal Affect, Normal Mood
[2017-07-17] MEDS: Saccharomyces Boulardii (Probiotic) 250 MG Cap PO SCH (08:23)
[2017-07-17] MEDS: FLUoxetine 20 MG Cap PO SCH (08:24)
[2017-07-17] MEDS: Enoxaparin 40 MG/0.4 ML Syringe SUBCUT SCH (08:25)
[2017-07-17] MEDS: Losartan 100 MG Tab PO SCH (08:28)
[2017-07-17] MEDS: Hydrochlorothiazide 25 MG Tab PO SCH (08:28)
[2017-07-17] MEDS: Metoprolol Succinate 50 MG Tab.ER PO SCH (08:29)
[2017-07-17] MEDS: Losartan 25 MG Tab PO SCH (08:29)
[2017-07-17] MEDS: Formoterol/Mometasone 200-5 MCG 8.8 GM Inhaler IH SCH (09:22)
[2017-07-17] MEDS ORDERED: Magnesium Oxide 400 MG Tab PO ONE (10:00)
[2017-07-17] MEDS: Azithromycin 500 MG in Sodium Chloride 0.9% 250 ML IV SCH (10:34)
== END 2017-07-17 13:32 | disposition home or self-care (01) | DRG 139 ==
LOC: JD.ED 05:25 → JD.MS 08:13
PROVIDERS: ADMIT Internal Medicine; ATTEND Internal Medicine
DX: J18.9 Pneumonia, unspecified organism (principal); J45.901 Unspecified asthma with (acute) exacerbation; I10 Essential (primary) hypertension; K21.9 Gastro-esophageal reflux disease without esophagitis; F41.9 Anxiety disorder, unspecified; F10.10 Alcohol abuse, uncomplicated; E87.6 Hypokalemia; Z79.899 Other long term (current) drug therapy; H91.90 Unspecified hearing loss, unspecified ear; Z89.011 Acquired absence of right thumb; R09.02 Hypoxemia
CPT/HCPCS: 36415; 71046; 71046-26; 71275; 71275-26; 80048; 80053; 83605; 83735; 85025; 86140; 86738; 87040; 87070; 87205; 87486; 87581; 87633; 87798; 87899; 94640; 94664; 94667; 94761; 96365; 96366; 97161-GP; 97165-GO; 99285-25; A9270-GY; J0456; J1650; J1956; J3475; J7040; J7050; Q9967

== ENCOUNTER 2019-05-04 22:32 | Emergency (ER) | payer BC ==
--- NOTE | 2019-05-05 02:37 | EDM.PDOC ---
ED HPI GENERAL MEDICAL PROBLEM - General Chief Complaint: Respiratory Problem Stated Complaint: CONGESTION/COLD FOR 6 WKS Time Seen by Provider: 05/05/19 02:21 Source of Information: Reports: Patient History Limitations: Reports: Other (The patient is upset about the long wait) - History of Present Illness INITIAL COMMENTS - FREE TEXT/NARRATIVE: Mr. Leslie is a 63 year old man with a past medical history significant for obesity, hypertension, and untreated anxiety, who now presents to the ED stating that he has had 6 weeks of a cold, including symptoms of rhinorrhea, chest congestion, and a cough occasionally productive of yellowish or colorless sputum. No recent fever or chills. He states that he had a slight sore throat 2 or 3 weeks ago, but none since. No recent ear pain. No recent nausea, vomiting, constipation, or diarrhea. The patient states that he took Mucinex, which did not help. The patient has not seen his PCP regarding his symptoms. It is not entirely clear what precipitated his coming to the ED tonight. The patient states that he was diagnosed with pneumonia in June 2017, and he was afraid that he might have pneumonia again. Here in the ED, the patient is found to be hemodynamically stable, afebrile, saturating 92% on room air. The patient's PCP is Dr. Cr Campos. He received an influenza vaccine this season. Posterior Back Pain Score (Numeric/FACES): 6 - Related Data Allergies Allergy/AdvReac Type Severity Reaction Status Date / Time No Known Allergies Allergy Verified 07/14/17 09:02 Home Meds: Home Meds Albuterol [Ventolin HFA] 2 puff INH Q4H PRN 06/27/17 [History] Diltiazem [Tiazac] 180 mg PO BEDTIME 06/27/17 [History] Fluticasone/Salmeterol [Advair 250-50] 1 puff INH DAILY 06/27/17 [History] Metoprolol Succinate [Toprol XL 50mg] 50 mg PO DAILY 06/27/17 [History] Omeprazole [priLOSEC OTC] 20 mg PO BEDTIME 06/27/17 [History] Valsartan/Hydrochlorothiazide [Valsartan-Hctz 320-25 mg Tab] 1 tab PO DAILY 06/11 [History] Saccharomyces Boulardii [Florastor] 250 mg PO DAILY #30 cap 07/17/17 [Rx] Past Medical History HEENT History: Reports: Hard of Hearing Cardiovascular History: Reports: Hypertension Gastrointestinal History: Reports: GERD Psychiatric History: Reports: Anxiety (untreated) Endocrine/Metabolic History: Reports: Obesity/BMI 30+ - Past Surgical History Musculoskeletal Surgical History: Reports: Amputation (right thumb) Social & Family History - Family History Family Medical History: Noncontributory - Tobacco Use Smoking Status *Q: Former Smoker Tobacco Use Within Last Twelve Months: Smokeless Tobacco (ches "fake tobacco") Years of Tobacco use: 14 Packs/Tins Daily: 2 Month/Year Tobacco Last Used: Quit around 1989 - Caffeine Use Caffeine Use: Reports: Soda Other Caffeine Use: drinks diet coke - Alcohol Use Alcohol Use History: Yes Alcohol Use Frequency: Socially - Recreational Drug Use Recreational Drug Use: No - Living Situation & Occupation Living situation: Reports: , Alone Occupation: Employed ([employer]) ED ROS GENERAL - Review of Systems Review Of Systems: Comprehensive ROS is negative, except as noted in HPI. ED EXAM, GENERAL - Physical Exam Exam: See Below Exam Limited By: No Limitations General Appearance: Alert, WD/WN, No Apparent Distress Eye Exam: Bilateral Eye: EOMI, Normal Inspection Ears: Normal External Exam, Normal Canal, Hearing Grossly Normal, Normal TMs Nose: Normal Inspection, Normal Mucosa, No Blood Throat/Mouth: Normal Inspection, Normal Lips, Normal Teeth, Normal Gums, Normal Oropharynx, Normal Voice, No Airway Compromise Head: Atraumatic, Normocephalic Neck: Normal Inspection, Supple, Non-Tender, Full Range of Motion. No: Lymphadenopathy (L), Lymphadenopathy (R) Respiratory/Chest: No Respiratory Distress, Lungs Clear, Normal Breath Sounds, No Accessory Muscle Use. No: Decreased Breath Sounds, Crackles, Rhonchi, Wheezing, Stridor, Prolonged Expiration Cardiovascular: Normal Peripheral Pulses, Regular Rate, Rhythm, No Edema, No Gallop, No JVD, No Murmur, No Rub Peripheral Pulses: 4+: Radial (L), Radial (R) GI/Abdominal: Normal Bowel Sounds, Soft, Non-Tender, No Organomegaly, No Distention, No Abnormal Bruit, No Mass (Male) Exam: Deferred Rectal (Males) Exam: Deferred Back Exam: Normal Inspection, Full Range of Motion, NT Extremities: Normal Inspection, Normal Range of Motion, No Pedal Edema, Normal Capillary Refill Neurological: Alert, Oriented, Normal Cognition, No Motor/Sensory Deficits Psychiatric: Normal Affect Skin Exam: Warm, Dry, Intact, Normal Color, No Rash Course - Vital Signs Last Recorded V/S: Last Vital Signs Temp 36.8 C 05/04/19 22:45 Pulse 75 05/04/19 22:45 Resp 20 05/04/19 22:45 BP 164/95 H 05/04/19 22:45 Pulse Ox 92 L 05/04/19 22:45 - Orders/Labs/Meds Orders: Active Orders 24 hr Category Date Time Status Chest 2V [CR] Stat Exams 05/04/19 23:46 Taken Labs: Laboratory Tests 05/04/19 05/04/19 Range/Units 23:58 23:58 WBC 5.29 (4.23-9.07) K/mm3 RBC 5.11 (4.63-6.08) M/mm3 Hgb 16.4 D (13.7-17.5) gm/dl Hct 47.8 (40.1-51.0) % MCV 93.5 H (79.0-92.2) fl MCH 32.1 (25.7-32.2) pg MCHC 34.3 (32.2-35.5) g/dl RDW Std Deviation 43.6 (35.1-43.9) fL Plt Count 229 (163-337) K/mm3 MPV 9.5 (9.4-12.3) fl Neut % (Auto) 55.6 (34.0-67.9) % Lymph % (Auto) 30.4 (21.8-53.1) % [place] % (Auto) 11.5 (5.3-12.2) % Eos % (Auto) 2.1 (0.8-7.0) Baso % (Auto) 0.2 (0.1-1.2) % Neut # (Auto) 2.94 (1.78-5.38) K/mm3 Lymph # (Auto) 1.61 (1.32-3.57) K/mm3 [place] # (Auto) 0.61 (0.30-0.82) K/mm3 Eos # (Auto) 0.11 (0.04-0.54) K/mm3 Baso # (Auto) 0.01 (0.01-0.08) K/mm3 Sodium 140 (136-145) mEq/L Potassium 3.0 L (3.5-5.1) mEq/L Chloride 103 (98-107) mEq/L Carbon Dioxide 24 (21-32) mEq/L Anion Gap 16.0 H (5-15) BUN 21 H (7-18) mg/dL Creatinine 1.6 H (0.7-1.3) mg/dL Est Cr Clr Drug Dosing 50.06 mL/min Estimated GFR (MDRD) 44 (>60) mL/min BUN/Creatinine Ratio 13.1 L (14-18) Glucose 103 (80-115) mg/dL Calcium 9.0 (8.5-10.1) mg/dL Total Bilirubin 0.5 (0.2-1.0) mg/dL AST 29 (15-37) U/L ALT 46 (16-63) U/L Alkaline Phosphatase 85 (46-116) U/L Total Protein 7.4 (6.4-8.2) g/dl Albumin 3.4 (3.4-5.0) g/dl Globulin 4.0 gm/dL Albumin/Globulin Ratio 0.9 L (1-2) Meds: Medications Discontinued Medications Generic Name Dose Route Start Last Admin Trade Name Freq PRN Reason Stop Dose Admin Potassium Chloride 40 meq 05/05/19 02:38 05/05/19 02:51 Klor-Con M20 PO 05/05/19 02:39 40 meq ONETIME ONE Administration - Re-Assessments/Exams Free Text/Narrative Re-Assessment/Exam: 05/05/19 02:35 As above, the patient is here for evaluation of 6 weeks of cold-like symptoms including a cough, rhinorrhea, and sensation of chest congestion. A CBC, CMP, and chest x-ray were ordered per the patient's nurse. Two-view chest radiograph appears to be grossly normal. The cardiac silhouette is within normal limits. No pulmonary vascular congestion. No pleural effusions. No focal infiltrate. No pneumothorax. Formal read per the Radiologist pending. The patient CBC is unremarkable. His CMP is remarkable for a potassium depressed at 3.0, and anion gap elevated at 16.0, but with a bicarbonate normal at 24, and a BUN/Cr elevated at 21/1.6, with the remainder of his CMP being unremarkable. Reviewing prior labs, I see that the patient's BUN/Cr was 9/1.0 on 07/17/2017. Based on the above, I will order 40 mEq of oral KCl - a single dose shouldn't be a problem. 05/05/19 02:48 Test results discussed with the patient. With a negative work-up today, he appears to have a viral URI. 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 He is understandably upset that I cannot offer him anything that will realistically help him with his symptoms. This illness will have to run its course. I will discharge the patient home; I see no indication for admission to the hospital. He should stay adequately hydrated, and I will have him discontinue his valsartan/HCTZ for the time being. He will need to follow-up with his PCP to follow-up on his renal function. Departure - Departure Time of Disposition: 02:49 Disposition: Home, Self-Care 01 Condition: Good Clinical Impression: Acute renal failure, Hypokalemia, Viral URI with cough - Discharge Information *PRESCRIPTION DRUG MONITORING PROGRAM REVIEWED*: Not Applicable *COPY OF PRESCRIPTION DRUG MONITORING REPORT IN PATIENT MIRIAM: Not Applicable Instructions: Hypokalemia, Upper Respiratory Infection, Adult, [id number], Preventing Chronic Kidney Disease Referrals: Cr Campos Jr, MD [Primary Care Provider] - Forms: ED Department Discharge Additional Instructions: You were seen in the emergency room for cold-like symptoms, including a cough, runny nose, and chest congestion, for the past 6 weeks. Work-up in the ER included blood work and a chest x-ray. Your blood work found that your potassium was low at 3.0, and your kidney function was impaired, with a BUN/Cr of 21/1.6. They were 9/1.0 on 07/17/2017. The remainder of your work-up was unremarkable. You do not have pneumonia. Based on your history, physical exam, and ER tests, the cause of your cold-like symptoms is most likely a viral illness. Unfortunately, there are no medicines to treat a viral URI - it will have to run its course. As discussed, we recommend that you not take any [id number] cough or cold remedies, as they have been shown to be of no benefit, but do have side effects , such as an upset stomach. With respect to your low potassium level, you were given a single tablet of potassium chloride in the ER. Do not take any additional [id number] potassium chloride. As discussed, we recommend that you discontinue your valsartan/HCTZ, as this is most likely the cause of your kidney damage. Stay adequately hydrated. As discussed, it is very important that you follow-up with your PCP, Dr. Cr Campos, at the next available appointment, in order to have him follow your potassium level and kidney function. Let his administrative assistant receptionist know that you are following up from the ER. If any other problems, please do not hesitate to return to the ER. Sepsis Event Note - Evaluation Sepsis Screening Result: No Definite Risk - Focused Exam Vital Signs: Vital Signs Temp Pulse Resp BP Pulse Ox 05/04/19 22:45 36.8 C 75 20 164/95 H 92 L Date Exam was Performed: 05/05/19 Time Exam was Performed: 06:18 - My Orders Last 24 Hours: My Active Orders 05/04/19 23:46 Chest 2V [CR] Stat - Assessment/Plan Last 24 Hours: My Active Orders 05/04/19 23:46 Chest 2V [CR] Stat
[2019-05-05] MEDS ORDERED: Potassium Chloride 20 MEQ Tab.ER PO ONE (02:38)
--- NOTE | 2019-05-05 07:30 | CR ---
Chest: Two views of the chest were obtained. Comparison: Prior chest x-ray of 07/16/17. Moderate sized hiatal hernia is noted. Slight parenchymal density noted within the right lung base which appears stable. Lungs otherwise are clear with no acute parenchymal change. Heart size is normal. Bony structures show nothing acute. Old healed bilateral rib fractures are noted. Impression: 1. Hiatal hernia and other stable finding. 2. Nothing acute is identified. Diagnostic code #2 This report was dictated in [place] Standard Time
== END 2019-05-05 03:07 | disposition home or self-care (01) ==
LOC: JD.ED 22:32
DX: J06.9 Acute upper respiratory infection, unspecified (principal); E87.6 Hypokalemia; N17.9 Acute kidney failure, unspecified; E66.9 Obesity, unspecified; I10 Essential (primary) hypertension; K21.9 Gastro-esophageal reflux disease without esophagitis; Z79.899 Other long term (current) drug therapy; Z87.891 Personal history of nicotine dependence; Z68.33 Body mass index [BMI] 33.0-33.9, adult
CPT/HCPCS: 36415; 71046; 80053; 85025; 99283; A9270

== ENCOUNTER 2020-01-19 18:05 | Emergency (ER) | payer BC ==
[2020-01-19] MEDS ORDERED: Fluticasone Propionate Nasal Spray 16 GM Bottle NASBOTH ONE (19:07)
--- NOTE | 2020-01-19 19:28 | EDM.PDOC ---
ED HPI GENERAL MEDICAL PROBLEM - General Chief Complaint: Cardiovascular Problem Stated Complaint: HIGH BLOOD PRESSURE Time Seen by Provider: 01/19/20 18:52 Source of Information: Reports: Patient History Limitations: Reports: No Limitations - History of Present Illness INITIAL COMMENTS - FREE TEXT/NARRATIVE: The patient presents from the walk in clinic for hypertension. The reason he went to the walk in clinic is for nasal congestion and sinus pressure. This has been going on for a few weeks. He has no fever, chills, cough, abdominal pain, nausea, or vomiting. He does tell me that he has some left lower chest pain. He has no history of [place] but he does have a history of hypertension. He has not been taking cold medicine that would raise his blood pressure. He has not been sleeping much for the past 3 days. He says he feels anxious and cannot sleep. He also has been drinking more then he should the past couple of days. He quit smoking years ago. His current blood pressure is in the 180s. Onset: Gradual Duration: Week(s): Location: Reports: Chest, Other (sinus pressure) Quality: Reports: Ache Severity: Mild Improves with: Reports: None Worsens with: Reports: None Associated Symptoms: Reports: Chest Pain. Denies: Cough, Fever/Chills, Headaches, Nausea/Vomiting, Shortness of Breath - Related Data Allergies Allergy/AdvReac Type Severity Reaction Status Date / Time No Known Allergies Allergy Verified 01/19/20 18:21 Home Meds: Home Meds Albuterol [Ventolin HFA] 2 puff INH Q4H PRN 06/27/17 [History] Fluticasone/Salmeterol [Advair 250-50] 1 puff INH DAILY 06/27/17 [History] Omeprazole [priLOSEC OTC] 20 mg PO BEDTIME 06/27/17 [History] Fexofenadine [Joy] 60 mg PO DAILY 01/19/20 [History] LORazepam [Ativan] 1 mg PO BEDTIME PRN #6 tablet 01/19/20 [Rx] Losartan/Hydrochlorothiazide [Losartan-HCTZ 100-25 MG] 1 tab PO DAILY 01/19/20 [History] Metoprolol Succinate [Toprol XL 50mg] 50 mg PO DAILY 01/19/20 [History] dilTIAZem HCL [Cardizem Cd] 180 mg PO DAILY 01/19/20 [History] Past Medical History HEENT History: Reports: Hard of Hearing Other HEENT History: c/o ringing in ears and hearing loss bilaterally Cardiovascular History: Reports: Hypertension Respiratory History: Reports: Asthma, Pneumonia, Recurrent Other Respiratory History: recently had pneumonia, discharged June 30 Gastrointestinal History: Reports: GERD Musculoskeletal History: Reports: None Psychiatric History: Reports: Anxiety Endocrine/Metabolic History: Reports: Obesity/BMI 30+ - Past Surgical History GI Surgical History: Reports: Colonoscopy Musculoskeletal Surgical History: Reports: Amputation Other Musculoskeletal Surgeries/Procedures:: right thumb amputation Social & Family History - Family History Family Medical History: No Pertinent Family History - Tobacco Use Tobacco Use Status *Q: Former Tobacco User Used Tobacco, but Quit: Yes Month/Year Tobacco Last Used: 1989 - Caffeine Use Caffeine Use: Reports: None Other Caffeine Use: drinks diet coke - Alcohol Use Days Per Week of Alcohol Use: 7 Number of Drinks Per Day: 5 Total Drinks Per Week: 35 - Recreational Drug Use Recreational Drug Use: No - Living Situation & Occupation Living situation: Reports: , Alone Occupation: Employed ([employer]) ED ROS GENERAL - Review of Systems Review Of Systems: See Below Constitutional: Reports: No Symptoms HEENT: Reports: Other (sinus pressure and congestion) Respiratory: Reports: No Symptoms Cardiovascular: Reports: Chest Pain Endocrine: Reports: No Symptoms GI/Abdominal: Reports: No Symptoms : Reports: No Symptoms ED EXAM, GENERAL - Physical Exam Exam: See Below Exam Limited By: No Limitations General Appearance: Alert, No Apparent Distress Ears: Normal External Exam Nose: Normal Inspection Head: Atraumatic, Normocephalic Neck: Normal Inspection, Supple, Non-Tender Respiratory/Chest: No Respiratory Distress, Lungs Clear, Normal Breath Sounds Cardiovascular: Regular Rate, Rhythm, No Edema, No Murmur GI/Abdominal: Soft, Non-Tender, No Organomegaly, No Mass Extremities: Normal Inspection Neurological: Alert, Oriented, No Motor/Sensory Deficits #1 Interpretation EKG Date: 01/19/20 Time: 19:50 Rhythm: NSR Rate (Beats/Min): 61 [place]: Normal P-Wave: Present QRS: Normal ST-T: Normal QT: Normal Course - Vital Signs Last Recorded V/S: Last Vital Signs Temp 97.4 F 01/19/20 18:18 Pulse 771 H 01/19/20 18:18 Resp 18 01/19/20 18:18 BP 188/103 H 01/19/20 18:18 Pulse Ox 97 01/19/20 18:18 - Orders/Labs/Meds Orders: Active Orders 24 hr Category Date Time Status Cardiac Monitoring [RC] . DIRECTED Care 01/19/20 19:06 Active EKG Documentation Completion [RC] STAT Care 01/19/20 19:07 Active Chest 1V Frontal [CR] Stat Exams 01/19/20 19:07 Taken Labs: Laboratory Tests 01/19/20 01/19/20 Range/Units 19:20 19:20 WBC 4.91 (4.23-9.07) K/mm3 RBC 4.81 (4.63-6.08) M/mm3 Hgb 15.8 (13.7-17.5) gm/dl Hct 45.4 (40.1-51.0) % MCV 94.4 H (79.0-92.2) fl MCH 32.8 H (25.7-32.2) pg MCHC 34.8 (32.2-35.5) g/dl RDW Std Deviation 43.0 (35.1-43.9) fL Plt Count 161 L (163-337) K/mm3 MPV 10.3 (9.4-12.3) fl Neut % (Auto) 59.1 (34.0-67.9) % Lymph % (Auto) 29.9 (21.8-53.1) % [place] % (Auto) 8.8 (5.3-12.2) % Eos % (Auto) 2.0 (0.8-7.0) Baso % (Auto) 0.2 (0.1-1.2) % Neut # (Auto) 2.90 (1.78-5.38) K/mm3 Lymph # (Auto) 1.47 (1.32-3.57) K/mm3 [place] # (Auto) 0.43 (0.30-0.82) K/mm3 Eos # (Auto) 0.10 (0.04-0.54) K/mm3 Baso # (Auto) 0.01 (0.01-0.08) K/mm3 Sodium 140 (136-145) mEq/L Potassium 3.8 (3.5-5.1) mEq/L Chloride 105 (98-107) mEq/L Carbon Dioxide 29 (21-32) mEq/L Anion Gap 9.8 (5-15) BUN 13 (7-18) mg/dL Creatinine 1.0 (0.7-1.3) mg/dL Est Cr Clr Drug Dosing 79.08 mL/min Estimated GFR (MDRD) > 60 (>60) mL/min BUN/Creatinine Ratio 13.0 L (14-18) Glucose 89 (80-115) mg/dL Calcium 8.7 (8.5-10.1) mg/dL Magnesium 1.6 L (1.8-2.4) mg/dl Total Bilirubin 0.5 (0.2-1.0) mg/dL AST 47 H (15-37) U/L ALT 68 H (16-63) U/L Alkaline Phosphatase 98 (46-116) U/L Troponin I < 0.017 (0.00-0.056) ng/mL Total Protein 6.9 (6.4-8.2) g/dl Albumin 3.1 L (3.4-5.0) g/dl Globulin 3.8 gm/dL Albumin/Globulin Ratio 0.8 L (1-2) Meds: Medications Discontinued Medications Generic Name Dose Route Start Last Admin Trade Name Freq PRN Reason Stop Dose Admin Fluticasone Propionate 1 gm 01/19/20 19:07 01/19/20 19:41 Flonase NASBOTH 01/19/20 19:08 1 gram ONETIME ONE Administration - Re-Assessments/Exams Free Text/Narrative Re-Assessment/Exam: 01/19/20 19:28 I ordered an EKG, CXR, labs and some flonase. 01/19/20 20:23 His EKG shows a NSR with nothing acute. His CXR looks good. His CBC looks good. His AST is elevated at 47. His ALT is elevated at 68. His troponin is negative. His BP is coming down. I will have him take the flonase and his antibiotic. I will also give him some ativan for at home to help him sleep. Departure - Departure Time of Disposition: 20:25 Disposition: Home, Self-Care 01 Condition: Good Clinical Impression: Hypertension Qualifiers: Hypertension type: unspecified Qualified Code(s): I10 - Essential (primary) hypertension Insomnia Qualifiers: Insomnia type: unspecified Qualified Code(s): G47.00 - Insomnia, unspecified Sinusitis Qualifiers: Sinusitis location: unspecified location Chronicity: acute Recurrence: non- recurrent Qualified Code(s): J01.90 - Acute sinusitis, unspecified Prescriptions: LORazepam [Ativan] 1 mg PO BEDTIME PRN #6 tablet PRN Reason: Sleep Referrals: Cr Campos Jr, MD [Primary Care Provider] - 1 Week Forms: ED Department Discharge Additional Instructions: Drink plenty of water like eight 8 ounce cups per day. Take your medication as prescribed. Take your antibiotic as prescribed. Use the flonase 2 squirts in each nostril daily. Use the ativan 1mg at night to help you sleep. Have your blood pressure rechecked next week. Please return if you are worse. Sepsis Event Note (ED) - Evaluation Sepsis Screening Result: No Definite Risk - Focused Exam Vital Signs: Vital Signs Temp Pulse Resp BP Pulse Ox 01/19/20 18:18 97.4 F 771 H 18 188/103 H 97 - My Orders Last 24 Hours: My Active Orders 01/19/20 19:06 Cardiac Monitoring [RC] . DIRECTED 01/19/20 19:07 EKG Documentation Completion [RC] STAT Chest 1V Frontal [CR] Stat - Assessment/Plan Last 24 Hours: My Active Orders 01/19/20 19:06 Cardiac Monitoring [RC] . DIRECTED 01/19/20 19:07 EKG Documentation Completion [RC] STAT Chest 1V Frontal [CR] Stat
--- NOTE | 2020-01-24 09:01 | CR ---
PROCEDURE INFORMATION: Exam: XR Chest, 1 View Exam date and time: 01/19/2020 7:06 PM Age: 64 years old Clinical indication: Chest pain; Type not specified TECHNIQUE: Imaging protocol: XR of the chest Views: 1 view. COMPARISON: DX Chest 2V 05/05/2019 12:01 AM FINDINGS: Lungs: Unremarkable. No consolidation. Pleural space: Unremarkable. No pleural effusion. No pneumothorax. Heart/Mediastinum: Small hiatal hernia. Bones/joints: Unremarkable. IMPRESSION: No acute cardiopulmonary disease. Thank you for allowing us to participate in the care of your patient. Dictated and Authenticated by: Emile Patel MD 01/19/2020 9:14 PM Central Time ([place] & [place]) [facility]
== END 2020-01-19 20:50 | disposition home or self-care (01) ==
LOC: JD.ED 18:05
DX: J01.90 Acute sinusitis, unspecified (principal); G47.00 Insomnia, unspecified; I10 Essential (primary) hypertension; J45.909 Unspecified asthma, uncomplicated; K21.9 Gastro-esophageal reflux disease without esophagitis; E66.9 Obesity, unspecified; Z68.33 Body mass index [BMI] 33.0-33.9, adult; Z87.891 Personal history of nicotine dependence
CPT/HCPCS: 36415; 71045; 80053; 83735; 84484; 85025; 93005; 99285; A9270; 93010; 99284

== ENCOUNTER 2022-08-07 15:52 | Inpatient (IN) | payer BC ==
[2022-08-07] MEDS ORDERED: Sodium Chloride 0.9% 10 ML Syringe FLUSH PRN (16:31)
[2022-08-07] MEDS ORDERED: Albuterol/Ipratropium 3.0-0.5 MG/3 ML Neb Soln NEB ONE (16:47)
[2022-08-07 17:20] LABS: BASOPHILS ABSOLUTE AUTO 0.02 K/mm3 (0.01-0.08); BASOPHILS PERCENT AUTO 0.2 % (0.1-1.2); EOSINOPHILS ABSOLUTE AUTO 0.06 K/mm3 (0.04-0.54); EOSINOPHILS PERCENT AUTO 0.5 (0.8-7.0); HEMATOCRIT 49.8 % (40.1-51.0); HEMOGLOBIN 17.2 gm/dl (13.7-17.5); IMMATURE GRAN ABSOLUTE AUTO 0.02 K/mm3 (0.00-0.10); IMMATURE GRAN PERCENT AUTO 0.2 % (<=1.0); LYMPHOCYTES ABSOLUTE AUTO 2.03 K/mm3 (1.32-3.57); LYMPHOCYTES PERCENT AUTO 18.4 % (21.8-53.1); MEAN CORPUSCULAR HEMOGLOBIN 31.2 pg (25.7-32.2); MEAN CORPUSCULAR HGB CONC 34.5 g/dl (32.2-35.5); MEAN CORPUSCULAR VOLUME 90.4 fl (79.0-92.2); MEAN PLATELET VOLUME 9.7 fl (9.4-12.3); MONOCYTES ABSOLUTE AUTO 0.67 K/mm3 (0.30-0.82); MONOCYTES PERCENT AUTO 6.1 % (5.3-12.2); NEUTROPHILS ABSOLUTE AUTO 8.26 K/mm3 (1.78-5.38); NEUTROPHILS PERCENT AUTO 74.6 % (34.0-67.9); PLATELET COUNT,PLT 291 K/mm3 (163-337); RED BLOOD CELL COUNT 5.51 M/mm3 (4.63-6.08); WHITE BLOOD CELL COUNT,WBC 11.06 K/mm3 (4.23-9.07)
[2022-08-07 17:45] LABS: LACTIC ACID 0.9 mmol/L (0.4-2.0)
[2022-08-07 17:47] LABS: A/G RATIO 0.8 (1-2); ALBUMIN 3.5 g/dl (3.4-5.0); ANION GAP 10.2 (5-15); BUN/CREATININE RATIO 13.1 (14-18); C-REACTIVE PROTEIN 4.4 mg/dL (<1.0); CALCIUM 8.7 mg/dL (8.5-10.1); CREATININE 1.3 mg/dL (0.7-1.3); EST CRCL DRUG DOSING (CG) 58.49 mL/min; POTASSIUM,K 3.2 mEq/L (3.5-5.1); PROTEIN TOTAL,TP 7.7 g/dl (6.4-8.2)
[2022-08-07] MEDS ORDERED: cefTRIAXone 1 GM in Sodium Chloride 0.9% 100 ML IV ONE (18:56)
[2022-08-07 19:06] LABS: CORONAVIRUS COVID-19 NAA NEGATIVE (NEGATIVE); INFLUENZA A NAA NEGATIVE (NEGATIVE); RESPIRATORY SYNCYTIAL VIR NAA NEGATIVE (NEGATIVE)
[2022-08-07] MEDS ORDERED: Azithromycin 500 MG in Sodium Chloride 0.9% 250 ML IV ONE (19:10)
[2022-08-07] MEDS ORDERED: Ondansetron 4 MG/2 ML SDV IV PRN (20:25)
[2022-08-07] MEDS ORDERED: Potassium Chloride 20 MEQ Tab.ER PO ONE (20:28)
[2022-08-07] MEDS ORDERED: LORazepam 1 MG Tab PO PRN (20:28)
[2022-08-07] MEDS: Albuterol/Ipratropium 3.0-0.5 MG/3 ML Neb Soln NEB SCH (21:43)
[2022-08-07] MEDS: Famotidine 10 MG Tab PO SCH (22:20)
[2022-08-07] MEDS: Pantoprazole 40 MG Tab.CR PO SCH (22:21)
[2022-08-08] MEDS: Acetaminophen 325 MG Tab PO PRN (04:51)
[2022-08-08 05:07] LABS: HEMATOCRIT 48.9 % (40.1-51.0); HEMOGLOBIN 16.6 gm/dl (13.7-17.5); MEAN CORPUSCULAR HGB CONC 33.9 g/dl (32.2-35.5); MEAN CORPUSCULAR VOLUME 91.4 fl (79.0-92.2); MEAN PLATELET VOLUME 9.8 fl (9.4-12.3); PLATELET COUNT,PLT 291 K/mm3 (163-337); RED BLOOD CELL COUNT 5.35 M/mm3 (4.63-6.08)
[2022-08-08 05:22] LABS: ANION GAP 12.6 (5-15); BUN/CREATININE RATIO 10.8 (14-18); C-REACTIVE PROTEIN 8.5 mg/dL (<1.0); CALCIUM 8.9 mg/dL (8.5-10.1); CREATININE 1.2 mg/dL (0.7-1.3); EST CRCL DRUG DOSING (CG) 63.37 mL/min; POTASSIUM,K 3.6 mEq/L (3.5-5.1)
[2022-08-08] MEDS: Albuterol/Ipratropium 3.0-0.5 MG/3 ML Neb Soln NEB SCH ×3 (06:34→20:15)
[2022-08-08] MEDS ORDERED: Albuterol 0.083% 2.5 MG/3 ML Neb Soln NEB PRN (08:22)
[2022-08-08] MEDS: Rosuvastatin 10 MG Tab PO SCH (08:29)
[2022-08-08] MEDS: Enoxaparin 40 MG/0.4 ML Syringe SUBCUT SCH (08:29)
[2022-08-08] MEDS: Metoprolol Succinate 50 MG Tab.ER PO SCH (08:30)
[2022-08-08] MEDS: guaiFENesin 600 MG Tab.ER PO SCH ×2 (08:30→20:05)
[2022-08-08] MEDS ORDERED: Diltiazem 180 MG Cap.CD PO SCH (09:00)
[2022-08-08] MEDS ORDERED: Pantoprazole 40 MG Tab.CR PO SCH (09:00)
[2022-08-08] MEDS: amLODIPine 5 MG Tab PO SCH ×2 (09:03→10:10)
[2022-08-08] MEDS ORDERED: Azithromycin 500 MG in Sodium Chloride 0.9% 250 ML IV SCH (20:00)
[2022-08-08] MEDS ORDERED: cefTRIAXone 2 GM in Sodium Chloride 0.9% 100 ML IV SCH (20:00)
[2022-08-08] MEDS: Pantoprazole 40 MG Tab.CR PO SCH (20:05)
[2022-08-08] MEDS: Famotidine 10 MG Tab PO SCH (20:05)
[2022-08-09] MEDS ORDERED: Piperacillin/Tazobactam 4.5 GM in Sodium Chloride 0.9% 100 ML IV ONE (01:30)
[2022-08-09] MEDS: Albuterol 0.083% 2.5 MG/3 ML Neb Soln NEB PRN (01:55)
[2022-08-09] MEDS: Albuterol/Ipratropium 3.0-0.5 MG/3 ML Neb Soln NEB SCH ×3 (05:04→20:37)
[2022-08-09 05:12] LABS: HEMATOCRIT 42.9 % (40.1-51.0); HEMOGLOBIN 14.4 gm/dl (13.7-17.5); MEAN CORPUSCULAR HGB CONC 33.6 g/dl (32.2-35.5); MEAN CORPUSCULAR VOLUME 92.5 fl (79.0-92.2); PLATELET COUNT,PLT 248 K/mm3 (163-337); RED BLOOD CELL COUNT 4.64 M/mm3 (4.63-6.08); WHITE BLOOD CELL COUNT,WBC 12.79 K/mm3 (4.23-9.07)
[2022-08-09 06:18] LABS: ANION GAP 13.4 (5-15); BUN/CREATININE RATIO 13.6 (14-18); CREATININE 1.4 mg/dL (0.7-1.3); EST CRCL DRUG DOSING (CG) 54.32 mL/min; POTASSIUM,K 3.4 mEq/L (3.5-5.1)
[2022-08-09] MEDS ORDERED: Potassium Chloride 20 MEQ Tab.ER PO ONE (06:28)
[2022-08-09 06:31] LABS: C-REACTIVE PROTEIN 16.1 mg/dL (<1.0)
[2022-08-09] MEDS: Metoprolol Succinate 50 MG Tab.ER PO SCH (08:06)
[2022-08-09] MEDS: Enoxaparin 40 MG/0.4 ML Syringe SUBCUT SCH (08:06)
[2022-08-09] MEDS: guaiFENesin 600 MG Tab.ER PO SCH ×2 (08:06→21:45)
[2022-08-09] MEDS: Rosuvastatin 10 MG Tab PO SCH (08:06)
[2022-08-09] MEDS: Piperacillin/Tazobactam 4.5 GM in Sodium Chloride 0.9% 100 ML IV SCH ×2 (08:10→17:41)
[2022-08-09] MEDS: Pantoprazole 40 MG Tab.CR PO SCH (21:45)
[2022-08-09] MEDS: Famotidine 10 MG Tab PO SCH (21:45)
[2022-08-10] MEDS: Piperacillin/Tazobactam 4.5 GM in Sodium Chloride 0.9% 100 ML IV SCH ×3 (00:18→17:34)
[2022-08-10 05:21] LABS: HEMATOCRIT 42.3 % (40.1-51.0); HEMOGLOBIN 14.1 gm/dl (13.7-17.5); MEAN CORPUSCULAR HEMOGLOBIN 31.2 pg (25.7-32.2); MEAN CORPUSCULAR HGB CONC 33.3 g/dl (32.2-35.5); MEAN CORPUSCULAR VOLUME 93.6 fl (79.0-92.2); MEAN PLATELET VOLUME 9.8 fl (9.4-12.3); PLATELET COUNT,PLT 254 K/mm3 (163-337); RED BLOOD CELL COUNT 4.52 M/mm3 (4.63-6.08); WHITE BLOOD CELL COUNT,WBC 7.33 K/mm3 (4.23-9.07)
[2022-08-10 05:46] LABS: ANION GAP 10.4 (5-15); CALCIUM 8.6 mg/dL (8.5-10.1); CREATININE 1.1 mg/dL (0.7-1.3); EST CRCL DRUG DOSING (CG) 69.13 mL/min; POTASSIUM,K 3.4 mEq/L (3.5-5.1)
[2022-08-10 06:04] LABS: C-REACTIVE PROTEIN 13.1 mg/dL (<1.0)
[2022-08-10] MEDS ORDERED: Potassium Chloride 20 MEQ Tab.ER PO ONE (06:11)
[2022-08-10] MEDS: Albuterol/Ipratropium 3.0-0.5 MG/3 ML Neb Soln NEB SCH ×3 (07:15→20:46)
[2022-08-10] MEDS: Rosuvastatin 10 MG Tab PO SCH (08:03)
[2022-08-10] MEDS: Enoxaparin 40 MG/0.4 ML Syringe SUBCUT SCH (08:03)
[2022-08-10] MEDS: guaiFENesin 600 MG Tab.ER PO SCH ×2 (08:03→20:58)
[2022-08-10] MEDS: amLODIPine 5 MG Tab PO SCH (08:04)
[2022-08-10] MEDS: Metoprolol Succinate 50 MG Tab.ER PO SCH (08:04)
[2022-08-10] MEDS: Albuterol 0.083% 2.5 MG/3 ML Neb Soln NEB PRN (17:59)
[2022-08-10] MEDS: Pantoprazole 40 MG Tab.CR PO SCH (20:58)
[2022-08-10] MEDS: Famotidine 10 MG Tab PO SCH (20:58)
[2022-08-11] MEDS: Piperacillin/Tazobactam 4.5 GM in Sodium Chloride 0.9% 100 ML IV SCH ×3 (00:28→17:43)
[2022-08-11] MEDS: Albuterol 0.083% 2.5 MG/3 ML Neb Soln NEB PRN (00:42)
[2022-08-11 05:27] LABS: HEMATOCRIT 43.5 % (40.1-51.0); HEMOGLOBIN 14.2 gm/dl (13.7-17.5); MEAN CORPUSCULAR HEMOGLOBIN 30.6 pg (25.7-32.2); MEAN CORPUSCULAR HGB CONC 32.6 g/dl (32.2-35.5); MEAN CORPUSCULAR VOLUME 93.8 fl (79.0-92.2); MEAN PLATELET VOLUME 9.5 fl (9.4-12.3); PLATELET COUNT,PLT 299 K/mm3 (163-337); RED BLOOD CELL COUNT 4.64 M/mm3 (4.63-6.08); WHITE BLOOD CELL COUNT,WBC 7.16 K/mm3 (4.23-9.07)
[2022-08-11 05:41] LABS: ANION GAP 6.5 (5-15); C-REACTIVE PROTEIN 6.1 mg/dL (<1.0); CALCIUM 8.7 mg/dL (8.5-10.1); EST CRCL DRUG DOSING (CG) 76.04 mL/min; MAGNESIUM 1.9 mg/dL (1.8-2.4); POTASSIUM,K 3.5 mEq/L (3.5-5.1)
[2022-08-11] MEDS: Albuterol/Ipratropium 3.0-0.5 MG/3 ML Neb Soln NEB SCH ×3 (06:12→20:53)
[2022-08-11] MEDS: Rosuvastatin 10 MG Tab PO SCH (08:27)
[2022-08-11] MEDS: Metoprolol Succinate 50 MG Tab.ER PO SCH (08:27)
[2022-08-11] MEDS: amLODIPine 5 MG Tab PO SCH (08:28)
[2022-08-11] MEDS: guaiFENesin 600 MG Tab.ER PO SCH ×2 (08:28→21:38)
[2022-08-11] MEDS: Enoxaparin 40 MG/0.4 ML Syringe SUBCUT SCH (08:28)
[2022-08-11] MEDS: Acetaminophen 325 MG Tab PO PRN (12:51)
[2022-08-11] MEDS: Famotidine 10 MG Tab PO SCH (21:38)
[2022-08-11] MEDS: Pantoprazole 40 MG Tab.CR PO SCH (21:38)
[2022-08-12] MEDS: Piperacillin/Tazobactam 4.5 GM in Sodium Chloride 0.9% 100 ML IV SCH ×3 (02:10→16:29)
[2022-08-12] MEDS: Albuterol 0.083% 2.5 MG/3 ML Neb Soln NEB PRN ×2 (02:30→19:41)
[2022-08-12 05:20] LABS: BASOPHILS ABSOLUTE AUTO 0.01 K/mm3 (0.01-0.08); BASOPHILS PERCENT AUTO 0.1 % (0.1-1.2); EOSINOPHILS ABSOLUTE AUTO 0.16 K/mm3 (0.04-0.54); EOSINOPHILS PERCENT AUTO 2.4 (0.8-7.0); HEMATOCRIT 40.8 % (40.1-51.0); HEMOGLOBIN 13.5 gm/dl (13.7-17.5); IMMATURE GRAN ABSOLUTE AUTO 0.02 K/mm3 (0.00-0.10); IMMATURE GRAN PERCENT AUTO 0.3 % (<=1.0); LYMPHOCYTES PERCENT AUTO 14.8 % (21.8-53.1); MEAN CORPUSCULAR HGB CONC 33.1 g/dl (32.2-35.5); MEAN CORPUSCULAR VOLUME 93.8 fl (79.0-92.2); MEAN PLATELET VOLUME 9.1 fl (9.4-12.3); MONOCYTES ABSOLUTE AUTO 0.42 K/mm3 (0.30-0.82); MONOCYTES PERCENT AUTO 6.2 % (5.3-12.2); NEUTROPHILS ABSOLUTE AUTO 5.13 K/mm3 (1.78-5.38); NEUTROPHILS PERCENT AUTO 76.2 % (34.0-67.9); PLATELET COUNT,PLT 274 K/mm3 (163-337); RED BLOOD CELL COUNT 4.35 M/mm3 (4.63-6.08); WHITE BLOOD CELL COUNT,WBC 6.74 K/mm3 (4.23-9.07)
[2022-08-12 05:53] LABS: A/G RATIO 0.6 (1-2); ALBUMIN 2.5 g/dl (3.4-5.0); ANION GAP 10.5 (5-15); BILIRUBIN TOTAL 0.5 mg/dL (0.2-1.0); C-REACTIVE PROTEIN 3.2 mg/dL (<1.0); CALCIUM 8.6 mg/dL (8.5-10.1); EST CRCL DRUG DOSING (CG) 76.04 mL/min; POTASSIUM,K 3.5 mEq/L (3.5-5.1); PROTEIN TOTAL,TP 6.4 g/dl (6.4-8.2)
[2022-08-12] MEDS: Albuterol/Ipratropium 3.0-0.5 MG/3 ML Neb Soln NEB SCH ×3 (06:19→21:11)
[2022-08-12] MEDS: Acetaminophen 325 MG Tab PO PRN (08:43)
[2022-08-12] MEDS: guaiFENesin 600 MG Tab.ER PO SCH ×2 (08:43→20:09)
[2022-08-12] MEDS: Enoxaparin 40 MG/0.4 ML Syringe SUBCUT SCH (08:43)
[2022-08-12] MEDS: amLODIPine 5 MG Tab PO SCH (08:44)
[2022-08-12] MEDS: Rosuvastatin 10 MG Tab PO SCH (08:44)
[2022-08-12] MEDS: Metoprolol Succinate 50 MG Tab.ER PO SCH (08:44)
[2022-08-12] MEDS: methylPREDNISolone Sodium Succinate 40 MG/1 ML SDV IVPUSH SCH ×2 (10:11→20:21)
[2022-08-12] MEDS: Pantoprazole 40 MG Tab.CR PO SCH (20:08)
[2022-08-12] MEDS: Famotidine 10 MG Tab PO SCH (20:09)
[2022-08-13] MEDS: Piperacillin/Tazobactam 4.5 GM in Sodium Chloride 0.9% 100 ML IV SCH ×2 (00:51→08:46)
[2022-08-13 05:56] LABS: EOSINOPHILS PERCENT AUTO 0 (0.8-7.0); HEMATOCRIT 45.2 % (40.1-51.0); IMMATURE GRAN ABSOLUTE AUTO 0.03 K/mm3 (0.00-0.10); IMMATURE GRAN PERCENT AUTO 0.3 % (<=1.0); LYMPHOCYTES ABSOLUTE AUTO 0.78 K/mm3 (1.32-3.57); LYMPHOCYTES PERCENT AUTO 6.6 % (21.8-53.1); MEAN CORPUSCULAR HEMOGLOBIN 31.1 pg (25.7-32.2); MEAN CORPUSCULAR HGB CONC 33.4 g/dl (32.2-35.5); MEAN CORPUSCULAR VOLUME 93.2 fl (79.0-92.2); MEAN PLATELET VOLUME 9.8 fl (9.4-12.3); MONOCYTES ABSOLUTE AUTO 0.14 K/mm3 (0.30-0.82); MONOCYTES PERCENT AUTO 1.2 % (5.3-12.2); NEUTROPHILS ABSOLUTE AUTO 10.94 K/mm3 (1.78-5.38); NEUTROPHILS PERCENT AUTO 91.9 % (34.0-67.9); PLATELET COUNT,PLT 347 K/mm3 (163-337); RED BLOOD CELL COUNT 4.85 M/mm3 (4.63-6.08); WHITE BLOOD CELL COUNT,WBC 11.89 K/mm3 (4.23-9.07)
[2022-08-13 06:06] LABS: HEMOGLOBIN 15.1 gm/dl (13.7-17.5)
[2022-08-13] MEDS: Albuterol/Ipratropium 3.0-0.5 MG/3 ML Neb Soln NEB SCH (06:15)
[2022-08-13 06:18] LABS: ANION GAP 15.8 (5-15); BUN/CREATININE RATIO 10.8 (14-18); C-REACTIVE PROTEIN 2.5 mg/dL (<1.0); CREATININE 1.2 mg/dL (0.7-1.3); EST CRCL DRUG DOSING (CG) 63.37 mL/min; POTASSIUM,K 3.8 mEq/L (3.5-5.1)
[2022-08-13 06:22] LABS: SLIDE REVIEW ABNORMAL SMEAR
[2022-08-13] MEDS: Enoxaparin 40 MG/0.4 ML Syringe SUBCUT SCH (08:37)
[2022-08-13] MEDS: methylPREDNISolone Sodium Succinate 40 MG/1 ML SDV IVPUSH SCH (08:37)
[2022-08-13] MEDS: guaiFENesin 600 MG Tab.ER PO SCH (08:42)
[2022-08-13] MEDS: amLODIPine 5 MG Tab PO SCH (08:42)
[2022-08-13] MEDS: Rosuvastatin 10 MG Tab PO SCH (08:42)
[2022-08-13] MEDS: Metoprolol Succinate 50 MG Tab.ER PO SCH (08:42)
[2022-08-13] MEDS: Albuterol 0.083% 2.5 MG/3 ML Neb Soln NEB PRN (12:24)
== END 2022-08-13 12:58 | disposition home or self-care (01) | DRG 720 ==
LOC: JD.ED 15:52 → JD.MS 19:55
PROVIDERS: ADMIT Internal Medicine; ATTEND Internal Medicine
DX: A41.9 Sepsis, unspecified organism (principal); J15.9 Unspecified bacterial pneumonia; J96.01 Acute respiratory failure with hypoxia; E87.6 Hypokalemia; I10 Essential (primary) hypertension; E78.5 Hyperlipidemia, unspecified; F41.9 Anxiety disorder, unspecified; E66.9 Obesity, unspecified; J45.901 Unspecified asthma with (acute) exacerbation; G47.00 Insomnia, unspecified; K21.9 Gastro-esophageal reflux disease without esophagitis; H91.93 Unspecified hearing loss, bilateral; Z98.890 Other specified postprocedural states; Z89.9 Acquired absence of limb, unspecified; Z79.51 Long term (current) use of inhaled steroids; Z79.899 Other long term (current) drug therapy; Z68.36 Body mass index [BMI] 36.0-36.9, adult; Z86.16 Personal history of COVID-19
CPT/HCPCS: 0241U; 36415; 71045; 71045-26; 71046; 71046-26; 71250; 71250-26; 80048; 80053; 83605; 83735; 83880; 84484; 85025; 85027; 85379; 86140; 87040; 94640; 94667; 94668; 94761; 96365; 96375; 99231; 99232; 99239; 99284; 99285-25; A9270-GY; J0456; J0696; J1650; J2543; J2920; J3490; J7050; J7620-GY